=== PATIENT | male | born 1965 | race Caucasian/White ===

== ENCOUNTER → 2016-11-24 | Outpatient (CLI) | payer MEDICARE, OTHER ==
[2016-11-24 11:46] LABS: INR 1.3 (<1.1); Prothrombin Time 12.9 sec (9.0-12.0)
== END | disposition home or self-care (01) ==
LOC: LABWHC1 11:08
PROVIDERS: ATTEND Psychiatry & Neurology Neurology
DX: Z51.81 Encounter for therapeutic drug level monitoring (principal); D65 Disseminated intravascular coagulation [defibrination syndrome]; Z79.01 Long term (current) use of anticoagulants
CPT/HCPCS: 36415; 85610

== ENCOUNTER 2016-12-27 11:57 | Day surgery (SDC) | payer MEDICARE, OTHER ==
[2016-12-20 12:35] VITALS: BMI 34.8
[~2016-12-27 11:57] MED LIST: DEXAMETHASONE SOD PHOSPHATE 10 MG/ML 1 ML VIAL IV ONE; HEPARIN SODIUM,PORCINE 5,000 UNIT/ML 1 ML VIAL SQ ONE; LACTATED RINGERS 1,000 ML IV SCH; MIDAZOLAM 2 MG/2 ML VIAL IV PRN; ONDANSETRON 4 MG/2 ML VIAL IVP ONE; SCOPOLAMINE 1.5MG/72HR PATCH TRANSDERM ONE; ceFAZolin 2 GM in SODIUM CHLORIDE 0.9% 100 ML IVPB ONE
[2016-12-27] MEDS ORDERED: LIDOCAINE 1% 20 ML VIAL (10MG/ML) FOR IV START INTRADERMA ONE ×2 (12:21→12:25)
[2016-12-27] MEDS ORDERED: LACTATED RINGERS 1,000 ML IV ONE ×2 (12:24→15:15)
--- NOTE | 2016-12-27 12:41 | P.HPIHPCON ---
History of Present Illness H&P Date: 12/27/16 Chief Complaint: painful inguinal swellings Patient is a 51-year-old who presented with a left inguinal swelling which was used to lying down. The patient also has had previous history of melanoma excision with lymph node dissection on the right side. His no nausea or vomiting or fever no chills. His neurologic any more weight. Consent for Procedure: I have explained the operation/procedure to the patient, including the risks, benefits, side effects, alternative therapies (including not receiving the proposed treatment or service), the likelihood of the patient achieving his/her goals, and potential recuperation problems for the procedure/sedation/analgesia , as well as any blood products, if indicated. I also explained to the patient the risks, benefits and side effects of the alternatives, as well as the risks related to not receiving the proposed procedure, care, treatment, or services. - Constitutional Constitutional: Denies chills, Denies fever - EENT Eyes: denies blurred vision, denies pain Ears, nose, mouth and throat: Denies headache, Denies sore throat - Cardiovascular Cardiovascular: Denies chest pain, Denies shortness of breath - Respiratory Respiratory: Denies cough, Denies 7 - Gastrointestinal Gastrointestinal: Denies abdominal pain, Denies diarrhea, Denies nausea, Denies vomiting - Musculoskeletal Comment: Left groin discomfort at the site of the previous surgery Musculoskeletal: Denies myalgias - Integumentary Integumentary: Denies pruritus, Denies rash - Psychiatric Psychiatric: Denies anxiety, Denies depression - Endocrine Endocrine: Denies fatigue, Denies weight change - Hematologic/Lymphatic Hematologic/Lymphatic: Denies as per HPI, Denies easy bleeding, Denies easy bruising, Denies lymphadenopathy, Denies lymphedema, Denies thrombophilia Past Medical History Past Medical History: Cancer, Deep Vein Thrombosis (DVT), GERD/Reflux, Hyperlipidemia, Hypertension, Sleep Apnea/CPAP/BIPAP Additional Past Medical History / Comment(s): melanoma stage IV RT LEG, PAST JAMES WELDING INJ TO LT HAND , USES A CPAP MACHINE, HIATAL HERNIA ,DDD, CHRONIC BACK PAIN, MIGRAINES, DVT RUE History of Any Multi-Drug Resistant Organisms: MRSA Date of last positivie culture/infection: 2004 MDRO Source:: left index finger Additional Past Surgical History / Comment(s): left hand 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., right ziegler CA STAGE IV MELANOMA REMOVED), lymph node surgery RT LEG, PAST PAIN CLIINC PROCEDURES, RT ARM PICC LINE ,SINCE REMOVED, skin CA removed BILAT shoulders, EGD, RECENT SUN SPOTS REMOVED FROM FACE Past Anesthesia/Blood Transfusion Reactions: No Reported Reaction Smoking Status: Former smoker - Past Family History Mother Family Medical History: Hypertension Father Family Medical History: Diabetes Mellitus Medications and Allergies Home Medications Medication Instructions Recorded Confirmed Type Cyclobenzaprine [Flexeril] 10 mg PO BID 07/29/14 12/27/16 History Gabapentin [Neurontin] 300 mg PO Q6H 07/29/14 12/27/16 History Melatonin 10 mg PO HS 07/29/14 12/27/16 History Sennosides [Senokot] 8.6 mg PO BID 07/29/14 12/27/16 History Simvastatin [Zocor] 20 mg PO HS 07/29/14 12/27/16 History risperiDONE [RisperDAL] 0.5 mg PO HS 07/29/14 12/27/16 History traZODone HCL [Oleptro ER] 150 mg PO HS 07/29/14 12/27/16 History Ascorbic Acid [Vitamin C] 1,000 mg PO DAILY 11/13/15 12/27/16 History Citalopram Hydrobromide [CeleXA] 10 mg PO HS 11/13/15 12/27/16 History LORazepam [Ativan] 1 mg PO BID 11/13/15 12/27/16 History Multivit-Mins/Iron/Folic/Lycop 1 tab PO QAM 11/13/15 12/27/16 History [Centrum Men's Tablet] Vitamin B Complex 1 cap PO BID 11/13/15 12/27/16 History fentaNYL 75MCG/HR PATCH [Duragesic 1 patch TRANSDERM Q72H 11/13/15 12/27/16 History 75MCG/HR] Atenolol 100 mg PO QAM 12/07/15 12/27/16 History [place]-3 Fatty Acids/Fish Oil [Fish 1 cap PO QAM 12/07/15 12/27/16 History Oil 1,000 mg Softgel] Cholecalciferol [Vitamin D3] 5,000 unit PO DAILY 08/08/17 08/15/17 History Lisinopril [Prinivil] 10 mg PO DAILY 12/20/16 12/27/16 History Meclizine [Antivert] 25 mg PO TID 12/20/16 12/27/16 History Warfarin [Coumadin] 10 mg PO DAILY 12/20/16 12/27/16 History Allergies Allergy/AdvReac Type Severity Reaction Status Date / Time No Known Allergies Allergy Verified 12/27/16 12:14 Surgical - Exam Vital Signs Temp Pulse Resp BP Pulse Ox 98.4 F 82 18 145/86 96 12/27/16 12:19 12/27/16 12:19 12/27/16 12:19 12/27/16 12:19 12/27/16 12:19 - General well developed, well nourished, no distress - Eyes PERRL, normal ocular movement - ENT normal pinna, normal nares, normal mucosa - Neck trachea midline - Respiratory normal expansion, normal respiratory effort - Cardiovascular Warm extremities Rhythm: regular - Abdomen Abdomen: soft, non tender - Genitourinary Obvious reducible left inguinal hernia. Minimal right groin swelling at this time. Could simply be lymphadenopathy - Integumentary no rash, no abnormal pigmentation - Neurologic no disoriented, no combative - Musculoskeletal normal gait - Psychiatric oriented to time, oriented to person, oriented to place, speech is normal, memory intact Results - Imaging CT scan - abdomen: report reviewed US - pelvic: report reviewed (Patient is an large lymph nodes in both sides. He also is being followed for that for his melanoma. He is left inguinal swelling which is reducible. Clinically believe it is an inguinal hernia) Assessment and Plan (1) Melanoma Status: Acute (2) Inguinal hernia bilateral, non-recurrent Status: Acute (3) Deep venous thrombosis of upper extremity Status: Acute Plan: Patient's multiple medical problems. Flonase a previous history of DVT. NT with Coumadin toxicity. He also has a previous history of melanoma excision with the dissection on the right side. He presented with left left groin swelling. Antral in the right groin. Computed tomography scan and into that succeeded and did suggest an wall hernias bilaterally. Ultrasound repeated did not reveal anything. Clinical examination he jet dyeing machine tender with a swelling in the left side less on the right side. Due to the findings were Confirmed clinical examination I recommended arm and left inguinal hernia repair with mesh and possible bilateral opening of what I see his been consented he understands the risks and benefits I will proceed with the surgery.
[2016-12-27] MEDS ORDERED: GLYCOPYRROLATE 0.2 MG/ML 2 ML VIAL ONE (13:00)
[2016-12-27] MEDS ORDERED: fentaNYL (PF) 50 MCG/ML 2 ML AMP ONE (13:00)
[2016-12-27] MEDS ORDERED: PROPOFOL 10 MG/ML 20 ML VIAL IV ONE (13:00)
[2016-12-27] MEDS ORDERED: HYDROmorphone (PF) 1 MG/ML ONE (13:00)
[2016-12-27] MEDS ORDERED: ROCURONIUM BROMIDE 10 MG/ML 10 ML VIAL IV ONE (13:00)
[2016-12-27] MEDS ORDERED: LIDOCAINE 1% INJ 10MG/ML (20 ML MDV) ONE (13:00)
[2016-12-27] MEDS ORDERED: SUCCINYLCHOLINE CHLORIDE VIAL 200 MG/10 ML VIAL IV ONE (13:00)
[2016-12-27] MEDS ORDERED: MIDAZOLAM 2 MG/2 ML VIAL ONE (13:00)
[2016-12-27] MEDS ORDERED: NEOSTIGMINE 1 MG/ML 10 ML VIAL ONE (13:00)
[2016-12-27 13:14] LABS: Prothrombin Time 10.6 sec (9.0-12.0)
[2016-12-27] MEDS ORDERED: BUPIVACAINE-EPI 0.5%-1:200,000 10 ML VIAL SQ ONE (13:31)
[2016-12-27 15:24] VITALS: RESP 16; TEMP 97.7
--- NOTE | 2016-12-27 15:37 | P.OP ---
Date of Procedure: 12/27/16 Preoperative Diagnosis: Left inguinal hernia, possible bilateral Postoperative Diagnosis: Left indirect inguinal hernia with large cord lipoma Procedure(s) Performed: Robot assisted laparoscopic repair of left inguinal hernia with mesh Implants: Anesthesia: JESU Surgeon: Quoc Carter Estimated Blood Loss (ml): 40 Pathology: none sent Condition: stable Disposition: PACU Indications for Procedure: Operative Findings: small indirect inguinal hernia with a large cord lipoma on the left side Description of Procedure: Patient is seen in the preoperative area and informed consent was obtained patient and then The patient was brought to the operating room and placed in supine position. General anesthesia with endotracheal intubation was performed as per anesthesia team. A gallego catheter was inserted under sterile aseptic precautions. Chlorhexidine was used to prep the skin followed by application of sterile drapes . He was placed in the lithotomy position. A timeout was performed to verify correct patient, correct procedure and correct side. Patient was confirmed to receive perioperative IV antibiotics, subcutaneous heparin 5000 units and bilateral SCDs were placed. The left upper quadrant point was identified and a stab incision was made. I was unsuccessful entering the abdominal cavity appropriately with a Veress needle therefore a 5 mm port was introduced into the left upper quadrant using the Optiview technique after which a 12 mm port was placed in the supraumbilical position and a 8 mm port in the right lower quadrant and then after that the left-sided 5 mm port was replaced with a robot 8 mm port under direct vision. The robot was then docked with the central camera port and the 2 side working ports. The 30 degree of scope was introduced and the abdomen down through the 12 mm port site. Bipolar fenestrated forceps was taken in the left hand and monopolar scissors in the right hand after which the median umbilical fold was retracted laterally towards the left side a small incision was made at the junction of the umbilical fold and the peritoneum and carried all the way laterally thus creating a small plane in the preperitoneal space. The preperitoneal plane was sticky with a difficult dissection to pull the peritoneum down and once that was done a small indirect inguinal hernia was identified reduced. There was also a large cord lipoma which was dissected off the cord meticulously in taken off. Dissection down towards the Jesus's ligament was very difficult and a lot of fatty tissue there. There was some bleeding which required use of 2 sponges and then electrocautery to control. After appropriate control of bleeding and appropriate flap creation was trimmed 10 x 15 Bard Pro fondant puff maker mesh was introduced and placed. The peritoneum was closed with the help of a six- inch V lock and the holes were closed with the help of 3-0 Vicryl. All the sponges needles were removed. There was no hernia in the right side. Patient understood well the wound complications. His exudate and taken to recovery room in stable condition. Plan - Discharge Summary New Discharge Prescriptions: New Ibuprofen [Motrin] 800 mg PO Q8HR PRN #30 tab PRN Reason: Pain No Action risperiDONE [RisperDAL] 0.5 mg PO HS Simvastatin [Zocor] 20 mg PO HS Sennosides [Senokot] 8.6 mg PO BID Gabapentin [Neurontin] 300 mg PO Q6H Cyclobenzaprine [Flexeril] 10 mg PO BID traZODone HCL [Oleptro ER] 150 mg PO HS Melatonin 10 mg PO HS LORazepam [Ativan] 1 mg PO BID Citalopram Hydrobromide [CeleXA] 10 mg PO HS fentaNYL 75MCG/HR PATCH [Duragesic 75MCG/HR] 1 patch TRANSDERM Q72H Vitamin B Complex 1 cap PO BID Multivit-Mins/Iron/Folic/Lycop [Centrum Men's Tablet] 1 tab PO QAM Ascorbic Acid [Vitamin C] 1,000 mg PO DAILY Atenolol 100 mg PO QAM [place]-3 Fatty Acids/Fish Oil [Fish Oil 1,000 mg Softgel] 1 cap PO QAM Warfarin [Coumadin] 10 mg PO DAILY Meclizine [Antivert] 25 mg PO TID Lisinopril [Prinivil] 10 mg PO DAILY Cholecalciferol [Vitamin D3] 5,000 unit PO DAILY Discharge Medication List Cyclobenzaprine [Flexeril] 10 mg PO BID 07/29/14 [History] Gabapentin [Neurontin] 300 mg PO Q6H 07/29/14 [History] Melatonin 10 mg PO HS 07/29/14 [History] Sennosides [Senokot] 8.6 mg PO BID 07/29/14 [History] Simvastatin [Zocor] 20 mg PO HS 07/29/14 [History] risperiDONE [RisperDAL] 0.5 mg PO HS 07/29/14 [History] traZODone HCL [Oleptro ER] 150 mg PO HS 07/29/14 [History] Ascorbic Acid [Vitamin C] 1,000 mg PO DAILY 11/13/15 [History] Citalopram Hydrobromide [CeleXA] 10 mg PO HS 11/13/15 [History] LORazepam [Ativan] 1 mg PO BID 11/13/15 [History] Multivit-Mins/Iron/Folic/Lycop [Centrum Men's Tablet] 1 tab PO QAM 11/13/15 [ History] Vitamin B Complex 1 cap PO BID 11/13/15 [History] fentaNYL 75MCG/HR PATCH [Duragesic 75MCG/HR] 1 patch TRANSDERM Q72H 11/13/15 [ History] Atenolol 100 mg PO QAM 12/07/15 [History] [place]-3 Fatty Acids/Fish Oil [Fish Oil 1,000 mg Softgel] 1 cap PO QAM 12/07/15 [ History] Cholecalciferol [Vitamin D3] 5,000 unit PO DAILY 12/20/16 [History] Lisinopril [Prinivil] 10 mg PO DAILY 12/20/16 [History] Meclizine [Antivert] 25 mg PO TID 12/20/16 [History] Warfarin [Coumadin] 10 mg PO DAILY 12/20/16 [History] Ibuprofen [Motrin] 800 mg PO Q8HR PRN #30 tab 12/27/16 [Rx]
[2016-12-27] MEDS: HYDROmorphone 1 MG/ML 1 ML SYRINGE IVP PRN ×2 (16:10→16:20)
[2016-12-27 17:02] VITALS: BP 108/63; PULSE 105
== END 2016-12-27 17:45 | disposition home or self-care (01) ==
LOC: OR 11:57 → EDSTATUS 13:00 → OR 17:45
PROVIDERS: ATTEND Surgery
DX: K40.90 Unilateral inguinal hernia, without obstruction or gangrene, not specified as recurrent (principal); D17.6 Benign lipomatous neoplasm of spermatic cord; Z79.01 Long term (current) use of anticoagulants; Z79.899 Other long term (current) drug therapy; I10 Essential (primary) hypertension; E78.5 Hyperlipidemia, unspecified; G47.33 Obstructive sleep apnea (adult) (pediatric); K21.9 Gastro-esophageal reflux disease without esophagitis
CPT/HCPCS: 85610; 49650; C1781; J2250; J0330; J1644; J1100; J2710; J0690; J2405; J2001; J3010; J1170; J2704

== ENCOUNTER → 2017-02-03 | Outpatient (CLI) | payer MEDICARE, OTHER ==
--- NOTE | 2017-02-03 10:31 | CT ---
EXAMINATION TYPE: CT brain wo con DATE OF EXAM: 02/03/2017 COMPARISON: NONE HISTORY: Headaches CT DLP: 1029.9 mGycm. Automated Exposure Control for Dose Reduction was Utilized. TECHNIQUE: CT scan of the head is performed without contrast. FINDINGS: There is no acute intracranial hemorrhage, mass effect, or midline shift identified. The ventricles and sulci are within normal limits in size. The globes are intact and the visualized sin uses are clear. There is sclerosis of the frontal calvarium which is nonspecific. No destructive changes seen. 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 IMPRESSION: 1. No acute intracranial hemorrhage, mass effect, or midline shift is seen. If there is concern for i ntracranial metastases dedicated MRI with contrast would be recommended. 2. Nonspecific sclerosis of the frontal bone.
--- NOTE | 2017-02-03 10:51 | US ---
EXAMINATION TYPE: US venous doppler duplex LE RT DATE OF EXAM: 02/03/2017 10:44 AM COMPARISON: NONE CLINICAL HISTORY: R60.0 edema. SIDE PERFORMED: Right TECHNIQUE: The lower extremity deep venous system is examined utilizing real time linear array sonog kacey with graded compression, doppler sonography and color-flow sonography. VESSELS IMAGED: External Iliac Vein (EIV) Common Femoral Vein Deep Femoral Vein Greater Saphenous Vein * Femoral Vein Popliteal Vein Small Saphenous Vein * Proximal Calf Veins (* superficial vessels) Patient has moderate swelling. Right Leg: Negative for DVT Results phoned to Wen LAWSON) at office immediately following exam. IMPRESSION: 1. No diagnostic evidence of DVT as visualized.
== END | disposition home or self-care (01) ==
LOC: RADCTMAIN 09:58
PROVIDERS: ATTEND Physician Assistant
DX: G37.8 Other specified demyelinating diseases of central nervous system (principal); R51 Headache; R60.0 Localized edema
CPT/HCPCS: 70450

== ENCOUNTER → 2017-02-16 | Outpatient (CLI) | payer MEDICARE, OTHER ==
[2017-02-16 09:53] LABS: Appearance,Urine Clear (Clear); Bilirubin,Urine Negative (Negative); Glucose,Urine (UA) Negative (Negative); Ketones,Urine Negative (Negative); Leukocyte Esterase,Urine Negative (Negative); Nitrite,Urine Negative (Negative); Protein,Urine Negative (Negative); Specific Gravity,Urine 1.015 (1.001-1.035); UA Billing (MACRO vs. MICRO) CHEM; Urobilinogen,Urine <2.0 mg/dL (<2.0)
[2017-02-16 09:54] LABS: Basophils % (A) 0 %; CH 32.7; CHCM 34.6; Eosinophils # (A) 0.1 k/uL (0-0.7); Eosinophils % (A) 2 %; HCT 48.4 % (39.0-53.0); HDW 2.92; HGB 16.8 gm/dL (13.0-17.5); Luc # (Auto) 0.18; Luc % (Auto) 3; Lymphocytes % (A) 30 %; MCH 32.9 pg (25.0-35.0); MCHC 34.6 g/dL (31.0-37.0); MCV 94.9 fL (80.0-100.0); Mean Platelet Volume 7.2; Monocytes # (A) 0.3 k/uL (0-1.0); Monocytes % (A) 5 %; Neutrophils # (A) 3.9 k/uL (1.3-7.7); Neutrophils % (A) 60 %; RBC 5.11 m/uL (4.30-5.90); RDW 13.1 % (11.5-15.5); WBC 6.5 k/uL (3.8-10.6); WBC (Perox) 6.42
[2017-02-16 10:13] LABS: Anion Gap 11 mmol/L; Blood Urea Nitrogen 11 mg/dL (9-20); Calcium 9.2 mg/dL (8.4-10.2); Carbon Dioxide 26 mmol/L (22-30); Chloride 105 mmol/L (98-107); Glucose 110 mg/dL (74-99); Non-African American GFR(MDRD) >60 (>60 ml/min/1.73 sqM); Potassium 4.6 mmol/L (3.5-5.1); Sodium 142 mmol/L (137-145)
== END | disposition home or self-care (01) ==
LOC: LABPAT 09:14
PROVIDERS: ATTEND Urology
DX: Z01.812 Encounter for preprocedural laboratory examination (principal); N52.9 Male erectile dysfunction, unspecified; R35.0 Frequency of micturition; Z79.899 Other long term (current) drug therapy
CPT/HCPCS: 36415; 80048; 81003; 85025; 87086

== ENCOUNTER → 2017-02-21 | Outpatient (CLI) | payer MEDICARE, OTHER ==
--- NOTE | 2017-02-22 01:12 | MR ---
EXAMINATION TYPE: MR lumbar spine wo/w con DATE OF EXAM: 02/21/2017 COMPARISON: NONE HISTORY: 51-year-old male with previous low back surgery 12/27/2016, back pain. Technique: Multiplanar, multisequence images of the lumbar spine were obtained before and after admin istration of 11.5 mL intravenous Gadavist gadolinium contrast. FINDINGS: Vertebral body heights are preserved and alignment is maintained. Facet arthropathy mid to lower lumbar spine. Variable mild desiccation of intervertebral discs with bulging discs. Posterior annular fissure is se en at L1-L2, L2-L3, and L4-L5. Conus medullaris is normal. No suspicious bone marrow replacement. At T12-L1, no spinal canal or neuroforaminal stenosis. At L1-L2, mild bulging disc and mild facet degenerative change. No significant canal or foraminal juan josé nosis. At L2-L3, mild bulging disc and mild facet degenerative change. No significant canal or foraminal juan josé nosis. At L3-L4, there is facet degenerative change with minimal bilateral inferior foraminal narrowing. No spinal canal stenosis. At L4-L5, there is bulging disc with hypertrophic facet arthropathy and posterior annular fissure. Ch anges result in moderate to severe right and moderate left neuroforaminal stenosis. There appears to be prominent displacement of the exiting nerve roots traverse their neuroforamina. No spinal canal st enosis. At L5-S1, minimal bulging disc. There is also facet degenerative change. Changes result in mild right neuroforaminal stenosis. No spinal canal stenosis. No abnormal enhancement with the spinal canal. IMPRESSION: 1. Mild multilevel degenerative disc disease with variable mild disc desiccation and disc bulging. Po sterior annular fissures are present at L1-L2, L2-L3, L4-L5. 2. Additional facet arthropathy mid to lower lumbar spine. 3. Changes result in moderate to severe right and moderate left neuroforaminal stenosis at L4-L5 with prominent displacement of the exiting L4 nerve roots as they traverse the neural foramina. 4. No canal compromise identified.
== END | disposition home or self-care (01) ==
LOC: RADMRIMAIN 15:06
PROVIDERS: ATTEND Physician Assistant
DX: M51.16 Intervertebral disc disorders with radiculopathy, lumbar region (principal); M99.73 Connective tissue and disc stenosis of intervertebral foramina of lumbar region; M46.96 Unspecified inflammatory spondylopathy, lumbar region; C43.9 Malignant melanoma of skin, unspecified; M79.604 Pain in right leg
CPT/HCPCS: 72158; A9581

== ENCOUNTER 2017-02-22 06:27 | Day surgery (SDC) | payer MEDICARE, OTHER ==
[2017-02-16 14:55] VITALS: BMI 34.7
[~2017-02-22 06:27] MED LIST changes: +AMPICILLIN 1,000 MG in SODIUM CHLORIDE 0.9% 50 ML IVPB ONE; +GENTAMICIN 160 MG in SODIUM CHLORIDE 0.9% 100 ML IVPB ONE; -HEPARIN SODIUM,PORCINE 5,000 UNIT/ML 1 ML VIAL SQ ONE; +LIDOCAINE 1% 20 ML VIAL (10MG/ML) FOR IV START INTRADERMA PRN; -ceFAZolin 2 GM in SODIUM CHLORIDE 0.9% 100 ML IVPB ONE
[2017-02-22] MEDS ORDERED: LABETALOL 5 MG/ML VIAL MDV IVP STA (07:06)
[2017-02-22 07:14] LABS: INR 1.1 (<1.2); Partial Thromboplastin Time 23.8 sec (22.0-30.0)
[2017-02-22] MEDS ORDERED: GLYCOPYRROLATE 0.2 MG/ML 2 ML VIAL ONE (07:29)
[2017-02-22] MEDS ORDERED: LIDOCAINE 1% INJ 10MG/ML (20 ML MDV) ONE (07:29)
[2017-02-22] MEDS ORDERED: PROPOFOL 10 MG/ML 20 ML VIAL IV ONE (07:29)
[2017-02-22] MEDS ORDERED: HYDROmorphone (PF) 1 MG/ML ONE (07:29)
[2017-02-22] MEDS ORDERED: PHENYLEPHRINE-0.9% NACL SYG 1 MG/10 ML SYRINGE ONE (07:29)
[2017-02-22] MEDS ORDERED: SUCCINYLCHOLINE CHLORIDE VIAL 200 MG/10 ML VIAL IV ONE (07:29)
[2017-02-22] MEDS ORDERED: NEOSTIGMINE 1 MG/ML 10 ML VIAL ONE (07:29)
[2017-02-22] MEDS ORDERED: fentaNYL (PF) 50 MCG/ML 2 ML AMP ONE (07:29)
[2017-02-22] MEDS ORDERED: ROCURONIUM BROMIDE 10 MG/ML 10 ML VIAL IV ONE (07:29)
[2017-02-22] MEDS ORDERED: MIDAZOLAM 2 MG/2 ML VIAL ONE (07:29)
[2017-02-22] MEDS ORDERED: GENTAMICIN 80 MG in SODIUM CHLORIDE 0.9% 200 ML IRRIGATION ONE (08:27)
--- NOTE | 2017-02-22 09:23 | P.OP ---
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 He has had impotence ever since his surgical procedure. He has failed oral medication , testosterone replacement and declined other alternatives. Discussed at length a surgical implant. He understands risks and complications including infection bleeding pain injury to adjacent organs erosion lack of satisfaction and if fails correction whatsoever. He understands and accepts that. Description of Procedure: the patient is brought to the operating suite and given a successful general endotracheal anesthesia. He has a sterile prep and drape. A midline incision from the base of the penis just above the pubis was made. The subcutaneous tissues identified and opened. The rectus fascias identified and opened in the midline. The corpora cavernosum bilaterally are exposed. The rectus fascia is opened in the midline. The prevesical space is identified and opened. A pouch was created for the balloon reservoir. The balloon reservoir was placed with the tubing coming out through the external ring. The rectus fascias closed with 0 PDS. The balloon reservoir is filled with 65 mL of saline. Each corpora identified and cleaned from subcutaneous tissue. Stay stitches with 3-0 PDS are placed in the corpora. Corporotomies were made bilaterally. Corpora dilated proximally and distally with Metzenbaum scissors and Hegar dilators 9-14. The measurement of the corpora 10 cm proximal and 10 cm distal bilaterally. I will use an 18 cm implant with 2 cm rear tip extenders. The implants are prepared. I then used the Mandie introducer to pass the implants into the corpora distally bilaterally. I then pass the proximal ends of the implant into the corpora bilaterally. Implants are inflated and then deflated without buckling. I closed the corporotomies with running 3-0 PDS. I again inflate and deflate the implant and it is seated nicely. I then created a space for the pump in the right hemiscrotum. I then connected the reservoir to the pump with straight connectors. I then pump the implant one more time to make sure it inflates and deflates. It does nicely. I then irrigate thoroughly. I closed the subcutaneous tissue with 3-0 chromic. The skin is closed with 4-0 Vicryl. The bladder is drained. The patient's awakened and returned recovery room good condition. Blood loss was 25 mL. He'll be discharged home upon recovery and found the office in one week.
[2017-02-22 09:31] VITALS: TEMP 96.9
[2017-02-22] MEDS: HYDROmorphone 0.5 MG/0.5 ML SYRINGE IVP PRN ×2 (09:48→10:10)
[2017-02-22] MEDS ORDERED: HYDROcodone/APAP 7.5-325MG 1 EACH TAB PO ONE (11:06)
[2017-02-22] MEDS ORDERED: LACTATED RINGERS 1,000 ML IV ONE (11:18)
[2017-02-22 13:58] VITALS: BP 130/76; PULSE 60; RESP 18
== END 2017-02-22 14:03 | disposition home or self-care (01) ==
LOC: OR 06:27
PROVIDERS: ATTEND Urology
DX: N52.8 Other male erectile dysfunction (principal); E29.1 Testicular hypofunction; Z98.890 Other specified postprocedural states; M54.9 Dorsalgia, unspecified; Z85.820 Personal history of malignant melanoma of skin; Z86.718 Personal history of other venous thrombosis and embolism; Z79.01 Long term (current) use of anticoagulants; E78.5 Hyperlipidemia, unspecified; I10 Essential (primary) hypertension; F32.9 Major depressive disorder, single episode, unspecified; G47.33 Obstructive sleep apnea (adult) (pediatric); Z87.891 Personal history of nicotine dependence; K21.9 Gastro-esophageal reflux disease without esophagitis; Z86.14 Personal history of Methicillin resistant Staphylococcus aureus infection; K44.9 Diaphragmatic hernia without obstruction or gangrene; N20.0 Calculus of kidney; Z79.82 Long term (current) use of aspirin; Z79.891 Long term (current) use of opiate analgesic; Z79.52 Long term (current) use of systemic steroids; Z79.899 Other long term (current) drug therapy; Z88.5 Allergy status to narcotic agent
CPT/HCPCS: 54405; 85610; 85730; C1713; J2250; J0330; J1580 ×2; J1100; J2710; J2405; J2001; J3010; J0290; J1170 ×2; J2370; J2704

== ENCOUNTER 2017-05-29 10:54 | Emergency (ER) | payer MEDICARE, OTHER ==
[2017-05-29] MEDS ORDERED: HYDROmorphone 2 MG/ML 1 ML SYRINGE IVP STA (12:46)
[2017-05-29] MEDS ORDERED: SODIUM CHLORIDE 0.9% 1,000 ML IV STA ×2 (12:46)
[2017-05-29] MEDS ORDERED: RX INFO: IV CONTRAST WAS GIVEN 1 EACH MISC MISCELLANE PRN (12:46)
[2017-05-29] MEDS ORDERED: ONDANSETRON 4 MG/2 ML VIAL IVP STA (12:46)
[2017-05-29] MEDS ORDERED: PANTOPRAZOLE 40 MG/10 ML VIAL IVP STA (12:46)
[2017-05-29 13:13] LABS: Appearance,Urine Clear (Clear); Bilirubin,Urine Negative (Negative); Blood,Urine Negative (Negative); Color,Urine Dark Yellow; Glucose,Urine (UA) Negative (Negative); Ketones,Urine Negative (Negative); Leukocyte Esterase,Urine Negative (Negative); Nitrite,Urine Negative (Negative); PH, Urine 5.5 (5.0-8.0); Protein,Urine Negative (Negative); Specific Gravity,Urine 1.019 (1.001-1.035); Urobilinogen,Urine <2.0 mg/dL (<2.0)
[2017-05-29 13:15] LABS: Basophils # (A) 0.1 k/uL (0-0.2); Basophils % (A) 0 %; Eosinophils # (A) 0.2 k/uL (0-0.7); Eosinophils % (A) 2 %; HCT 46.4 % (39.0-53.0); HGB 15.5 gm/dL (13.0-17.5); Lymphocytes # (A) 2.1 k/uL (1.0-4.8); Lymphocytes % (A) 19 %; MCH 31.2 pg (25.0-35.0); MCHC 33.4 g/dL (31.0-37.0); MCV 93.5 fL (80.0-100.0); Monocytes # (A) 0.5 k/uL (0-1.0); Monocytes % (A) 5 %; Neutrophils # (A) 8.1 k/uL (1.3-7.7); Neutrophils % (A) 73 %; Platelet Count 190 k/uL (150-450); RBC 4.96 m/uL (4.30-5.90); RDW 14.2 % (11.5-15.5); WBC 11.1 k/uL (3.8-10.6)
[2017-05-29 13:21] LABS: INR 2.8 (<1.2); Partial Thromboplastin Time 31.1 sec (22.0-30.0); Prothrombin Time 24.9 sec (9.0-12.0)
[2017-05-29 13:22] LABS: ALT 44 U/L (21-72); AST 41 U/L (17-59); Albumin 4.4 g/dL (3.5-5.0); Alkaline Phosphatase 58 U/L (38-126); Amylase 55 U/L (30-110); Anion Gap 10 mmol/L; Blood Urea Nitrogen 14 mg/dL (9-20); Calcium 9.3 mg/dL (8.4-10.2); Carbon Dioxide 28 mmol/L (22-30); Chloride 105 mmol/L (98-107); Glucose 99 mg/dL (74-99); Lipase 115 U/L (23-300); Potassium 4.4 mmol/L (3.5-5.1); Sodium 143 mmol/L (137-145); Total Bilirubin 0.7 mg/dL (0.2-1.3); Total Protein 7.2 g/dL (6.3-8.2)
--- NOTE | 2017-05-29 14:00 | CT ---
EXAMINATION TYPE: CT abdomen pelvis w con DATE OF EXAM: 05/29/2017 COMPARISON: NONE HISTORY: RLQ pain CT DLP: 1568.9 mGycm CONTRAST: CT scan of the abdomen and pelvis is performed without Oral Contrast and with IV Contrast, patient in jected with 100 mL of Omnipaque 300. FINDINGS: LUNG BASES-: No visible nodule. No infiltrate. LIVER/GB: No calcified gallstones. No space occupying hepatic lesion. Biliary tree is of normal ca liber. PANCREAS: No inflammation. No distinct mass. SPLEEN: No splenic enlargement. No lesion seen. ADRENALS: No nodule. No thickening. KIDNEYS/BLADDER: No hydronephrosis. Nonobstructing sub-3 mm calculus lower pole right kidney.. No d isctinct renal mass. Urinary bladder grossly unremarkable. BOWEL: Normal appendix. Normal bowel caliber. No inflammation. GENITAL ORGANS: No gross abnormality. LYMPH NODES: No greater than 1cm abdominal or pelvic lymph nodes are appreciated. AORTA: No significant abnormality. OSSEOUS STRUCTURES: No significant abnormality is seen. OTHER: Penile implant intact. No significant additional abnormality is seen. IMPRESSION: 1. Nonobstructing nephrolithiasis.
--- NOTE | 2017-05-29 14:38 | ED ---
Abdominal Pain HPI - General Chief Complaint: Abdominal Pain Stated Complaint: ABDOMINAL PAIN Time Seen by Provider: 05/29/17 12:41 Source: patient Mode of arrival: ambulatory Limitations: no limitations - History of Present Illness Initial Comments: This 51-year-old white male presents with a complaint of some abdominal pain, nausea, and vomiting which is been present over the past 2 days. He denies any diarrhea. He denies any known fevers. The pain is primarily into his right lower abdomen. He denies any previously known similar incidents. He has had problems with a right inguinal hernia in the past. He apparently underwent surgery on his left inguinal hernia several months ago but they did not complete the right side as he had some swollen lymph nodes in the area. He states that the pain is fairly severe. He does have a fentanyl patch but is not helping. He does have a history of melanoma but this currently is in remission. He denies any frequency urgency or dysuria. He does complain of some fatigue over the past 2 days as well. No other complaints or modifying factors. - Related Data Home Medications Medication Instructions Recorded Confirmed Cyclobenzaprine [Flexeril] 10 mg PO BID 07/29/14 05/29/17 Gabapentin [Neurontin] 300 mg PO Q6H 07/29/14 05/29/17 Melatonin 10 mg PO HS 07/29/14 05/29/17 Sennosides [Senokot] 8.6 mg PO BID 07/29/14 05/29/17 Simvastatin [Zocor] 20 mg PO DAILY 07/29/14 05/29/17 risperiDONE [RisperDAL] 0.5 mg PO HS 07/29/14 05/29/17 Ascorbic Acid [Vitamin C] 2,000 mg PO DAILY 11/13/15 05/29/17 Citalopram Hydrobromide [CeleXA] 10 mg PO DAILY 11/13/15 05/29/17 LORazepam [Ativan] 1 mg PO BID 11/13/15 05/29/17 Multivit-Mins/Iron/Folic/Lycop 1 tab PO QAM 11/13/15 05/29/17 [Centrum Men's Tablet] Vitamin B Complex 1 cap PO BID 11/13/15 05/29/17 fentaNYL 75MCG/HR PATCH [Duragesic 1 patch TRANSDERM Q72H 11/13/15 05/29/17 75MCG/HR] Atenolol 100 mg PO QAM 12/07/15 05/29/17 [place]-3 Fatty Acids/Fish Oil [Fish 1 cap PO QAM 12/07/15 05/29/17 Oil 1,000 mg Softgel] Lisinopril [Prinivil] 10 mg PO DAILY 12/20/16 05/29/17 Meclizine [Antivert] 25 mg PO TID 12/20/16 05/29/17 Warfarin [Coumadin] 5 mg PO BID 02/16/17 05/29/17 Cholecalciferol [Vitamin D3] 500 unit PO DAILY 05/29/17 05/29/17 Simethicone [Gas-X] 125 mg PO BID 05/29/17 05/29/17 traZODone HCL 150 mg PO DAILY 05/29/17 05/29/17 Previous Rx's Medication Instructions Recorded Dicyclomine [Bentyl] 20 mg PO QID PRN #20 tablet 05/29/17 Ondansetron [Zofran ODT] 8 mg PO Q8HR PRN #12 tab 05/29/17 Allergies Allergy/AdvReac Type Severity Reaction Status Date / Time No Known Allergies Allergy Verified 05/29/17 12:40 Review of Systems ROS Statement: Those systems with pertinent positive or pertinent negative responses have been documented in the HPI. ROS Other: All systems not noted in ROS Statement are negative. 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., right ziegler CA STAGE IV MELANOMA REMOVED), lymph node surgery RT LEG, PAST PAIN CLIINC PROCEDURES, RT ARM PICC LINE ,SINCE REMOVED, skin CA removed BILAT shoulders, EGD, RECENT SUN SPOTS REMOVED FROM FACE Past Anesthesia/Blood Transfusion Reactions: No Reported Reaction Past Psychological History: Depression Smoking Status: Former smoker Past Alcohol Use History: None Reported Past Drug Use History: None Reported - Past Family History Mother Family Medical History: Hypertension Father Family Medical History: Diabetes Mellitus General Exam - General Exam Comments Initial Comments: GENERAL: The patient is well nourished and well hydrated. VITAL SIGNS: Heart rate, blood pressure, respiratory rate reviewed as recorded in nurse's notes. EYES: Pupils are round and reactive. Extraocular movements are intact. No conjunctival / lid redness or swelling. ENT: No external evidence of injury, swelling, or ecchymosis. Airway is patent. Throat is clear. NECK: Nontender. No swelling or evidence of injury. No subcutaneous emphysema. Trachea is midline. No thyroid mass. HEART: Regular rate and rhythm. Good peripheral pulses. LUNGS/CHEST: Breath sounds clear and equal bilaterally. No rales, rhonchi, or wheezes. No ecchymosis, subcutaneous emphysema, or tenderness. ABDOMEN: There is some mild tenderness present in the right lower abdomen. No palpable masses or organomegaly. No peritoneal signs. No abdominal wall swelling or ecchymosis. Genitourinary: There is a penile pump in place. There is no identifiable hernias noted. EXTREMITIES: No extremity tenderness. Normal muscle tone and function. No thoracolumbar tenderness. NEUROLOGIC: Sensation is grossly intact. Cranial nerve exam reveals face is symmetrical, tongue is midline, speech is clear. SKIN: No abrasions or ecchymosis is noted. No induration or masses noted. PSYCHIATRIC: Alert and oriented. Appropriate behavior and judgment. Limitations: no limitations Course Vital Signs 05/29/17 11:13 Temperature 97.9 F Pulse Rate 86 Respiratory 20 Rate Blood Pressure 189/92 O2 Sat by Pulse 97 Oximetry Medical Decision Making - Medical Decision Making The patient was seen and examined. All diagnostics were reviewed. The patient receives Dilaudid and Zofran intravenously. The laboratory overall is fairly unremarkable with a very minimal leukocytosis. The urinalysis is clear. Computed tomography scan of the abdomen and pelvis does show some nonobstructing nephrolithiasis. There is no evidence of appendicitis. No other acute findings are noted. He is feeling improved on recheck. Overall, it is felt as though he may have a degree of viral gastritis or gastroenteritis. He is not having any diarrhea constipation currently but he is on heavy narcotics. Nevertheless, it is felt as though he is stable for discharge. Return parameters are discussed in detail. - Lab Data Result diagrams: 05/29/17 12:53 05/29/17 12:53 Lab Results 05/29/17 05/29/17 05/29/17 Range/Units 12:53 12:53 12:53 WBC 11.1 H (3.8-10.6) k/uL RBC 4.96 (4.30-5.90) m/uL Hgb 15.5 (13.0-17.5) gm/dL Hct 46.4 (39.0-53.0) % MCV 93.5 (80.0-100.0) fL MCH 31.2 (25.0-35.0) pg MCHC 33.4 (31.0-37.0) g/dL RDW 14.2 (11.5-15.5) % Plt Count 190 (150-450) k/uL Neutrophils % 73 % Lymphocytes % 19 % Monocytes % 5 % Eosinophils % 2 % Basophils % 0 % Neutrophils # 8.1 H (1.3-7.7) k/uL Lymphocytes # 2.1 (1.0-4.8) k/uL Monocytes # 0.5 (0-1.0) k/uL Eosinophils # 0.2 (0-0.7) k/uL Basophils # 0.1 (0-0.2) k/uL PT (9.0-12.0) sec INR (<1.2) APTT (22.0-30.0) sec Sodium 143 (137-145) mmol/L Potassium 4.4 (3.5-5.1) mmol/L Chloride 105 (98-107) mmol/L Carbon Dioxide 28 (22-30) mmol/L Anion Gap 10 mmol/L BUN 14 (9-20) mg/dL Creatinine 1.16 (0.66-1.25) mg/dL Est GFR (MDRD) Af Amer >60 (>60 ml/min/1.73 sqM) Est GFR (MDRD) Non-Af >60 (>60 ml/min/1.73 sqM) Glucose 99 (74-99) mg/dL Plasma Lactic Acid Shay (0.7-2.0) mmol/L Calcium 9.3 (8.4-10.2) mg/dL Total Bilirubin 0.7 (0.2-1.3) mg/dL AST 41 (17-59) U/L ALT 44 (21-72) U/L Alkaline Phosphatase 58 (38-126) U/L Total Protein 7.2 (6.3-8.2) g/dL Albumin 4.4 (3.5-5.0) g/dL Amylase 55 (30-110) U/L Lipase 115 (23-300) U/L Urine Color Dark Yellow Urine Appearance Clear (Clear) Urine pH 5.5 (5.0-8.0) Ur Specific [place] 1.019 (1.001-1.035) Urine Protein Negative (Negative) Urine Glucose (UA) Negative (Negative) Urine Ketones Negative (Negative) Urine Blood Negative (Negative) Urine Nitrite Negative (Negative) Urine Bilirubin Negative (Negative) Urine Urobilinogen <2.0 (<2.0) mg/dL Ur Leukocyte Esterase Negative (Negative) 05/29/17 05/29/17 Range/Units 12:53 12:53 WBC (3.8-10.6) k/uL RBC (4.30-5.90) m/uL Hgb (13.0-17.5) gm/dL Hct (39.0-53.0) % MCV (80.0-100.0) fL MCH (25.0-35.0) pg MCHC (31.0-37.0) g/dL RDW (11.5-15.5) % Plt Count (150-450) k/uL Neutrophils % % Lymphocytes % % Monocytes % % Eosinophils % % Basophils % % Neutrophils # (1.3-7.7) k/uL Lymphocytes # (1.0-4.8) k/uL Monocytes # (0-1.0) k/uL Eosinophils # (0-0.7) k/uL Basophils # (0-0.2) k/uL PT 24.9 H (9.0-12.0) sec INR 2.8 H (<1.2) APTT 31.1 H (22.0-30.0) sec Sodium (137-145) mmol/L Potassium (3.5-5.1) mmol/L Chloride (98-107) mmol/L Carbon Dioxide (22-30) mmol/L Anion Gap mmol/L BUN (9-20) mg/dL Creatinine (0.66-1.25) mg/dL Est GFR (MDRD) Af Amer (>60 ml/min/1.73 sqM) Est GFR (MDRD) Non-Af (>60 ml/min/1.73 sqM) Glucose (74-99) mg/dL Plasma Lactic Acid Shay 1.0 (0.7-2.0) mmol/L Calcium (8.4-10.2) mg/dL Total Bilirubin (0.2-1.3) mg/dL AST (17-59) U/L ALT (21-72) U/L Alkaline Phosphatase (38-126) U/L Total Protein (6.3-8.2) g/dL Albumin (3.5-5.0) g/dL Amylase (30-110) U/L Lipase (23-300) U/L Urine Color Urine Appearance (Clear) Urine pH (5.0-8.0) Ur Specific [place] (1.001-1.035) Urine Protein (Negative) Urine Glucose (UA) (Negative) Urine Ketones (Negative) Urine Blood (Negative) Urine Nitrite (Negative) Urine Bilirubin (Negative) Urine Urobilinogen (<2.0) mg/dL Ur Leukocyte Esterase (Negative) Disposition Clinical Impression: Abdominal pain, Hypertension, Nausea and vomiting, History of melanoma, Nephrolithiasis Disposition: HOME SELF-CARE Condition: Good Instructions: Abdominal Pain (ED), Acute Nausea and Vomiting (ED), Hypertension (ED) Additional Instructions: Please drink extra fluids for the next 3 days. Prescriptions: Dicyclomine [Bentyl] 20 mg PO QID PRN #20 tablet PRN Reason: Pain Ondansetron [Zofran ODT] 8 mg PO Q8HR PRN #12 tab PRN Reason: Nausea Referrals: Olman Gonzales MD [Primary Care Provider] - 1-2 days Time of Disposition: 14:50
[2017-05-29 15:07] VITALS: BP 130/85; PULSE 80; RESP 16; TEMP 97.5
== END 2017-05-29 15:11 | disposition home or self-care (01) ==
LOC: EC 10:54
DX: N20.0 Calculus of kidney (principal); I10 Essential (primary) hypertension; D72.829 Elevated white blood cell count, unspecified; C43.71 Malignant melanoma of right lower limb, including hip; E78.5 Hyperlipidemia, unspecified; F32.9 Major depressive disorder, single episode, unspecified; G89.29 Other chronic pain; G47.30 Sleep apnea, unspecified; Z87.891 Personal history of nicotine dependence; Z79.01 Long term (current) use of anticoagulants; Z79.899 Other long term (current) drug therapy; Z86.14 Personal history of Methicillin resistant Staphylococcus aureus infection; Z86.718 Personal history of other venous thrombosis and embolism; Z98.890 Other specified postprocedural states; Z99.89 Dependence on other enabling machines and devices
CPT/HCPCS: 99284; 96374; 96375 ×2; 36415; 80053; 82150; 83605; 83690; 85025; 85610; 85730; 81003; 87040; 74177; J1170; J2405; Q9967; C9113

== ENCOUNTER → 2017-08-10 | Outpatient (CLI) | payer MEDICARE ==
[2017-08-10 12:54] LABS: INR 1.2 (<1.2); Prothrombin Time 11.1 sec (9.0-12.0)
== END | disposition home or self-care (01) ==
LOC: LABWHC1 12:08
PROVIDERS: ATTEND Psychiatry & Neurology Neurology
DX: Z51.81 Encounter for therapeutic drug level monitoring (principal); Z79.01 Long term (current) use of anticoagulants
CPT/HCPCS: 36415; 85610

== ENCOUNTER → 2017-09-29 | Outpatient (CLI) | payer MEDICARE ==
--- NOTE | 2017-09-29 13:01 | US ---
EXAMINATION TYPE: US venous doppler duplex LE DATE OF EXAM: 09/29/2017 12:50 PM COMPARISON: US CLINICAL HISTORY: R60.0 Localized edema. SIDE PERFORMED: Bilateral TECHNIQUE: The lower extremity deep venous system is examined utilizing real time linear array sonog kacey with graded compression, doppler sonography and color-flow sonography. VESSELS IMAGED: External Iliac Vein (EIV) Common Femoral Vein Deep Femoral Vein Greater Saphenous Vein * Femoral Vein Popliteal Vein Small Saphenous Vein * Proximal Calf Veins (* superficial vessels) Grayscale, color doppler, spectral doppler imaging performed of the deep veins of the lower extremiti es. There is normal flow, compressibility, vascular waveforms. Right Leg: Negative for DVT Left Leg: Negative for DVT IMPRESSION: No sonographic evidence of deep venous arthrosis within the bilateral lower extremities.
[2017-09-29 13:32] LABS: INR 4.1 (<1.2); Prothrombin Time 36.5 sec (9.0-12.0)
== END ==
LOC: RADUSWWP 11:59
PROVIDERS: ATTEND Family Medicine
DX: R60.0 Localized edema (principal); D68.59 Other primary thrombophilia
CPT/HCPCS: 85610; 93970

== ENCOUNTER 2018-01-18 21:01 | Emergency (ER) | payer MEDICARE ==
[2018-01-18 21:39] VITALS: RESP 18
[2018-01-18] MEDS ORDERED: KETOROLAC 30 MG/ML 1 ML VIAL IM STA (23:29)
--- NOTE | 2018-01-18 23:45 | ED ---
General Adult HPI - General Chief complaint: Extremity Injury, Lower Stated complaint: leg pain Time Seen by Provider: 01/18/18 22:40 Source: patient, RN notes reviewed Mode of arrival: ambulatory Limitations: no limitations - History of Present Illness Initial comments: 52-year-old male presents to the emergency department for a chief complaint of low back pain. Patient states he has chronic low back pain but was running 2 days ago when looking for his grandson and injured his back. Denies any other injuries or blunt trauma. Patient states he has tingling in the thigh of the left lower extremity as well as shooting pain. Patient states he has had these symptoms for 4 months but they are somewhat worsened in the past 2 days after running. Patient denies any bladder or bowel changes. Patient denies any numbness in the groin or buttock. Patient denies any fevers or chills at home. Patient denies any IV drug abuse or chronic steroid use. Patient has a history of melanoma. Patient states he is on a fentanyl patch at home for chronic back pain. He states he is on a waiting list for a lumbar spine stimulator. Patient states he contacted Dr. Hawkins today because of the pain at [address] Hawkins called him back at 8 PM and told him to come to the emergency department for evaluation. Patient has no other complaints at this time including shortness of breath, chest pain, abdominal pain, nausea or vomiting, headache, or visual changes. - Related Data Home Medications Medication Instructions Recorded Confirmed Gabapentin [Neurontin] 300 mg PO TID 07/29/14 01/18/18 Melatonin 10 mg PO HS 07/29/14 01/18/18 Simvastatin [Zocor] 20 mg PO DAILY 07/29/14 01/18/18 risperiDONE [RisperDAL] 0.5 mg PO HS 07/29/14 01/18/18 Ascorbic Acid [Vitamin C] 2,000 mg PO DAILY 11/13/15 01/18/18 Citalopram Hydrobromide [CeleXA] 10 mg PO DAILY 11/13/15 01/18/18 Vitamin B Complex 1 cap PO BID 11/13/15 01/18/18 fentaNYL 75MCG/HR PATCH [Duragesic 1 patch TRANSDERM Q72H 11/13/15 01/18/18 75MCG/HR] Atenolol 100 mg PO QAM 12/07/15 01/18/18 Lisinopril [Prinivil] 10 mg PO HS 12/20/16 01/18/18 Meclizine [Antivert] 25 mg PO TID 12/20/16 01/18/18 Warfarin [Coumadin] 2.5 mg PO MOTUWETHFR 02/16/17 01/18/18 Cholecalciferol [Vitamin D3] 1,000 unit PO DAILY 05/29/17 01/18/18 traZODone HCL 150 mg PO HS 05/29/17 01/18/18 Vitamin A 8,000 unit PO DAILY 01/18/18 01/18/18 Allergies Allergy/AdvReac Type Severity Reaction Status Date / Time No Known Allergies Allergy Verified 01/18/18 22:57 Review of Systems ROS Statement: Those systems with pertinent positive or pertinent negative responses have been documented in the HPI. ROS Other: All systems not noted in ROS Statement are negative. 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., right ziegler CA STAGE IV MELANOMA REMOVED), lymph node surgery RT LEG, PAST PAIN CLIINC PROCEDURES, RT ARM PICC LINE ,SINCE REMOVED, skin CA removed BILAT shoulders, EGD, RECENT SUN SPOTS REMOVED FROM FACE Past Anesthesia/Blood Transfusion Reactions: No Reported Reaction Past Psychological History: Depression Smoking Status: Former smoker Past Alcohol Use History: None Reported Past Drug Use History: Marijuana - Past Family History Mother Family Medical History: Hypertension Father Family Medical History: Diabetes Mellitus General Exam Limitations: no limitations General appearance: alert, in no apparent distress Head exam: Present: atraumatic, normocephalic, normal inspection Eye exam: Present: normal appearance, PERRL, EOMI. Absent: scleral icterus, conjunctival injection, periorbital swelling, periorbital tenderness ENT exam: Present: normal exam, mucous membranes moist Neck exam: Present: normal inspection, full ROM. Absent: tenderness, meningismus, lymphadenopathy Respiratory exam: Present: normal lung sounds bilaterally. Absent: respiratory distress, wheezes, rales, rhonchi, stridor Cardiovascular Exam: Present: regular rate, normal rhythm, normal heart sounds. Absent: systolic murmur, diastolic murmur, rubs, gallop, clicks GI/Abdominal exam: Present: soft, normal bowel sounds. Absent: distended, tenderness, guarding, rebound, rigid Extremities exam: Present: full ROM (Patient has full range motion of lower extremities), normal capillary refill (Capillary refill less than 2 seconds and pedal pulses 2+ and lower extremities bilaterally), other (Sensation intact in lower extremities bilaterally including left thigh) Back exam: Present: normal inspection, paraspinal tenderness (Right-sided paraspinal tenderness), vertebral tenderness (Mild lumbar spine tenderness.). Absent: full ROM (Patient has 60 flexion of the lumbar spine and 10 extension. Patient able to rotate bilaterally.), CVA tenderness (R), CVA tenderness (L) Neurological exam: Present: alert, oriented X3, CN II-XII intact Psychiatric exam: Present: normal affect, normal mood Course Vital Signs 01/18/18 01/18/18 21:36 23:52 Temperature 98.7 F 98.1 F Pulse Rate 83 86 Respiratory 18 18 Rate Blood Pressure 151/81 144/79 O2 Sat by Pulse 98 98 Oximetry Medical Decision Making - Medical Decision Making 52-year-old male presents to the emergency department for a chief complaint of chronic neck pain exacerbated in the past 2 days. Patient states he now has tingling in the left thigh as well as sharp shooting pain in the left eye. Patient denies bladder or bowel changes. Patient denies saddle anesthesia. Full range of motion in lower extremities bilaterally. No weakness and patient is able to ambulate. 60 flexion of the lumbar spine is achieved and 10 extension of the lumbar spine is achieved. Patient has mild lumbar spine tenderness and right-sided paraspinal tenderness. Positive straight leg raise on left lower extremity. Neurovascular intact in lower extremities bilaterally. No neuro deficits noted. Discussed the patient that he could order a CAT scan however this test does have high radiation. Discussed with patient that MRI is the test of choice for his symptoms which is not available through the emergency department. Patient states he has an appointment with Dr. Gonzales tomorrow and can have him prescribe an MRI. He was also given a shot of Toradol here in the emergency department which he states generally helps for at least a few hours. He will continue his pain regimen at home. He will follow up with Dr. Gonzales tomorrow as well as Dr. Hawkins. Discussed returning if he has any worsening symptoms, bladder or bowel changes, numbness of the groin or buttock. Disposition Clinical Impression: Chronic back pain Disposition: HOME SELF-CARE Condition: Good Instructions: Chronic Back Pain (ED) Additional Instructions: Please continue pain regimen at home. Please follow-up with Dr. Gonzales tomorrow for possible MRI. Please follow-up with Dr. Hawkins or Dr. Kurtz as well. If you have worsening symptoms, weakness in the lower extremities, bladder or bowel changes, or numbness of the groin or buttocks return to the emergency department immediately. Is patient prescribed a controlled substance at d/c from ED?: No Referrals: Olman Gonzales MD [Primary Care Provider] - 1-2 days Time of Disposition: 23:45
[2018-01-18 23:53] VITALS: BP 144/79; PULSE 86; TEMP 98.1
== END 2018-01-18 23:52 | disposition home or self-care (01) ==
LOC: EC 21:01
DX: G89.29 Other chronic pain (principal); M54.5 Low back pain; M54.2 Cervicalgia; H57.12 Ocular pain, left eye; R20.2 Paresthesia of skin; E78.5 Hyperlipidemia, unspecified; I10 Essential (primary) hypertension; F32.9 Major depressive disorder, single episode, unspecified; G47.30 Sleep apnea, unspecified; Z99.89 Dependence on other enabling machines and devices; Z86.718 Personal history of other venous thrombosis and embolism; Z85.820 Personal history of malignant melanoma of skin; Z86.14 Personal history of Methicillin resistant Staphylococcus aureus infection; Z87.891 Personal history of nicotine dependence; Z79.891 Long term (current) use of opiate analgesic; Z79.01 Long term (current) use of anticoagulants; Z79.899 Other long term (current) drug therapy
CPT/HCPCS: 99283; 96372; J1885

== ENCOUNTER → 2018-02-07 | Outpatient (CLI) | payer MEDICARE ==
--- NOTE | 2018-02-07 09:09 | MR ---
EXAMINATION TYPE: MR lumbar spine wo/w con DATE OF EXAM: 02/07/2018 COMPARISON: MRI lumbar spine February 21, 2017. CT abdomen and pelvis May 29, 2017 HISTORY: Lumbosacral intervertebral disc disorder per order. Bad low back pain since 2011 causing cherelle n into both lower extremities per patient. TECHNIQUE: Multiplanar, multisequence images of the lumbar spine is performed without and with IV contrast, util izing 11.5 mL intravenous Gadavist FINDINGS: Sagittal images of the lumbar spine show vertebral body heights and alignment to appear sat isfactory. There is disc desiccation L1-L2, L2-L3, and L4-L5 levels redemonstrated. Increased signal posteriorly consistent with annular tear L2-L3 and L4-L5 levels is again seen. No new large disc ronak iations are seen on sagittal images. The conus medullaris remains normal in position and signal endin g at T12-L1 disc space level. There is mild to moderate anterior spurring with heterogeneous endplate changes L1-L2 level redemonstrated. There is nonspecific enhancing lumbosacral nerve root without manzo spicious clumping. Axial images show at T12-L1 level to remain within normal limits. Axial images at L1-L2 level redemonstrate mild broad disc bulge minimally effacing anterior thecal sa c, bilateral neural foramina are patent. No significant change from prior Axial images at the L2-L3 level show broad-based left paracentral disc protrusion minimally effacing anterior thecal sac, bilateral neural foramina are patent. No significant change from prior. Axial images at L3-L4 level redemonstrate mild to moderate facet degenerative changes inferiorly but spinal canal is preserved and bilateral neural foramina are patent. Axial images at the L4-L5 level shows central disc protrusion but spinal canal is preserved. There is moderate facet degenerative changes and ligamentum flavum hypertrophy bilaterally. There is persiste nt moderate bilateral neural foraminal narrowing, right greater than left. No significant change from prior. Axial images at the L5-S1 level redemonstrate moderate facet degenerative changes bilaterally. There is asymmetric mild right-sided neural foraminal narrowing. Left-sided neural foramen is patent. No si gnificant change from prior. No suspicious new retroperitoneal findings are seen. IMPRESSION: Multilevel degenerative changes in lumbar spine as detailed above, no significant change or progression from prior MRI. Most prominent facet arthropathy noted in the lower lumbar levels.
== END | disposition home or self-care (01) ==
LOC: RADMRIMAIN 07:40
PROVIDERS: ATTEND Physician Assistant
DX: M99.73 Connective tissue and disc stenosis of intervertebral foramina of lumbar region (principal); M51.26 Other intervertebral disc displacement, lumbar region; M47.817 Spondylosis without myelopathy or radiculopathy, lumbosacral region; M46.96 Unspecified inflammatory spondylopathy, lumbar region
CPT/HCPCS: 72158; A9581

== ENCOUNTER 2018-12-31 16:31 | Emergency (ER) | payer BC, MEDICARE ==
[2018-12-31 16:52] VITALS: RESP 18
--- NOTE | 2018-12-31 17:33 | ED ---
General Adult HPI - General Chief complaint: Abdominal Pain Stated complaint: abd pain Time Seen by Provider: 12/31/18 17:20 Source: patient Mode of arrival: ambulatory Limitations: no limitations - History of Present Illness Initial comments: Patient is a 53-year-old male presenting to emergency Department with chief complaint of a hernia. Patient reports intermittent symptoms for the past few months but it has greatly increased over the past 7 days. Patient reports the pain is exacerbated when walking, coughing and standing up from a sitting pos ition. Patient reports the pain is located in the right lower quadrant region near McBurney point. Patient denies nausea vomiting diarrhea. Patient states the pain does not correlate to food intake. Patient denies any fever, chest pain, chest tightness shortness of breath. Patient denies testicular pain or swelling. Patient denies urinary or bowel symptoms. - Related Data Home Medications Medication Instructions Recorded Confirmed Gabapentin [Neurontin] 300 mg PO TID 07/29/14 01/18/18 Melatonin 10 mg PO HS 07/29/14 01/18/18 Simvastatin [Zocor] 20 mg PO DAILY 07/29/14 01/18/18 risperiDONE [RisperDAL] 0.5 mg PO HS 07/29/14 01/18/18 Ascorbic Acid [Vitamin C] 2,000 mg PO DAILY 11/13/15 01/18/18 Citalopram Hydrobromide [CeleXA] 10 mg PO DAILY 11/13/15 01/18/18 Vitamin B Complex 1 cap PO BID 11/13/15 01/18/18 fentaNYL 75MCG/HR PATCH [Duragesic 1 patch TRANSDERM Q72H 11/13/15 01/18/18 75MCG/HR] Atenolol 100 mg PO QAM 12/07/15 01/18/18 Lisinopril [Prinivil] 10 mg PO HS 12/20/16 01/18/18 Meclizine [Antivert] 25 mg PO TID 12/20/16 01/18/18 Warfarin [Coumadin] 2.5 mg PO MOTUWETHFR 02/16/17 01/18/18 Cholecalciferol [Vitamin D3] 1,000 unit PO DAILY 05/29/17 01/18/18 traZODone HCL 150 mg PO HS 05/29/17 01/18/18 Vitamin A 8,000 unit PO DAILY 01/18/18 01/18/18 Allergies Allergy/AdvReac Type Severity Reaction Status Date / Time No Known Allergies Allergy Verified 12/31/18 16:52 Review of Systems ROS Statement: Those systems with pertinent positive or pertinent negative responses have been documented in the HPI. ROS Other: All systems not noted in ROS Statement are negative. Past Medical History Past Medical History: Cancer, Deep Vein Thrombosis (DVT), GERD/Reflux, Hype rlipidemia, Hypertension, Sleep Apnea/CPAP/BIPAP Additional Past Medical History / Comment(s): melanoma stage IV RT LEG, PAST JAMES WELDING INJ TO LT HAND , USES A CPAP MACHINE, HIATAL HERNIA ,DDD, CHRONIC BACK PAIN, MIGRAINES, DVT RUE History of Any Multi-Drug Resistant Organisms: MRSA Date of last positivie culture/infection: 2004 MDRO Source:: left index finger Past Surgical History: Hernia Repair Additional Past Surgical History / Comment(s): left hand SX TO REPAIR INJURY FROM FAMILY [employer]ICE [employer]ISTANT., right ziegler CA STAGE IV MELANOMA REMOVED), lymph node surgery RT LEG, PAST PAIN CLIINC PROCEDURES, RT ARM PICC LINE ,SINCE REMOVED, skin CA removed BILAT shoulders, EGD, RECENT SUN SPOTS REMOVED FROM FACE Past Anesthesia/Blood Transfusion Reactions: No Reported Reaction Past Psychological History: No Psychological Hx Reported, Depression Smoking Status: Former smoker Past Alcohol Use History: None Reported, Rare Past Drug Use History: Marijuana - Past Family History Mother Family Medical History: Hypertension Father Family Medical History: Diabetes Mellitus General Exam Limitations: no limitations General appearance: alert, in no apparent distress Head exam: Present: atraumatic Eye exam: Present: normal appearance, PERRL, EOMI Pupils: Present: normal accommodation ENT exam: Present: normal exam, normal oropharynx, mucous membranes moist, TM's normal bilaterally, normal external ear exam Neck exam: Present: normal inspection, full ROM Respiratory exam: Present: normal lung sounds bilaterally Cardiovascular Exam: Present: regular rate, normal rhythm, normal heart sounds GI/Abdominal exam: Present: soft, tenderness (McBurney point tenderness with palpation.), normal bowel sounds, other (Positive psoas, positive obturator, positive McBurney point tenderness. Negative Duckworth sign.). Absent: guarding, rebound Extremities exam: Present: normal inspection, full ROM Back exam: Present: normal inspection, full ROM. Absent: CVA tenderness (R), CVA tenderness (L) Neurological exam: Present: alert, oriented X3 Psychiatric exam: Present: normal affect, normal mood Skin exam: Present: warm, intact, normal color Course Vital Signs 12/31/18 12/31/18 16:49 19:59 Temperature 99.2 F 99.0 F Pulse Rate 86 66 Respiratory 18 18 Rate Blood Pressure 107/75 128/76 O2 Sat by Pulse 95 94 L Oximetry Medical Decision Making - Medical Decision Making Patient is a 53-year-old male presenting to emergency Department with a chief complaint of a hernia. Based on physical examination I have low suspicion for a ventral hernia. No palpable masses on abdomen are noted. Laboratory results indicate mild leukocytosis. Ultrasound of the right lower quadrant is negative for hernia but appendix is not visualized. CT of abdomen and pelvis with contrast is negative for acute pathologies but does indicate an increased size of a renal calculi in the right renal pelvis compared to the last exam. Patient's vitals are stable. Patient given morphine. Patient goes to pain management due to back problems. At this time I can rule out a hernia and appendicitis. Vitals are stable. Patient advised to follow-up with primary care for further management. Strict return parameters were thoroughly discussed with patient was understanding and agreeable. Case discussed with physician. - Lab Data Result diagrams: 12/31/18 17:54 12/31/18 17:54 Lab Results 12/31/18 12/31/18 Range/Units 17:54 17:54 WBC 11.3 H (3.8-10.6) k/uL RBC 4.94 (4.30-5.90) m/uL Hgb 15.6 (13.0-17.5) gm/dL Hct 44.5 (39.0-53.0) % MCV 90.1 (80.0-100.0) fL MCH 31.5 (25.0-35.0) pg MCHC 34.9 (31.0-37.0) g/dL RDW 14.8 (11.5-15.5) % Plt Count 277 (150-450) k/uL Neutrophils % 65 % Lymphocytes % 25 % Monocytes % 5 % Eosinophils % 3 % Basophils % 1 % Neutrophils # 7.3 (1.3-7.7) k/uL Lymphocytes # 2.9 (1.0-4.8) k/uL Monocytes # 0.5 (0-1.0) k/uL Eosinophils # 0.3 (0-0.7) k/uL Basophils # 0.1 (0-0.2) k/uL Sodium 143 (137-145) mmol/L Potassium 4.4 (3.5-5.1) mmol/L Chloride 103 (98-107) mmol/L Carbon Dioxide 27 (22-30) mmol/L Anion Gap 13 mmol/L BUN 17 (9-20) mg/dL Creatinine 1.35 H (0.66-1.25) mg/dL Est GFR (CKD-EPI)AfAm 70 (>60 ml/min/1.73 sqM) Est GFR (CKD-EPI)NonAf 60 (>60 ml/min/1.73 sqM) Glucose 103 H (74-99) mg/dL Calcium 9.9 (8.4-10.2) mg/dL Total Bilirubin 0.9 (0.2-1.3) mg/dL AST 34 (17-59) U/L ALT 28 (21-72) U/L Alkaline Phosphatase 97 (38-126) U/L Total Protein 8.6 H (6.3-8.2) g/dL Albumin 5.0 (3.5-5.0) g/dL Disposition Clinical Impression: Abdominal pain in male Disposition: HOME SELF-CARE Condition: Stable Instructions (If sedation given, give patient instructions): Abdominal Pain (ED) Additional Instructions: Please follow up with primary care. Alternate between Tylenol and ibuprofen for pain control. Please return to emergency department if symptoms worsen. Is patient prescribed a controlled substance at d/c from ED?: No Referrals: Olman Gonzales MD [Primary Care Provider] - 1-2 days Time of Disposition: 19:49
[2018-12-31 18:01] LABS: Basophils # (A) 0.1 k/uL (0-0.2); Basophils % (A) 1 %; Eosinophils # (A) 0.3 k/uL (0-0.7); Eosinophils % (A) 3 %; HCT 44.5 % (39.0-53.0); HGB 15.6 gm/dL (13.0-17.5); Lymphocytes # (A) 2.9 k/uL (1.0-4.8); Lymphocytes % (A) 25 %; MCH 31.5 pg (25.0-35.0); MCHC 34.9 g/dL (31.0-37.0); MCV 90.1 fL (80.0-100.0); Mean Platelet Volume 7.8; Monocytes # (A) 0.5 k/uL (0-1.0); Monocytes % (A) 5 %; Neutrophils # (A) 7.3 k/uL (1.3-7.7); Neutrophils % (A) 65 %; Platelet Count 277 k/uL (150-450); RBC 4.94 m/uL (4.30-5.90); RDW 14.8 % (11.5-15.5); WBC 11.3 k/uL (3.8-10.6)
[2018-12-31 18:27] LABS: Calcium 9.9 mg/dL (8.4-10.2); Potassium 4.4 mmol/L (3.5-5.1); Total Bilirubin 0.9 mg/dL (0.2-1.3); Total Protein 8.6 g/dL (6.3-8.2)
--- NOTE | 2018-12-31 18:27 | US ---
EXAMINATION TYPE: US abdomen limited DATE OF EXAM: 12/31/2018 COMPARISON: CT 2018 CLINICAL HISTORY: Pain. RLQ pain, the ER physician wanted area of pain assessed for appy and hernia Scanned over RLQ, area of pain, with and without valsalva. There is no ultrasound evidence for hernia . Also scanned using graded compression, the appendix is not visible. While scanning with graded comp ression a cystic structure was seen. This structure measures 5.3 x 5.0 x 4.9 cm and is just to the ri ght of the bladder. This is just inferior to patient's area of pain, question etiology. No other abno rmality noted. IMPRESSION: Appendix not seen. No sign of thickened. Cystic fluid collection adjacent to the urinary bladder of uncertain significance. This could be bladder diverticulum. No free fluid.
[2018-12-31] MEDS ORDERED: MORPHINE SULFATE 4 MG/ML SYRINGE IM STA (19:03)
[2018-12-31] MEDS ORDERED: MORPHINE SULFATE 4 MG/ML SYRINGE IVP STA (19:12)
--- NOTE | 2018-12-31 19:21 | CT ---
EXAMINATION TYPE: CT abdomen pelvis w con DATE OF EXAM: 12/31/2018 COMPARISON: 05/29/2017 HISTORY: Right sided abdominal pain. CT DLP: 1335.5 mGycm Automated exposure control for dose reduction was used. TECHNIQUE: Helical acquisition of images was performed from the lung bases through the pelvis. CONTRAST: Performed without Oral Contrast and with IV Contrast, patient injected with 80 mL of Isovue M300. FINDINGS: Lung bases are clear of consolidation. There is no pleural effusion. Heart appears normal. There is n eural stimulator in the lower thoracic spine. Liver spleen stomach pancreas gallbladder appear normal. Bile ducts are not dilated. There is no adre nal mass. Kidneys show satisfactory contrast opacification. There is no hydronephrosis. There is no r etroperitoneal adenopathy. Ureters are not dilated. Bladder distends smoothly. There is 8 mm irregula r calculus lower pole right kidney slightly increased in size compared to old exam. There is penis implant surgery. There is small left inguinal hernia that contains fat. There is no fr ee fluid in the pelvis. Appendix appears normal. There is no evidence of pelvic mass. There is no mes enteric edema. There is no ascites or free air. Lumbar vertebra have normal spacing and alignment. There is no compression fracture. I see no bony de structive process. Bony pelvis is intact. IMPRESSION: NORMAL APPENDIX. RIGHT RENAL CALCULUS SLIGHTLY INCREASED IN SIZE COMPARED TO OLD EXAM. NO OBSTRUCTION .
[2018-12-31 20:00] VITALS: BP 128/76; PULSE 66; TEMP 99
== END 2018-12-31 20:00 | disposition home or self-care (01) ==
LOC: EC 16:31
DX: N20.0 Calculus of kidney (principal); D72.829 Elevated white blood cell count, unspecified; E78.5 Hyperlipidemia, unspecified; I10 Essential (primary) hypertension; F32.9 Major depressive disorder, single episode, unspecified; G47.30 Sleep apnea, unspecified; Z99.89 Dependence on other enabling machines and devices; Z87.19 Personal history of other diseases of the digestive system; Z86.14 Personal history of Methicillin resistant Staphylococcus aureus infection; Z98.890 Other specified postprocedural states; Z87.891 Personal history of nicotine dependence; Z85.820 Personal history of malignant melanoma of skin; Z86.718 Personal history of other venous thrombosis and embolism; Z79.891 Long term (current) use of opiate analgesic; Z79.01 Long term (current) use of anticoagulants; Z79.899 Other long term (current) drug therapy
CPT/HCPCS: 36415; 80053; 85025; 76705; 74177; 99284; 96374; J2270; Q9967

== ENCOUNTER → 2019-03-05 | Outpatient (CLI) | payer BC ==
--- NOTE | 2019-03-05 13:02 | PN ---
PROGRESS NOTE Hamilton is doing well. He is coming in for a followup. His last evaluation was in April 2016. He is completely out of his supplies. He was using his CPAP every night. Based on the compliance report, he has been averaging more than 6 hours of CPAP use per night at a pressure of 8. Leak is 44 L/minute as the AirFit P10 mask that he has has been extremely loose especially at the level of his head gear. His AHI is down to 1. Note that the patient has moderate severe disease with an AHI of 28, at baseline. He is coming in for routine check. He wants all of his supplies to be renewed. His weight has been stable. No significant weight gain. No major hypersomnolence or sleepiness during the day. He has no other new complaints. No new onset comorbidities. He is going to bed around 10 o'clock. Waking up at 7 a.m. in the morning. He is drinking 1 to 3 cups of caffeinated beverages. No new onset of medical problems and comorbidities for now. MEDICATION LIST: Medication list includes meclizine 25 mg 3 times a day, warfarin, risperidone 0.5 mg p.o. q. day, Flexeril 10 mg p.o. q. day, atenolol 100 mg p.o. q day, Zocor 20 mg p.o. q. day, lisinopril 10 mg p.o. q. day, 10 mg p.o. twice a day, trazodone 150 mg p.o. q. day, melatonin, vitamin A, B, C and D. REVIEW OF SYSTEMS: Fourteen-point review of system was done. Positive findings are mentioned in history of present illness. No snoring while on CPAP therapy. He would snore if he quit the treatment and he would also stop breathing. No nocturia. No grinding of the teeth. No sleepwalking. No panic attacks. No palpitation. No heartburn. He has some chronic anxiety. No angina. No palpitations. No shortness of breath. Especially overnight no significant heartburn. PHYSICAL EXAMINATION: His vitals: Blood pressure is 128/89, pulse 77, respirations 18, temperature 98.1, saturation 97% on room air, weight 251, BMI 37.0. GENERAL APPEARANCE: Calm and comfortable. HEAD: Atraumatic, normocephalic. NECK: Supple. No JVD. No goiter or neck mass. LUNGS: Diminished otherwise clear. HEART: Sounds are regular rate and rhythm. Normal S1, S2. No S3, S4. No murmurs. ABDOMEN: Soft, nontender. No organomegaly. EXTREMITIES: No edema. No cyanosis or clubbing. IMPRESSION: 1. Symptomatic obstructive sleep apnea with an AHI of 28, currently on CPAP pressure of 8. 2. Obesity with a stable weight. 3. Previous history of deep venous thrombosis on warfarin. 4. Hypothyroidism. 5. History of melanoma. 6. Hyperlipidemia. 7. Hypertension. PLAN: 1. Continue CPAP therapy at the same level of pressure. 2. Switch this patient's mask to an AirFit P30i medium-sized nose pillows. 3. Offered him the filters. 4. Offer the patient the smart start feature. 5. Encourage weight loss and needs to go back to the gym. 6. See me back in the office in a year's time and follow up earlier if needed. MMODL / IJN: [id number] / RUDY
== END | disposition home or self-care (01) ==
LOC: SLEEP 11:01
PROVIDERS: ATTEND Internal Medicine Critical Care Medicine
DX: G47.33 Obstructive sleep apnea (adult) (pediatric) (principal); E66.9 Obesity, unspecified; E03.9 Hypothyroidism, unspecified; E78.5 Hyperlipidemia, unspecified; I10 Essential (primary) hypertension; Z86.718 Personal history of other venous thrombosis and embolism; Z99.89 Dependence on other enabling machines and devices; Z68.37 Body mass index [BMI] 37.0-37.9, adult; Z79.01 Long term (current) use of anticoagulants; Z79.899 Other long term (current) drug therapy
CPT/HCPCS: 99211

== ENCOUNTER → 2019-03-28 | Outpatient (CLI) | payer BC ==
--- NOTE | 2019-03-28 11:46 | XR ---
EXAMINATION TYPE: XR KUB DATE OF EXAM: 03/28/2019 CLINICAL DATA: 53-year-old male N20.0, hematuria., [facility] COMPARISON: 05/14/2010 FINDINGS: Left-sided generator device projects at the left iliac crest. Spinal stimulator reading ext ending up to the lower thoracic spinal canal. No dilated small bowel loops. Scattered [id number] stool. Nonobstructive bowel gas pattern. Some rounded, balloon density right side of the pelvis could represent a reservoir. Some rounded densities peripherally in the left mid abdomen likely bowel content. No definite suspici ous calcification radiograph the appreciated with particular attention to the calculi seen at the rig ht lower pole on CT of 12/31/2018. IMPRESSION: 1. No definite suspicious calcifications appreciated radiographically. Note that the CT of 12/31/2018 demonstrated a 7 mm calculus at the right kidney lower pole. 2. Nonobstructive bowel gas pattern. [id number] stool. 3. Rounded densities in the left mid abdomen suspected to represent bowel content.
== END | disposition home or self-care (01) ==
LOC: RADXRMAIN 08:35
PROVIDERS: ATTEND Urology
DX: N20.0 Calculus of kidney (principal); R14.3 Flatulence
CPT/HCPCS: 74018

== ENCOUNTER → 2019-04-19 | Outpatient (CLI) | payer BC ==
--- NOTE | 2019-04-19 09:13 | XR ---
EXAMINATION TYPE: XR KUB DATE OF EXAM: 04/19/2019 8:47 AM CLINICAL HISTORY: Right-sided kidney stones with lithotripsy 4 days ago. TECHNIQUE: Two Upright KUB images of the abdomen are obtained. COMPARISON: CT December 31, 2018. Abdominal x-ray March 28, 2019.. FINDINGS: Punctate densities overlie right kidney are favored more likely bowel over tiny renal calcu li correlating with prior studies. Largest calculus lower pole right kidney coronal image 64 measurin g 7 mm is not clearly seen on current study or prior x-ray. Overall nonobstructive bowel gas pattern. Spinal stimulator is present. Penile prosthesis is noted. IMPRESSION: As above.
== END | disposition home or self-care (01) ==
LOC: RADXRMAIN 08:28
PROVIDERS: ATTEND Urology
DX: N20.0 Calculus of kidney (principal); Z96.0 Presence of urogenital implants
CPT/HCPCS: 74018

== ENCOUNTER → 2019-09-25 | Outpatient (CLI) | payer BC ==
--- NOTE | 2019-09-25 12:00 | ECHOF ---
Referral Reason:I10 essential hypertension MEASUREMENTS -------- HEIGHT: 175.3 cm WEIGHT: 113.4 kg BP: RVIDd: 3.4 cm (< 3.3) IVSd: 1.3 cm (0.6 - 1.1) LVIDd: 2.8 cm (3.9 - 5.3) LVPWd: 1.3 cm (0.6 - 1.1) IVSs: 2.0 cm LVIDs: 1.8 cm LVPWs: 1.8 cm Ao Diam: 3.1 cm (2.0 - 3.7) AV Cusp: 2.2 cm (1.5 - 2.6) LA Diam: 3.4 cm (2.7 - 3.8) MV EXCURSION: 14.577 mm (> 18.000) MV EF SLOPE: 79 mm/s (70 - 150) EPSS: 0.6 cm MV E Julio: 0.47 m/s MV DecT: 142 ms MV A Julio: 0.63 m/s MV E/A Ratio: 0.75 RAP: 5.00 mmHg RVSP: 18.36 mmHg FINDINGS -------- Sinus rhythm. This was a technically difficult study with suboptimal views. The left ventricular size is normal. There is mild concentric left ventricular hypertrophy. Overa ll left ventricular systolic function is normal with, an EF between 55 - 60 %. The right ventricle is mildly enlarged. The left atrial size is normal. The right atrial size is normal. Unable to visualize septum. The aortic valve is trileaflet and appears structurally normal. The mitral valve is normal. There is trace mitral regurgitation. The tricuspid valve appears structurally normal. Trace tricuspid regurgitation present. Right irene tricular systolic pressure is normal at < 35 mmHg. The pulmonic valve was not well visualized. The aortic root size is normal. IVC Not well visulized. There is no pericardial effusion. CONCLUSIONS -------- 1. Sinus rhythm. 2. This was a technically difficult study with suboptimal views. 3. The left ventricular size is normal. 4. There is mild concentric left ventricular hypertrophy. 5. The right ventricle is mildly enlarged. 6. The left atrial size is normal. 7. The right atrial size is normal. 8. Unable to visualize septum. 9. The aortic valve is trileaflet and appears structurally normal. 10. The mitral valve is normal. 11. There is trace mitral regurgitation. 12. The tricuspid valve appears structurally normal. 13. Trace tricuspid regurgitation present. 14. Right ventricular systolic pressure is normal at < 35 mmHg. 15. The pulmonic valve was not well visualized. 16. The aortic root size is normal. 17. IVC Not well visulized. 18. There is no pericardial effusion. SOLAR PROJECT ENGINEER: Kaylynn Louie RDCS
--- NOTE | 2019-09-25 13:52 | ECHOS ---
STRESS ECHOCARDIOGRAM LUMASON: Vial INDICATIONS: Essential Hypertension. MEDICATIONS: BASELINE HEART RATE: 101 BASELINE BLOOD PRESSURE: 121/85 MAXIMUM HEART RATE: 164 MAXIMUM BLOOD PRESSURE: 198/79 85% MPHR: 144 100% MPHR: 169 METS: 8.5 MAXIMUM STAGE REACHED: 3 TOTAL EXERCISE TIME: 7:00 CLINICAL INFORMATION: Baseline EKG revealed normal sinus rhythm without significant ST-T changes. Patient walked on a standard Hernán protocol for 7 minutes and achieved a maximal heart rate of 164 beats per minute which is more than 85% of predicted maximal. He developed fatigue and shortness of breath but did not have any angina. There was no arrhythmia. EKG did not reveal any ST-segment changes to indicate ischemia. By EKG criteria, this is a negative stress test with fair exercise capacity. Baseline echo images revealed normal wall motion and wall thickening of all segments. At peak exercise, there was good augmentation of wall motion and wall thickening of all segments suggesting that there is no evidence of stress-induced ischemia on this study. To enhance the quality of images, patient was administered echo contrast. FINAL IMPRESSION: 1. Fair exercise capacity with a negative stress test by EKG criteria. 2. Normal stress echocardiogram. MMODL / IJN: [id number] /
== END | disposition home or self-care (01) ==
LOC: RADNMMAIN 08:59
PROVIDERS: ATTEND Family Medicine
DX: I51.7 Cardiomegaly (principal); R07.9 Chest pain, unspecified
CPT/HCPCS: 93306; 93351; Q9950

== ENCOUNTER 2020-03-02 07:30 | Inpatient (IN) | payer BC ==
[2020-03-02] MEDS ORDERED: SODIUM CHLORIDE 0.9% 1,000 ML IV ONE (07:51)
[2020-03-02] MEDS ORDERED: KETOROLAC 15 MG/ML 1 ML VIAL IVP STA (07:52)
--- NOTE | 2020-03-02 08:07 | ED ---
General Adult HPI - General Chief complaint: Extremity Problem,Nontraumatic Stated complaint: foot pain Time Seen by Provider: 03/02/20 07:33 Source: patient, RN notes reviewed, old records reviewed Mode of arrival: wheelchair Limitations: no limitations - History of Present Illness Initial comments: 54-year-old male presenting with right foot pain and right calf pain. He is noted to pain in the first toe on his right foot over the past several days. This pain does travel into his calf. He's noted some swelling throughout the foot and up to the knee. He denies fever. He denies injury. He has remote history of cancer in this extremity. He is concerned about a blood clot. - Related Data Home Medications Medication Instructions Recorded Confirmed Gabapentin [Neurontin] 300 mg PO TID 07/29/14 03/02/20 Melatonin 10 mg PO HS 07/29/14 03/02/20 Simvastatin [Zocor] 20 mg PO HS 07/29/14 03/02/20 risperiDONE [RisperDAL] 0.5 mg PO HS 07/29/14 03/02/20 Ascorbic Acid [Vitamin C] 1,000 mg PO DAILY 11/13/15 03/02/20 Citalopram Hydrobromide [CeleXA] 10 mg PO HS 11/13/15 03/02/20 Vitamin B Complex 1 cap PO DAILY 11/13/15 03/02/20 Atenolol 100 mg PO DAILY 12/07/15 03/02/20 Lisinopril [Prinivil] 10 mg PO HS 12/20/16 03/02/20 Meclizine [Antivert] 25 mg PO TID 12/20/16 03/02/20 Warfarin [Coumadin] 5 mg PO DAILY 02/16/17 03/02/20 traZODone HCL 150 mg PO HS 05/29/17 03/02/20 Cyclobenzaprine [Flexeril] 10 mg PO BID 03/02/20 03/02/20 Multivit-Min/Folic/Vit K/Lycop 1 tab PO DAILY 03/02/20 03/02/20 [Men's Multivitamin Tablet] Pantoprazole Sodium [Protonix] 40 mg PO HS 03/02/20 03/02/20 Allergies Allergy/AdvReac Type Severity Reaction Status Date / Time No Known Allergies Allergy Verified 03/02/20 07:37 Review of Systems ROS Statement: Those systems with pertinent positive or pertinent negative responses have been documented in the HPI. ROS Other: All systems not noted in ROS Statement are negative. Past Medical History Past Medical History: Cancer, Deep Vein Thrombosis (DVT), GERD/Reflux, Hyperlipidemia, Hypertension, Sleep Apnea/CPAP/BIPAP Additional Past Medical History / Comment(s): melanoma stage IV RT LEG, PAST JAMES WELDING INJ TO LT HAND , USES A CPAP MACHINE, HIATAL HERNIA ,DDD, CHRONIC BACK PAIN, MIGRAINES, DVT RUE History of Any Multi-Drug Resistant Organisms: MRSA Date of last positivie culture/infection: 2004 MDRO Source:: left index finger Past Surgical History: Hernia Repair Additional Past Surgical History / Comment(s): left hand SX TO REPAIR INJURY FROM [employer]., right ziegler CA STAGE IV MELANOMA REMOVED), lymph node surgery RT LEG, PAST PAIN CLIINC PROCEDURES, RT ARM PICC LINE ,SINCE REMOVED, skin CA removed BILAT shoulders, EGD, RECENT SUN SPOTS REMOVED FROM FACE Past Anesthesia/Blood Transfusion Reactions: No Reported Reaction Past Psychological History: No Psychological Hx Reported, Depression Smoking Status: Never smoker Past Alcohol Use History: None Reported, Rare Past Drug Use History: Marijuana - Past Family History Mother Family Medical History: Hypertension Father Family Medical History: Diabetes Mellitus General Exam Limitations: no limitations General appearance: alert, in no apparent distress Head exam: Present: atraumatic, normocephalic Eye exam: Present: normal appearance, PERRL ENT exam: Present: normal exam Neck exam: Present: normal inspection. Absent: tenderness, meningismus Respiratory exam: Present: normal lung sounds bilaterally. Absent: respiratory distress, wheezes Cardiovascular Exam: Present: normal rhythm, tachycardia GI/Abdominal exam: Present: soft. Absent: distended, tenderness Extremities exam: Present: joint swelling (First metacarpophalangeal joint right foot, some associated erythema and soft tissue swelling. Tender to palpation.), calf tenderness Neurological exam: Present: alert, oriented X3, CN II-XII intact. Absent: motor sensory deficit Psychiatric exam: Present: normal affect, normal mood Skin exam: Present: warm, dry, intact. Absent: cyanosis, diaphoretic Course Vital Signs 03/02/20 03/02/20 07:34 09:34 Temperature 99.8 F H Pulse Rate 125 H 117 H Respiratory 16 18 Rate Blood Pressure 155/92 126/94 O2 Sat by Pulse 97 97 Oximetry Medical Decision Making - Medical Decision Making 54-year-old with right first toe and leg pain. DVT ruled out with ultrasound. X-ray negative for acute bony abdomen belly. Patient has a low-grade temp and white blood cell count of 15. Presentation may be gout versus infectious pathology. Patient's pain is quite severe. He is admitted for pain control and antibiotics. - Lab Data Result diagrams: 03/02/20 08:26 03/02/20 08:26 Lab Results 03/02/20 03/02/20 03/02/20 Range/Units 08:26 08:26 08:26 WBC 14.9 H (3.8-10.6) k/uL RBC 4.88 (4.30-5.90) m/uL Hgb 15.5 (13.0-17.5) gm/dL Hct 44.8 (39.0-53.0) % MCV 91.9 (80.0-100.0) fL MCH 31.7 (25.0-35.0) pg MCHC 34.6 (31.0-37.0) g/dL RDW 12.2 (11.5-15.5) % Plt Count 243 (150-450) k/uL Neutrophils % 81 % Lymphocytes % 12 % Monocytes % 4 % Eosinophils % 2 % Basophils % 1 % Neutrophils # 12.1 H (1.3-7.7) k/uL Lymphocytes # 1.8 (1.0-4.8) k/uL Monocytes # 0.5 (0-1.0) k/uL Eosinophils # 0.3 (0-0.7) k/uL Basophils # 0.1 (0-0.2) k/uL Sodium 137 (137-145) mmol/L Potassium 5.1 (3.5-5.1) mmol/L Chloride 104 (98-107) mmol/L Carbon Dioxide 24 (22-30) mmol/L Anion Gap 9 mmol/L BUN 16 (9-20) mg/dL Creatinine 1.06 (0.66-1.25) mg/dL Est GFR (CKD-EPI)AfAm >90 (>60 ml/min/1.73 sqM) Est GFR (CKD-EPI)NonAf 81 (>60 ml/min/1.73 sqM) Glucose 163 H (74-99) mg/dL Plasma Lactic Acid Shay 2.3 H* (0.7-2.0) mmol/L Calcium 9.3 (8.4-10.2) mg/dL Magnesium 1.8 (1.6-2.3) mg/dL Total Bilirubin 0.8 (0.2-1.3) mg/dL AST 37 (17-59) U/L ALT 25 (4-49) U/L Alkaline Phosphatase 89 (38-126) U/L C-Reactive Protein 9.7 (<10.0) mg/L Total Protein 7.9 (6.3-8.2) g/dL Albumin 4.7 (3.5-5.0) g/dL Disposition Clinical Impression: Cellulitis, Monoarticular arthritis Disposition: ADMITTED IP TO THIS [facility] Condition: Stable Is patient prescribed a controlled substance at d/c from ED?: No Referrals: Olman Gonzales MD [Primary Care Provider] - 1-2 days Decision to Admit Reason: Admit from EC Decision Date: 03/02/20 Decision Time: 09:39
[2020-03-02 08:40] LABS: Basophils # (A) 0.1 k/uL (0-0.2); Basophils % (A) 1 %; Eosinophils # (A) 0.3 k/uL (0-0.7); Eosinophils % (A) 2 %; HCT 44.8 % (39.0-53.0); HGB 15.5 gm/dL (13.0-17.5); Lymphocytes # (A) 1.8 k/uL (1.0-4.8); Lymphocytes % (A) 12 %; MCH 31.7 pg (25.0-35.0); MCHC 34.6 g/dL (31.0-37.0); MCV 91.9 fL (80.0-100.0); Mean Platelet Volume 7.8; Monocytes # (A) 0.5 k/uL (0-1.0); Monocytes % (A) 4 %; Neutrophils # (A) 12.1 k/uL (1.3-7.7); Neutrophils % (A) 81 %; Platelet Count 243 k/uL (150-450); RBC 4.88 m/uL (4.30-5.90); RDW 12.2 % (11.5-15.5); WBC 14.9 k/uL (3.8-10.6)
[2020-03-02 08:51] LABS: ALT 25 U/L (4-49); AST 37 U/L (17-59); African American GFR (CKD) >90 (>60 ml/min/1.73 sqM); Albumin 4.7 g/dL (3.5-5.0); Alkaline Phosphatase 89 U/L (38-126); Anion Gap 9 mmol/L; Blood Urea Nitrogen 16 mg/dL (9-20); Calcium 9.3 mg/dL (8.4-10.2); Carbon Dioxide 24 mmol/L (22-30); Chloride 104 mmol/L (98-107); Glucose 163 mg/dL (74-99); Magnesium 1.8 mg/dL (1.6-2.3); Non-African American GFR(CKD) 81 (>60 ml/min/1.73 sqM); Potassium 5.1 mmol/L (3.5-5.1); Sodium 137 mmol/L (137-145); Total Bilirubin 0.8 mg/dL (0.2-1.3); Total Protein 7.9 g/dL (6.3-8.2)
--- NOTE | 2020-03-02 08:52 | XR ---
EXAMINATION TYPE: XR foot complete RT DATE OF EXAM: 03/02/2020 CLINICAL HISTORY: DVT TECHNIQUE: Frontal, lateral, and oblique images of the right foot are obtained. COMPARISON: None FINDINGS: There is no acute fracture/dislocation evident in the right foot. Minimal spurring at the first digit MTP joint. Otherwise joint spaces in the right foot appear within normal limits. Normal osseous mineralization. The overlying soft tissue appears unremarkable. IMPRESSION: No acute osseous abnormality in the right foot.
[2020-03-02 09:02] LABS: C Reactive Protein 9.7 mg/L (<10.0)
--- NOTE | 2020-03-02 09:06 | US ---
EXAMINATION TYPE: US venous doppler duplex LE RT DATE OF EXAM: 03/02/2020 7:53 AM COMPARISON: 09/29/2017 CLINICAL HISTORY: 54-year-old male 1st toe pain and swelling. On blood thinners. Patient states prio r history of a right leg DVT. Right big toe pain. Hx Melanoma. SIDE PERFORMED: Right TECHNIQUE: The lower extremity deep venous system is examined utilizing real time linear array sonog kacey with graded compression, doppler sonography and color-flow sonography. FINDINGS: VESSELS IMAGED: External Iliac Vein (EIV) Common Femoral Vein Deep Femoral Vein Greater Saphenous Vein * Femoral Vein Popliteal Vein Small Saphenous Vein * Proximal Calf Veins (* superficial vessels) Right Leg: Negative for DVT IMPRESSION: No evidence for DVT within the right lower extremity imaged from the groin to the upper calf.
[2020-03-02] MEDS ORDERED: cefTRIAXone IN SWFI 1,000 MG/10 ML SYRINGE IVP STA (09:19)
[2020-03-02] MEDS ORDERED: MORPHINE SULFATE 4 MG/ML SYRINGE IVP STA (09:19)
[2020-03-02] MEDS ORDERED: VANCOMYCIN IV PER PHARMACY 1 EACH MISC MISCELLANE PRN (09:19)
[2020-03-02] MEDS ORDERED: NALOXONE 0.4 MG/ML 1 ML VIAL IV PRN (09:33)
[2020-03-02] MEDS ORDERED: ACETAMINOPHEN TAB 325 MG TAB PO PRN (09:33)
[2020-03-02] MEDS ORDERED: VANCOMYCIN 2,250 MG in SODIUM CHLORIDE 0.9% 500 ML 500 ML IVPB ONE (10:00)
[2020-03-02] MEDS: SODIUM CHLORIDE 0.9% 1,000 ML IV SCH (11:53)
[2020-03-02] MEDS: MORPHINE SULFATE 4 MG/ML SYRINGE IV PRN ×3 (13:12→23:10)
--- NOTE | 2020-03-02 14:26 | P.HPIM ---
History of Present Illness This is a pleasant 54 years old male with past medical history of right upper extremity venous thrombosis not on anticoagulation,melanoma, GERD, hyperlipidemia, hypertension, sleep apnea on CPAP/BiPAP, osteoarthritis and chronic low back pain, migraine. Presents because of the right lower extremity pain and swelling and redness for 3 days of duration is started from the great toe with no trauma or wounds On the presentation patient has fever of 99.8, slightly tachycardic at 117, her lactic acid is elevated Doppler of the right lower extremity is negative for DVT. Foot x-ray is showing no acute process. His elevated lactic acid of 2.3 came back to normal at 1.7. WBCs elevated at 14.9 K. Rest of labs are reviewed and are unremarkable Review of Systems CONSTITUTIONAL: No fever, no malaise, no fatigue. HEENT: No recent visual problems or hearing problems. Denied any sore throat. CARDIOVASCULAR: No orthopnea, PND, no palpitations, no syncope. PULMONARY: No shortness of breath, no cough, no hemoptysis. GASTROINTESTINAL: No diarrhea, no nausea, no vomiting, no abdominal pain. Nor moactive bowel sounds. NEUROLOGICAL: No headaches, no weakness, no numbness. HEMATOLOGICAL: Denies any bleeding or petechiae. GENITOURINARY: Denies any burning micturition, frequency, or urgency. MUSCULOSKELETAL/RHEUMATOLOGICAL: Denies any joint pain, swelling, or any muscle pain. ENDOCRINE: Denies any polyuria or polydipsia. Past Medical History Past Medical History: Cancer, Deep Vein Thrombosis (DVT), GERD/Reflux, Hyperlipidemia, Hypertension, Sleep Apnea/CPAP/BIPAP Additional Past Medical History / Comment(s): melanoma stage IV RT LEG, PAST JAMES WELDING INJ TO LT HAND , USES A CPAP MACHINE, HIATAL HERNIA ,DDD, CHRONIC BACK PAIN, MIGRAINES, DVT RUE History of Any Multi-Drug Resistant Organisms: MRSA Date of last positivie culture/infection: 2004 MDRO Source:: left index finger Past Surgical History: Hernia Repair Additional Past Surgical History / Comment(s): left hand SX TO REPAIR INJURY FROM HEAD OF DESIGN., right ziegler CA STAGE IV MELANOMA REMOVED), lymph node surgery RT LEG, PAST PAIN CLIINC PROCEDURES, RT ARM PICC LINE ,SINCE REMOVED, skin CA removed BILAT shoulders, EGD, RECENT SUN SPOTS REMOVED FROM FACE Past Anesthesia/Blood Transfusion Reactions: No Reported Reaction Past Psychological History: No Psychological Hx Reported, Depression Additional Psychological History / Comment(s): UNDER CONTROL WITH RX Smoking Status: Never smoker Past Alcohol Use History: None Reported, Rare Additional Past Alcohol Use History / Comment(s): QUIT SMOKING CIG IN 1986, Past Drug Use History: Marijuana - Past Family History Mother Family Medical History: Hypertension Father Family Medical History: Diabetes Mellitus Medications and Allergies Home Medications Medication Instructions Recorded Confirmed Type Gabapentin [Neurontin] 300 mg PO TID 07/29/14 03/02/20 History Melatonin 10 mg PO HS 07/29/14 03/02/20 History Simvastatin [Zocor] 20 mg PO HS 07/29/14 03/02/20 History risperiDONE [RisperDAL] 0.5 mg PO HS 07/29/14 03/02/20 History Ascorbic Acid [Vitamin C] 1,000 mg PO DAILY 11/13/15 03/02/20 History Citalopram Hydrobromide [CeleXA] 10 mg PO HS 11/13/15 03/02/20 History Vitamin B Complex 1 cap PO DAILY 11/13/15 03/02/20 History Atenolol 100 mg PO DAILY 12/07/15 03/02/20 History Lisinopril [Prinivil] 10 mg PO HS 12/20/16 03/02/20 History Meclizine [Antivert] 25 mg PO TID 12/20/16 03/02/20 History Warfarin [Coumadin] 5 mg PO DAILY 02/16/17 03/02/20 History traZODone HCL 150 mg PO HS 05/29/17 03/02/20 History Cyclobenzaprine [Flexeril] 10 mg PO BID 03/02/20 03/02/20 History Multivit-Min/Folic/Vit K/Lycop 1 tab PO DAILY 03/02/20 03/02/20 History [Men's Multivitamin Tablet] Pantoprazole Sodium [Protonix] 40 mg PO HS 03/02/20 03/02/20 History Allergies Allergy/AdvReac Type Severity Reaction Status Date / Time No Known Allergies Allergy Verified 03/02/20 07:37 Physical Exam Vitals: Vital Signs Temp Pulse Pulse Resp BP BP Pulse Ox 03/02/20 10:32 98.1 F 114 H 18 126/75 97 03/02/20 09:34 117 H 18 126/94 97 03/02/20 07:34 99.8 F H 125 H 16 155/92 97 Intake and Output 03/01/20 03/02/20 03/02/20 22:59 06:59 14:59 Other: Weight 113.398 kg GENERAL: The patient is alert and oriented x3, not in any acute distress. Well developed, well nourished. HEENT: Pupils are round and equally reacting to light. EOMI. No scleral icterus. No conjunctival pallor. Normocephalic, atraumatic. No pharyngeal erythema. No thyromegaly. CARDIOVASCULAR: S1 and S2 present. No murmurs, rubs, or gallops. PULMONARY: Chest is clear to auscultation, no wheezing or crackles. ABDOMEN: Soft, nontender, nondistended, normoactive bowel sounds. No palpable organomegaly. MUSCULOSKELETAL: No joint swelling or deformity. -EXTREMITIES: No cyanosis, clubbing, or pedal edema. Right leg is swollen, warm and tender to touch with pink discoloration. No open wound NEUROLOGICAL: Gross neurological examination did not reveal any focal deficits. SKIN: No rashes. No petechiae Results CBC & Chem 7: 03/02/20 08:26 03/02/20 08:26 Labs: Abnormal Lab Results - Last 24 Hours (Table) 03/02/20 03/02/20 03/02/20 Range/Units 08:26 08:26 08:26 WBC 14.9 H (3.8-10.6) k/uL Neutrophils # 12.1 H (1.3-7.7) k/uL Glucose 163 H (74-99) mg/dL Plasma Lactic Acid Shay 2.3 H* (0.7-2.0) mmol/L Thrombosis Risk Factor Assmnt - Choose All That Apply Each Factor Represents 1 point: Age 41-60 years, Swollen legs (current) Each Risk Factor Represents 3 Points: Family history of DVT/PE Thrombosis Risk Factor Assessment Total Risk Factor Score: 5 Thrombosis Risk Factor Assessment Level: High Risk Assessment and Plan Assessment: Acute Right lower extremity cellulitis Sepsis secondary to above with no gross ecchymosis, fever and tachycardia Elevated lactic acid, came back to normal Hypertension Hyperlipidemia Sleep apnea on CPAP/BiPAP, degenerative disc disease with chronic low back pain Migraine Obesity with BMI of 36.9 History of right upper extremity venous thrombosis not an antegrade cannulation History of melanoma Plan: This is a pleasant 54 years old male who presents with acute right lower extremity cellulitis. Continue with antibiotics per infectious disease team. Consult with ID team. Follow-up on monitor vitals and labs Labs and medication were reviewed.. Continue same treatment. Continue with symptomatic treatment. Resume home medication. Monitor lytes and vitals. DVT and GI prophylaxis. Further recommendations depends on the clinical course of the patient DVT prophylaxis: Subcutaneous heparin GI Prophylaxis: Pepcid PT/OT: Pending Prognosis is guarded
[2020-03-02] MEDS: VANCOMYCIN 2,000 MG in SODIUM CHLORIDE 0.9% 500 ML 500 ML IVPB SCH (21:17)
[2020-03-03] MEDS: MORPHINE SULFATE 4 MG/ML SYRINGE IV PRN ×4 (05:40→22:13)
[2020-03-03] MEDS ORDERED: HEPARIN SODIUM,PORCINE 5,000 UNIT/ML 1 ML VIAL SQ SCH (08:00)
[2020-03-03] MEDS ORDERED: FAMOTIDINE 20 MG/2 ML VIAL IV SCH (09:00)
[2020-03-03] MEDS ORDERED: MECLIZINE 25 MG TAB PO PRN (09:38)
[2020-03-03] MEDS: NON FORMULARY DRUG (Vitamin B Complex [Vitamin B Complex] 1 EACH Capsule) PO SCH (09:53)
[2020-03-03] MEDS: GABAPENTIN 300 MG CAP PO SCH ×3 (10:00→22:14)
[2020-03-03] MEDS: ASCORBIC ACID 500 MG TAB PO SCH (10:00)
[2020-03-03] MEDS: SODIUM CHLORIDE 0.9% 1,000 ML IV SCH (10:30)
[2020-03-03] MEDS: VANCOMYCIN 2,000 MG in SODIUM CHLORIDE 0.9% 500 ML 500 ML IVPB SCH (10:30)
--- NOTE | 2020-03-03 11:32 | CDI ---
Documentation Clarification Form Date: 03/03/2020 11:18:20 AM From: Nupur Gerber RN CCDS Admit Date: 03/02/2020 09:33:00 AM Patient Name: Hamilton Orta Visit Number: [id number] Discharge Date: ATTENTION: The Clinical Documentation Specialists (CDI) and [facility] Coding Staff appreciate your assistance in clarifying documentation. Please respond to the clarification below the line at the bottom and electronically sign. The CDI & [facility] Coding staff will review the response and follow-up if needed. Please note: Queries are made part of the Legal Health Record. If you have any questions, please contact the author of this message via ITS. Dr. Farah E Sheet The documentation in the medical record included Elevated lactic acid came back normal documented in the H&P 03/02 Past medical history/Risk Factors: 54-year-old male presents to the ED for right lower leg pain swelling and redness. Medical History: right upper extremity DVT not on anticoagulation, melanoma, HTN, sleep apnea and chronic back pain. Admitted with sepsis and cellulitis of the right lower extremity. Clinical Indicators: 03/02 Lactic acid 2.3; 1.7 03/02 Vital signs: B/P: 155/92; HR: 125; Temp: 99.8 F Oral; RR: 16; SpO2 97% room air Treatment: 03/02 0.9 ns 1L bolus In your professional opinion, can you please clarify if the above clinical indicators and treatment signify any of the following? Lactic Acidosis Unable to determine Other, please specify (Last Revision: February 2017) lactic acidemia MTDD
[2020-03-03 11:56] LABS: Basophils # (A) 0.1 k/uL (0-0.2); Basophils % (A) 1 %; Eosinophils # (A) 0.3 k/uL (0-0.7); Eosinophils % (A) 4 %; HCT 42.5 % (39.0-53.0); HGB 14.5 gm/dL (13.0-17.5); Lymphocytes # (A) 2.7 k/uL (1.0-4.8); Lymphocytes % (A) 34 %; MCH 31.9 pg (25.0-35.0); MCV 93.8 fL (80.0-100.0); Mean Platelet Volume 7.8; Monocytes # (A) 0.4 k/uL (0-1.0); Monocytes % (A) 6 %; Neutrophils # (A) 4.3 k/uL (1.3-7.7); Neutrophils % (A) 54 %; Platelet Count 195 k/uL (150-450); RBC 4.53 m/uL (4.30-5.90); RDW 12.4 % (11.5-15.5); WBC 8.1 k/uL (3.8-10.6)
[2020-03-03 12:05] LABS: INR 1.9 (<1.2); Prothrombin Time 18.7 sec (9.0-12.0)
[2020-03-03 12:22] LABS: African American GFR (CKD) 84 (>60 ml/min/1.73 sqM); Anion Gap 8 mmol/L; Blood Urea Nitrogen 18 mg/dL (9-20); Calcium 8.6 mg/dL (8.4-10.2); Carbon Dioxide 26 mmol/L (22-30); Chloride 106 mmol/L (98-107); Glucose 98 mg/dL (74-99); Non-African American GFR(CKD) 73 (>60 ml/min/1.73 sqM); Potassium 4.4 mmol/L (3.5-5.1); Sodium 140 mmol/L (137-145)
--- NOTE | 2020-03-03 13:29 | P.PN ---
Subjective This is Patient a pleasant 54 years old male with past medical history of right upper extremity venous thrombosis not on anticoagulation,melanoma, GERD, hyperlipidemia, hypertension, sleep apnea on CPAP/BiPAP, osteoarthritis and chronic low back pain, migraine. Presents because of the right lower extremity pain and swelling and redness for 3 days of duration is started from the great toe with no trauma or wounds On the presentation patient has fever of 99.8, slightly tachycardic at 117, her lactic acid is elevated Doppler of the right lower extremity is negative for DVT. Foot x-ray is showing no acute process. His elevated lactic acid of 2.3 came back to normal at 1.7. WBCs elevated at 14.9 K. Rest of labs are reviewed and are unremarkable 03/03/2020 right lower extremity swelling, tenderness and warmth are significantly improved today. Leukocytosis is back to normal and patient is afebrile INR today is 1.9 Patient remains on IV vancomycin with ID team been consulted Possible discharge in 24-48 hours Objective - Vital Signs Vital signs: Vital Signs Temp 98.2 F 03/03/20 09:49 Pulse 96 03/03/20 09:49 Resp 18 03/03/20 09:49 BP 140/98 03/03/20 09:49 Pulse Ox 98 03/03/20 09:49 Intake & Output 03/02/20 03/03/20 03/03/20 18:59 06:59 18:59 Intake Total 540 Balance 540 Weight 113.398 kg Intake: Intake, IV Titration 240 Amount Sodium Chloride 0.9% 1, 240 000 ml @ 20 mls/hr IV . Q24H [facility] Rx#:[id number] Oral 300 Other: # Voids 2 - Exam GENERAL: The patient is alert and oriented x3, not in any acute distress. Well developed, well nourished. HEENT: Pupils are round and equally reacting to light. EOMI. No scleral icterus. No conjunctival pallor. Normocephalic, atraumatic. No pharyngeal erythema. No thyromegaly. CARDIOVASCULAR: S1 and S2 present. No murmurs, rubs, or gallops. PULMONARY: Chest is clear to auscultation, no wheezing or crackles. ABDOMEN: Soft, nontender, nondistended, normoactive bowel sounds. No palpable organomegaly. MUSCULOSKELETAL: No joint swelling or deformity. -EXTREMITIES: No cyanosis, clubbing, or pedal edema. Right leg is swollen, warm and tender to touch with pink discoloration. No open wound NEUROLOGICAL: Gross neurological examination did not reveal any focal deficits. SKIN: No rashes. No petechiae - Labs CBC & Chem 7: 03/03/20 11:24 03/03/20 11:24 Labs: Abnormal Lab Results - Last 24 Hours (Table) 03/03/20 Range/Units 11:24 PT 18.7 H (9.0-12.0) sec INR 1.9 H (<1.2) Microbiology - Last 24 Hours (Table) 03/02/20 08:26 Blood Culture - Preliminary Blood No Growth after 24 hours Assessment and Plan Assessment: Acute Right lower extremity cellulitis Sepsis secondary to above with no gross ecchymosis, fever and tachycardia Elevated lactic acid, came back to normal Hypertension Hyperlipidemia Sleep apnea on CPAP/BiPAP, degenerative disc disease with chronic low back pain Migraine Obesity with BMI of 36.9 History of right upper extremity venous thrombosis not an antegrade cannulation History of melanoma Plan: This is a pleasant 54 years old male who presents with acute right lower extremity cellulitis. Continue with antibiotics per infectious disease team. Consult with ID team. Follow-up on monitor vitals and labs Labs and medication were reviewed.. Continue same treatment. Continue with symptomatic treatment. Resume home medication. Monitor lytes and vitals. DVT and GI prophylaxis. Further recommendations depends on the clinical course of the patient DVT prophylaxis: Subcutaneous heparin GI Prophylaxis: Pepcid PT/OT: Pending Prognosis is guarded
[2020-03-03] MEDS: KETOROLAC 15 MG/ML 1 ML VIAL IVP PRN ×2 (15:48→22:15)
[2020-03-03] MEDS: MULTIVITAMINS, THERA 1 EACH TAB PO SCH (15:49)
[2020-03-03] MEDS: MELATONIN 5 MG TABLET PO SCH (22:14)
[2020-03-03] MEDS: risperiDONE 0.5 MG TAB PO SCH (22:14)
[2020-03-03] MEDS: traZODone HCL 50 MG TAB PO SCH (22:14)
[2020-03-03] MEDS: PANTOPRAZOLE 40 MG TABLET PO SCH (22:14)
[2020-03-03] MEDS: CITALOPRAM HYDROBROMIDE 10 MG TAB PO SCH (22:14)
[2020-03-03] MEDS: lisinopriL 10 MG TAB PO SCH (22:14)
[2020-03-03] MEDS: CYCLOBENZAPRINE 10 MG TAB PO SCH (22:14)
[2020-03-03] MEDS: COLCHICINE 0.6 MG EACH PO SCH (22:14)
[2020-03-03] MEDS: ATORVASTATIN 10 MG TAB PO SCH (22:14)
--- NOTE | 2020-03-03 22:18 | P.CONS ---
History of Present Illness - Reason for Consult Consult date: 03/03/20 Right foot cellulitis Requesting physician: Gagan E Chidi - Chief Complaint Right foot pain and swelling x few days - History of Present Illness Patient is a 54-year-old male presenting to the ER at [facility] yesterday morning for evaluation of the right foot pain and swelling patient noticed to having symptoms started predominantly in the right big toe for the last few days patient described the pain to be throbbing as long as 6-7 out of 10 and no radiation subsequently the patient noticed some swelling redness spreading to the dorsum of his right foot that concern the patient did have symptoms but denies high-grade fever with the symptoms the patient presented to the hospital on arrival to the ER patient did have low-grade fever of 99.8. Elevated creatinine of 14,000 patient did have x-rays of the right foot which was negative for any bony changes patient was diagnosed with a cellulitis he was started on vancomycin has been admitted to the hospital infectious disease was consulted today for further management of antibiotic therapy Review of Systems Positive point has been mentioned in the HPI rest of the systems are negative Past Medical History Past Medical History: Cancer, Deep Vein Thrombosis (DVT), GERD/Reflux, Hyperlipidemia, Hypertension, Sleep Apnea/CPAP/BIPAP Additional Past Medical History / Comment(s): melanoma stage IV RT LEG, PAST JAMES WELDING INJ TO LT HAND , USES A CPAP MACHINE, HIATAL HERNIA ,DDD, CHRONIC BACK PAIN, MIGRAINES, DVT RUE History of Any Multi-Drug Resistant Organisms: MRSA Year Discovered:: 2004 MDRO Source:: left index finger Past Surgical History: Hernia Repair Additional Past Surgical History / Comment(s): left hand SX TO REPAIR INJURY FROM [employer] EX[employer]OR., right ziegler CA STAGE IV MELANOMA REMOVED), lymph node surgery RT LEG, PAST PAIN CLIINC PROCEDURES, RT ARM PICC LINE ,SINCE REMOVED, skin CA removed BILAT shoulders, EGD, RECENT SUN SPOTS REMOVED FROM FACE Past Anesthesia/Blood Transfusion Reactions: No Reported Reaction Past Psychological History: No Psychological Hx Reported, Depression Additional Psychological History / Comment(s): UNDER CONTROL WITH RX Smoking Status: Never smoker Past Alcohol Use History: None Reported, Rare Additional Past Alcohol Use History / Comment(s): QUIT SMOKING CIG IN 1986, Past Drug Use History: Marijuana - Past Family History Mother Family Medical History: Hypertension Father Family Medical History: Diabetes Mellitus Medications and Allergies Home Medications Medication Instructions Recorded Confirmed Type Gabapentin [Neurontin] 300 mg PO TID 07/29/14 03/02/20 History Melatonin 10 mg PO HS 07/29/14 03/02/20 History Simvastatin [Zocor] 20 mg PO HS 07/29/14 03/02/20 History risperiDONE [RisperDAL] 0.5 mg PO HS 07/29/14 03/02/20 History Ascorbic Acid [Vitamin C] 1,000 mg PO DAILY 11/13/15 03/02/20 History Citalopram Hydrobromide [CeleXA] 10 mg PO HS 11/13/15 03/02/20 History Vitamin B Complex 1 cap PO DAILY 11/13/15 03/02/20 History Atenolol 100 mg PO DAILY 12/07/15 03/02/20 History Lisinopril [Prinivil] 10 mg PO HS 12/20/16 03/02/20 History Meclizine [Antivert] 25 mg PO TID 12/20/16 03/02/20 History Warfarin [Coumadin] 5 mg PO DAILY 02/16/17 03/02/20 History traZODone HCL 150 mg PO HS 05/29/17 03/02/20 History Cyclobenzaprine [Flexeril] 10 mg PO BID 03/02/20 03/02/20 History Multivit-Min/Folic/Vit K/Lycop 1 tab PO DAILY 03/02/20 03/02/20 History [Men's Multivitamin Tablet] Pantoprazole Sodium [Protonix] 40 mg PO HS 03/02/20 03/02/20 History Allergies Allergy/AdvReac Type Severity Reaction Status Date / Time No Known Allergies Allergy Verified 03/02/20 07:37 Physical Exam Vitals: Vital Signs Temp Pulse Resp BP Pulse Ox 03/03/20 20:42 98.2 F 89 18 127/81 95 03/03/20 20:00 89 18 03/03/20 17:18 98.2 F 94 18 178/78 94 L 03/03/20 16:00 18 03/03/20 09:49 98.2 F 96 18 140/98 98 03/03/20 03:03 98.8 F 101 H 19 122/81 96 03/03/20 00:00 20 Intake and Output 03/03/20 03/03/20 03/03/20 06:59 14:59 22:59 Intake Total 540 700 Balance 540 700 Intake: Intake, IV Titration 240 700 Amount Sodium Chloride 0.9% 1, 240 100 000 ml @ 20 mls/hr IV . Q24H [facility] Rx#:[id number] Vancomycin 2,000 mg In 500 Sodium Chloride 0.9% 500 ml 500 ml @ 167 mls/hr IVPB Q12H [facility] Rx#: [id number] ceFAZolin 2 gm In Sodium 100 Chloride 0.9% 50 ml @ 100 mls/hr IVPB Q8HR [facility] Rx# :[id number] Oral 300 Other: # Voids 2 2 1 GENERAL DESCRIPTION: Middle-aged male lying in bed, no distress. No tachypnea or accessory muscle of respiration use. HEENT: Shows Pallor , no scleral icterus. Oral mucous membrane is dry. No pharyngeal erythema or thrush NECK: Trachea central, no thyromegaly. LUNGS: Unlabored breathing. Clear to auscultation anteriorly. No wheeze or crackle. HEART: S1, S2, regular rate and rhythm. No loud murmur ABDOMEN: Soft, no tenderness , guarding or rigidity, no organomegaly EXTREMITIES: Right foot first metatarsophalangeal joint area is swollen with minimal redness on the dorsum aspect of the right foot right toe is tender to touch no bone wound or any drainage SKIN: No rash, no masses palpable. NEUROLOGICAL: The patient is awake, alert, oriented x3, mood and affect normal. Results CBC & Chem 7: 03/03/20 11:24 03/03/20 11:24 Labs: Abnormal Lab Results - Last 24 Hours (Table) 03/03/20 Range/Units 11:24 PT 18.7 H (9.0-12.0) sec INR 1.9 H (<1.2) Microbiology - Last 24 Hours (Table) 03/02/20 08:26 Blood Culture - Preliminary Blood No Growth after 24 hours Assessment and Plan Assessment: 1- patient presented to hospital with right foot pain in this patient symptom predominantly at the first metatarsophalangeal joint with minimal erythema on the dorsal aspect of the right foot high clinical suspicious for acute gouty arthritis versus cellulitis possibly from gram-positive skin nathalia (1) Cellulitis of right foot Current Visit: Yes Status: Acute Code(s): L03.115 - CELLULITIS OF RIGHT LOWER LIMB SNOMED Code(s): 291183111 (2) Gouty arthritis of great toe Current Visit: Yes Status: Acute Code(s): M10.9 - GOUT, UNSPECIFIED SNOMED Code(s): 204356766 Plan: 1- we will check a uric acid level 2-discontinue vancomycin 3- start the patient cefazolin 2 g every 8 hours 4- colchicine 0.6 mg twice a day We will follow on clinical condition and cultures to further adjust medication if needed Thank you for this consultation will follow this patient with you Time with Patient: Greater than 30
[2020-03-04] MEDS: MORPHINE SULFATE 4 MG/ML SYRINGE IV PRN (06:18)
[2020-03-04] MEDS: KETOROLAC 15 MG/ML 1 ML VIAL IVP PRN (06:19)
[2020-03-04 06:31] LABS: Basophils # (A) 0.1 k/uL (0-0.2); Basophils % (A) 1 %; Eosinophils # (A) 0.3 k/uL (0-0.7); Eosinophils % (A) 5 %; HCT 41.1 % (39.0-53.0); Lymphocytes # (A) 1.9 k/uL (1.0-4.8); Lymphocytes % (A) 33 %; MCH 31.9 pg (25.0-35.0); MCHC 33.9 g/dL (31.0-37.0); MCV 94.1 fL (80.0-100.0); Mean Platelet Volume 7.4; Monocytes # (A) 0.3 k/uL (0-1.0); Monocytes % (A) 5 %; Neutrophils # (A) 3.2 k/uL (1.3-7.7); Neutrophils % (A) 54 %; Platelet Count 183 k/uL (150-450); RBC 4.37 m/uL (4.30-5.90); RDW 12.1 % (11.5-15.5); WBC 5.8 k/uL (3.8-10.6)
[2020-03-04] MEDS: ASCORBIC ACID 500 MG TAB PO SCH (07:45)
[2020-03-04] MEDS: GABAPENTIN 300 MG CAP PO SCH ×3 (07:45→21:18)
[2020-03-04] MEDS: CYCLOBENZAPRINE 10 MG TAB PO SCH ×2 (07:45→21:18)
[2020-03-04] MEDS: COLCHICINE 0.6 MG EACH PO SCH ×2 (07:45→21:19)
[2020-03-04] MEDS: MULTIVITAMINS, THERA 1 EACH TAB PO SCH (07:46)
[2020-03-04] MEDS: atenoloL 50 MG TAB PO SCH (07:46)
[2020-03-04] MEDS: NON FORMULARY DRUG (Vitamin B Complex [Vitamin B Complex] 1 EACH Capsule) PO SCH (07:47)
[2020-03-04 09:01] LABS: INR 1.45 (0.90-1.11); Prothrombin Time 15.3 sec (9.9-11.9)
[2020-03-04] MEDS ORDERED: COLCHICINE 0.6 MG EACH PO ONE (11:33)
--- NOTE | 2020-03-04 11:34 | P.PN ---
Subjective This is Patient a pleasant 54 years old male with past medical history of right upper extremity venous thrombosis not on anticoagulation,melanoma, GERD, hyperlipidemia, hypertension, sleep apnea on CPAP/BiPAP, osteoarthritis and chronic low back pain, migraine. Presents because of the right lower extremity pain and swelling and redness for 3 days of duration is started from the great toe with no trauma or wounds On the presentation patient has fever of 99.8, slightly tachycardic at 117, her lactic acid is elevated Doppler of the right lower extremity is negative for DVT. Foot x-ray is showing no acute process. His elevated lactic acid of 2.3 came back to normal at 1.7. WBCs elevated at 14.9 K. Rest of labs are reviewed and are unremarkable 03/03/2020 right lower extremity swelling, tenderness and warmth are significantly improved today. Leukocytosis is back to normal and patient is afebrile INR today is 1.9 Patient remains on IV vancomycin with ID team been consulted Possible discharge in 24-48 hours 03/04/20 Patient's right leg cellulitis is improving however he has got the attack of the right great toe. His creatinine normal and we can give him colchicine. His INR today is trending down to 1.45. He takes 5 mg daily for the last 5 years for clot in his right leg 2 about 5 years ago and his been told he should be on blood thinner for rest of his life. We are going to visit dose of Coumadin tonight and covered with a bridging with Lovenox. As patient is high- risk for another clot in the leg I think he should be Monitored in the hospital for now , discussed with patient and he agrees to stay Objective - Vital Signs Vital signs: Vital Signs Temp 98.3 F 03/04/20 07:00 Pulse 95 03/04/20 07:00 Resp 16 03/04/20 00:20 BP 145/83 03/04/20 07:00 Pulse Ox 95 03/04/20 07:00 Intake & Output 03/03/20 03/04/20 03/04/20 18:59 06:59 18:59 Intake Total 700 1650 Balance 700 1650 Intake: Intake, IV Titration 700 450 Amount Sodium Chloride 0.9% 1, 100 300 000 ml @ 20 mls/hr IV . Q24H [facility] Rx#:[id number] Vancomycin 2,000 mg In 500 Sodium Chloride 0.9% 500 ml 500 ml @ 167 mls/hr IVPB Q12H [facility] Rx#: [id number] ceFAZolin 2 gm In Sodium 100 150 Chloride 0.9% 50 ml @ 100 mls/hr IVPB Q8HR [facility] Rx# :[id number] Oral 1200 Other: # Voids 2 2 - Exam GENERAL: The patient is alert and oriented x3, not in any acute distress. Well developed, well nourished. HEENT: Pupils are round and equally reacting to light. EOMI. No scleral icterus. No conjunctival pallor. Normocephalic, atraumatic. No pharyngeal erythema. No thyromegaly. CARDIOVASCULAR: S1 and S2 present. No murmurs, rubs, or gallops. PULMONARY: Chest is clear to auscultation, no wheezing or crackles. ABDOMEN: Soft, nontender, nondistended, normoactive bowel sounds. No palpable organomegaly. MUSCULOSKELETAL: No joint swelling or deformity. -EXTREMITIES: No cyanosis, clubbing, or pedal edema. Right leg is swollen, warm and tender to touch with pink discoloration. No open wound. Clear efflux of lytes is significantly improved however he has redness and tenderness of the right tarsometatarsal joint NEUROLOGICAL: Gross neurological examination did not reveal any focal deficits. SKIN: No rashes. No petechiae - Labs CBC & Chem 7: 03/04/20 06:09 03/03/20 11:24 Labs: Abnormal Lab Results - Last 24 Hours (Table) 03/03/20 03/04/20 Range/Units 11:24 06:09 PT 18.7 H 15.3 H (9.0-12.0) sec INR 1.9 H 1.45 H (<1.2) Microbiology - Last 24 Hours (Table) 03/02/20 08:26 Blood Culture - Preliminary Blood No Growth after 48 hours Assessment and Plan Assessment: Acute Right lower extremity cellulitis Sepsis secondary to above with no gross ecchymosis, fever and tachycardia Elevated lactic acid, came back to normal Hypertension Hyperlipidemia Sleep apnea on CPAP/BiPAP, degenerative disc disease with chronic low back pain Migraine Obesity with BMI of 36.9 History of right upper extremity venous thrombosis not an antegrade cannulation History of melanoma Plan: This is a pleasant 54 years old male who presents with acute right lower extremity cellulitis. Continue with antibiotics per infectious disease team. Consult with ID team. Follow-up on monitor vitals and labs Labs and medication were reviewed.. Continue same treatment. Continue with symptomatic treatment. Resume home medication. Monitor lytes and vitals. DVT and GI prophylaxis. Further recommendations depends on the clinical course of the patient DVT prophylaxis: Subcutaneous heparin GI Prophylaxis: Pepcid PT/OT: Pending Prognosis is guarded
[2020-03-04] MEDS: SODIUM CHLORIDE 0.9% 1,000 ML IV SCH (12:31)
[2020-03-04] MEDS: ENOXAPARIN 120 MG/0.8 ML SYRINGE SQ SCH ×2 (14:43→21:19)
[2020-03-04] MEDS ORDERED: WARFARIN 2 MG TAB PO ONE (18:00)
[2020-03-04] MEDS ORDERED: WARFARIN 3 MG TAB PO ONE (18:00)
[2020-03-04] MEDS ORDERED: WARFARIN 3 MG TAB PO SCH (18:00)
[2020-03-04] MEDS: ATORVASTATIN 10 MG TAB PO SCH (21:19)
[2020-03-04] MEDS: CITALOPRAM HYDROBROMIDE 10 MG TAB PO SCH (21:19)
[2020-03-04] MEDS: risperiDONE 0.5 MG TAB PO SCH (21:19)
[2020-03-04] MEDS: traZODone HCL 50 MG TAB PO SCH (21:19)
[2020-03-04] MEDS: lisinopriL 10 MG TAB PO SCH (21:19)
[2020-03-04] MEDS: MELATONIN 5 MG TABLET PO SCH (21:19)
[2020-03-04] MEDS: PANTOPRAZOLE 40 MG TABLET PO SCH (21:19)
[2020-03-05 07:36] VITALS: RESP 18; TEMP 98.2
[2020-03-05 07:53] LABS: Basophils # (A) 0.1 k/uL (0-0.2); Basophils % (A) 1 %; Eosinophils # (A) 0.3 k/uL (0-0.7); Eosinophils % (A) 5 %; HGB 14.4 gm/dL (13.0-17.5); Lymphocytes # (A) 2.4 k/uL (1.0-4.8); Lymphocytes % (A) 35 %; MCH 31.7 pg (25.0-35.0); MCHC 34.4 g/dL (31.0-37.0); MCV 92.3 fL (80.0-100.0); Mean Platelet Volume 7.7; Monocytes # (A) 0.4 k/uL (0-1.0); Monocytes % (A) 5 %; Neutrophils # (A) 3.4 k/uL (1.3-7.7); Neutrophils % (A) 51 %; Platelet Count 218 k/uL (150-450); RBC 4.54 m/uL (4.30-5.90); WBC 6.7 k/uL (3.8-10.6)
[2020-03-05] MEDS: ASCORBIC ACID 500 MG TAB PO SCH (08:03)
[2020-03-05] MEDS: MULTIVITAMINS, THERA 1 EACH TAB PO SCH (08:05)
[2020-03-05] MEDS: CYCLOBENZAPRINE 10 MG TAB PO SCH (08:05)
[2020-03-05] MEDS: atenoloL 50 MG TAB PO SCH (08:05)
[2020-03-05] MEDS: ENOXAPARIN 120 MG/0.8 ML SYRINGE SQ SCH (08:05)
[2020-03-05] MEDS: GABAPENTIN 300 MG CAP PO SCH (08:05)
[2020-03-05] MEDS: COLCHICINE 0.6 MG EACH PO SCH (08:06)
[2020-03-05] MEDS: NON FORMULARY DRUG (Vitamin B Complex [Vitamin B Complex] 1 EACH Capsule) PO SCH (08:07)
--- NOTE | 2020-03-05 09:27 | P.PN ---
Subjective Progress Note Date: 03/05/20 Principal diagnosis: 54-year-old male resting comfortably. Patient's right leg cellulitis improved, however had an attack of gouty arthritis of right great toe. Patient started on colchicine for discomfort. Patient has significant history of right lower leg DVT, INR subtherapeutic, continue Coumadin therapy, with bridging of Lovenox for coverage of DVTs. Continue continue antibiotic therapy per infectious disease, awaiting recommendation for by mouth antibiotics for possible discharge. Objective - Vital Signs Vital signs: Vital Signs Temp 98.2 F 03/05/20 07:00 Pulse 87 03/05/20 07:00 Resp 18 03/05/20 07:00 BP 129/88 03/05/20 07:00 Pulse Ox 94 L 03/05/20 07:00 Intake & Output 03/04/20 03/05/20 03/05/20 18:59 06:59 18:59 Intake Total 50 Balance 50 Intake: Intake, IV Titration 50 Amount ceFAZolin 2 gm In Sodium 50 Chloride 0.9% 50 ml @ 100 mls/hr IVPB Q8HR [facility] Rx# :[id number] Other: Voiding Method Toilet # Voids 2 1 - Constitutional General appearance: Present: cooperative, no acute distress, obese - EENT Eyes: Present: EOMI, PERRLA, normal appearance ENT: Present: normal oropharynx Ears: bilateral: normal - Neck Neck: Present: normal ROM Carotids: bilateral: upstroke normal - Respiratory Respiratory: bilateral: CTA - Cardiovascular Rhythm: regular Heart sounds: normal: S1, S2 - Gastrointestinal General gastrointestinal: Present: normal bowel sounds - Integumentary Integumentary Comment(s): Right lower extremity mild erythema and swelling Integumentary: Present: cellulitis - Neurologic Neurologic: Present: CNII-XII intact - Musculoskeletal Musculoskeletal: Present: gait normal, strength equal bilaterally - Psychiatric Psychiatric: Present: A&O x's 3, appropriate affect, intact judgment & insight - Labs CBC & Chem 7: 03/05/20 07:27 03/03/20 11:24 Labs: Abnormal Lab Results - Last 24 Hours (Table) 03/04/20 Range/Units 06:09 PT 15.3 H (9.9-11.9) sec INR 1.45 H (0.90-1.11) Microbiology - Last 24 Hours (Table) 03/02/20 08:26 Blood Culture - Preliminary Blood No Growth after 48 hours - Imaging and Cardiology Venous US: report reviewed Assessment and Plan Assessment: Acute right lower extremity cellulitis Gouty arthritis of the great right toe Sepsis resolvednormalize white count, resolved lactic acid, no evidence of fever or tachycardia, Refill less than 3 seconds. Hypertension Sleep apnea on CPAP/BiPAP Degenerative disc disease with chronic low back pain Migraines Obesity with a BMI of 36.9 History of right lower extremity venous thrombosis History of melanoma (1) Cellulitis of right foot Current Visit: Yes Status: Acute Code(s): L03.115 - CELLULITIS OF RIGHT LOWER LIMB SNOMED Code(s): 592191459 (2) Gouty arthritis of great toe Current Visit: Yes Status: Acute Code(s): M10.9 - GOUT, UNSPECIFIED SNOMED Code(s): 663424038 Plan: Continue IV antibiotics per infectious disease, awaiting recommendation for IV antibiotics to oral antibiotics for possible discharge Continue colchicine for gouty arthritis Hopeful discharge Time with Patient: Greater than 30
[2020-03-05 11:58] LABS: INR 1.28 (0.90-1.11); Prothrombin Time 13.6 sec (9.9-11.9)
[2020-03-05 14:56] VITALS: BP 113/79; PULSE 76
--- NOTE | 2020-03-05 17:48 | P.DS ---
Providers Date of admission: 03/02/20 09:33 54-year-old male presented to the emergency center with the complaint of right foot pain and right calf pain. Patient noted that right great toe pain intensity over the last several days before increasing to right lower extremity and foot. Patient was admitted through the emergency room to the hospitalist service for right foot cellulitis, and monoarticular arthritis. Expected date of discharge: 03/05/20 Attending physician: Olman Gonzales Hospitalists services covered patient in hospital, until 03/05/2020, when attending physician Olman Gonzales resume service of hospital care. Consults: 03/03/20 13:38 Consult Physician Urgent Consulting Provider: Arturo Walters Consult Reason/Comments: cellulitis Do you want consulting provider notified?: Yes Consult for infectious disease for recommendations of IV antibiotics. Recommendation for discharge antibiotics from infectious disease. Primary care physician: Olman Gonzales - Discharge Diagnosis(es) (1) Cellulitis of right foot Status: Acute (2) Gouty arthritis of great toe Status: Acute Hospital Course: 54-year-old male was admitted with right foot cellulitis, requiring IV antibiotics. During hospital admission patient developed right great toe pain and discomfort, resulting in gouty arthritis. Patient given colchicine for pain and discomfort, improved. During admission patient's INR was subtherapeutic, required Lovenox for coverage of significant history of DVTs. Assessment: Acute right lower extremity cellulitis Acute gouty arthritis Sepsisdue to tachycardia, fever, and elevated lactic acid; resolved through the course of the stay Hypertension Hyperlipidemia Sleep apnearequiring CPAP/BiPAP Degenerative disc disease Migraines Obesity with a BMI of 36.9 History of right upper extremity venous thrombosis History of a [employer] Concerns: Concerns for discharge follow-up with office for PT/INR on Monday Patient counseled on Lovenox therapy with Coumadin, awaiting for therapeutic INR for history of DVTs Pertinent Studies: Ultrasound venous Doppler duplex lower extremity rightno evidence for DVT within the right lower extremity X-ray but completeno acute fracture dislocation. Mild spurring noted and digital MTP joint. No acute processes noted of right foot x-ray. Procedures: No procedures during hospital stay Patient Condition at Discharge: Stable Plan - Discharge Summary New Discharge Prescriptions: New Meclizine [Antivert] 25 mg PO TID PRN tab PRN Reason: Vertigo Citalopram Hydrobromide [CeleXA] 10 mg PO HS tab Warfarin [Coumadin] 6 mg PO ONCE tab traZODone HCL [Desyrel] 150 mg PO HS tab Cyclobenzaprine [Flexeril] 10 mg PO BID tab Cephalexin [Keflex] 500 mg PO Q8HR 10 Days #30 cap Atorvastatin [Lipitor] 10 mg PO HS tab Enoxaparin [Lovenox] 120 mg SQ Q12HR 7 Days #14 syringe Melatonin 10 mg PO HS #0 tablet Multivitamins, Thera [Multivitamin (formulary)] 1 each PO DAILY tab Gabapentin [Neurontin] 300 mg PO TID cap Pantoprazole [Protonix] 40 mg PO HS tablet.dr risperiDONE [RisperDAL] 0.5 mg PO HS tab atenoloL [Tenormin] 100 mg PO DAILY tab Vitamin B Complex [Vitamin B Complex] 1 cap PO DAILY lisinopriL [Zestril] 10 mg PO HS tab Continue Ascorbic Acid [Vitamin C] 1,000 mg PO DAILY Discontinued risperiDONE [RisperDAL] 0.5 mg PO HS Simvastatin [Zocor] 20 mg PO HS Gabapentin [Neurontin] 300 mg PO TID Melatonin 10 mg PO HS Citalopram Hydrobromide [CeleXA] 10 mg PO HS Vitamin B Complex 1 cap PO DAILY Atenolol 100 mg PO DAILY Meclizine [Antivert] 25 mg PO TID Lisinopril [Prinivil] 10 mg PO HS Warfarin [Coumadin] 5 mg PO DAILY traZODone HCL 150 mg PO HS Pantoprazole Sodium [Protonix] 40 mg PO HS Cyclobenzaprine [Flexeril] 10 mg PO BID Multivit-Min/Folic/Vit K/Lycop [Men's Multivitamin Tablet] 1 tab PO DAILY Discharge Medication List Ascorbic Acid [Vitamin C] 1,000 mg PO DAILY 11/13/15 [History] Atorvastatin [Lipitor] 10 mg PO HS tab 03/05/20 [Rx] Cephalexin [Keflex] 500 mg PO Q8HR 10 Days #30 cap 03/05/20 [Rx] Citalopram Hydrobromide [CeleXA] 10 mg PO HS tab 03/05/20 [Rx] Cyclobenzaprine [Flexeril] 10 mg PO BID tab 03/05/20 [Rx] Enoxaparin [Lovenox] 120 mg SQ Q12HR 7 Days #14 syringe 03/05/20 [Rx] Gabapentin [Neurontin] 300 mg PO TID cap 03/05/20 [Rx] Meclizine [Antivert] 25 mg PO TID PRN tab 03/05/20 [Rx] Melatonin 10 mg PO HS #0 tablet 03/05/20 [Rx] Multivitamins, Thera [Multivitamin (formulary)] 1 each PO DAILY tab 03/05/20 [Rx] Pantoprazole [Protonix] 40 mg PO HS tablet. 03/05/20 [Rx] Vitamin B Complex [Vitamin B Complex] 1 cap PO DAILY 03/05/20 [Rx] Warfarin [Coumadin] 6 mg PO ONCE tab 03/05/20 [Rx] atenoloL [Tenormin] 100 mg PO DAILY tab 03/05/20 [Rx] lisinopriL [Zestril] 10 mg PO HS tab 03/05/20 [Rx] risperiDONE [RisperDAL] 0.5 mg PO HS tab 03/05/20 [Rx] traZODone HCL [Desyrel] 150 mg PO HS tab 03/05/20 [Rx] Follow up Appointment(s)/Referral(s): Olman Gonzales MD [Primary Care Provider] - 03/12/20 8:30 am Arturo Walters MD [STAFF PHYSICIAN] - 1 Week (F/U with primary care. Call office if appointment needed.) Patient Instructions/Handouts: Cellulitis (DC) Discharge Disposition: HOME SELF-CARE
[2020-03-05] MEDS ORDERED: WARFARIN 3 MG TAB PO ONE (18:00)
== END 2020-03-05 16:25 | disposition home or self-care (01) | DRG 872 ==
LOC: EC 07:30 → 4SSUR 09:33
PROVIDERS: ADMIT Family Medicine; ATTEND Family Medicine
DX: A41.9 Sepsis, unspecified organism (principal); L03.115 Cellulitis of right lower limb; E87.2 Acidosis; E66.9 Obesity, unspecified; I10 Essential (primary) hypertension; E78.5 Hyperlipidemia, unspecified; G43.909 Migraine, unspecified, not intractable, without status migrainosus; K21.9 Gastro-esophageal reflux disease without esophagitis; M13.10 Monoarthritis, not elsewhere classified, unspecified site; G89.29 Other chronic pain; G47.30 Sleep apnea, unspecified; M10.9 Gout, unspecified; Z68.36 Body mass index [BMI] 36.0-36.9, adult; Z79.899 Other long term (current) drug therapy; Z79.01 Long term (current) use of anticoagulants; Z83.3 Family history of diabetes mellitus; Z82.49 Family history of ischemic heart disease and other diseases of the circulatory system; Z86.718 Personal history of other venous thrombosis and embolism; Z85.820 Personal history of malignant melanoma of skin; Z86.14 Personal history of Methicillin resistant Staphylococcus aureus infection; Z98.890 Other specified postprocedural states
CPT/HCPCS: 36415; 80048; 80053; 83605; 83735; 85025; 85610; 86140; 87040; 96361; 96374; 96375; 99285

== ENCOUNTER → 2021-06-24 | Outpatient (CLI) | payer BC ==
--- NOTE | 2021-06-24 09:26 | CT ---
EXAMINATION TYPE: CT brain wo con DATE OF EXAM: 06/24/2021 HISTORY: Headache CT DLP: 1121 mGycm. Automated Exposure Control for Dose Reduction was Utilized. TECHNIQUE: CT scan of the head is performed without contrast. COMPARISON: CT brain February 03, 2017. FINDINGS: There is no acute intracranial hemorrhage or midline shift identified. Ventricles and sul ci within normal limits in size for patient's age. Mild low attenuation in the periventricular white matter. Nasal septum redemonstrated deviated to right of midline. The globes are intact and the visu alized sinuses are clear. Prominent CSF posterior aspect posterior fossa particularly on the left c ould reflect small arachnoid cyst or jac cisterna magna. Sclerotic lesion left frontal cortex shows slight deep cortical extension without destruction current study axial images 33 and 34. No additiona l new sclerotic lesions clearly seen. IMPRESSION: 1. No acute intracranial hemorrhage or midline shift. There is mild diffuse age-related cerebral atr ophy and chronic small vessel ischemic change redemonstrated. No significant change from prior. 2. Slow findings nonspecific sclerotic focus left frontal bone just above the frontal sinus, slightly concerning as there is new posterior cortical extension without obstruction into the anterior CSF. I would advise whole-body bone scan with additional targeted views of the skull to further assess.
== END | disposition home or self-care (01) ==
LOC: RADCTMAIN 08:33
PROVIDERS: ATTEND Family Medicine
DX: I67.82 Cerebral ischemia (principal); G31.89 Other specified degenerative diseases of nervous system
CPT/HCPCS: 70450

== ENCOUNTER → 2021-07-14 | Outpatient (CLI) | payer BC ==
--- NOTE | 2021-07-14 15:05 | NM ---
EXAMINATION TYPE: NM bone scan whole body DATE OF EXAM: 07/14/2021 COMPARISON: CT brain 06/24/2021, MR brain 03/08/2017, CT brain 02/03/2017 HISTORY: C 79.9 Delayed whole-body scanning was performed following the injection of 23.6 mCi Tc 99m MDP. Images acq uired 3 hours post injection. FINDINGS: Soft tissue uptake is normal. No abnormal uptake within the skeleton to suggest metastatic disease. U ptake within the feet, shoulders, sternoclavicular joints is likely degenerative. The area of sclerosis noted in the frontal bone cephalad to the level of the sinus shows only mild up take, some increased signal on inversion recovery T2-weighted sequences on prior brain MRI suggest po ssibly hemangioma formation, there is not appreciable significant change in prior CT 02/03/2017. IMPRESSION: Findings in the calvarium, previously described CT abnormality likely benign.
== END | disposition home or self-care (01) ==
LOC: RADNMMAIN 09:42
PROVIDERS: ATTEND Family Medicine
DX: R93.0 Abnormal findings on diagnostic imaging of skull and head, not elsewhere classified (principal)
CPT/HCPCS: 78306; A9503

== ENCOUNTER → 2021-10-22 | Outpatient (CLI) | payer BC ==
--- NOTE | 2021-10-24 21:00 | CT ---
EXAMINATION TYPE: CT abdomen pelvis w con CT DLP: 1894.2 mGycm, Automated exposure control for dose reduction was used. DATE OF EXAM: 10/22/2021 4:06 PM COMPARISON: CT abdomen pelvis most recent from 12/31/2018. CLINICAL INDICATION:Male, 55 years old with history of K43.0,R10.32; LLQ pain, hernia, history of bryan anoma TECHNIQUE: Standard CT of the abdomen and pelvis following the administration of 100 cc of Isovue 3 00 IV contrast material and oral contrast. Coronal and sagittal reformats were performed. FINDINGS: LOWER CHEST: Gynecomastia changes bilaterally. ABDOMEN LIVER: Diffusely hypoattenuating parenchyma. GALLBLADDER AND BILE DUCTS: Unremarkable. PANCREAS: Unremarkable. SPLEEN: Unremarkable. ADRENAL GLANDS: Unremarkable. KIDNEYS AND URETERS: No evidence of hydronephrosis or renal calculus. The ureters are unremarkable. PELVIS BLADDER: Unremarkable REPRODUCTIVE: Penile prosthesis with tubing appears intact. Start in the right lower quadrant jaylene ears intact. ABDOMEN & PELVIS STOMACH AND BOWEL: No evidence of bowel obstruction. There is redundant sigmoid colon. The appendix i s normal. PERITONEUM: No evidence of pneumoperitoneum or free fluid. VASCULATURE: No evidence of aortic aneurysm. MUSCULOSKELETAL: Moderate disc degeneration changes are present throughout the thoracolumbar spine.. LYMPH NODES: No gross evidence for lymphadenopathy. SOFT TISSUE/ABDOMINAL WALL: Left fat filled inguinal hernia. Stimulator device with leads terminating within the thecal sac out of the [id number] superiorly. IMPRESSION: 1. No evidence of acute intra-abdominal process or finding for patient's pain. 2. Fat filled left inguinal canal. 3. Penile prosthesis and reservoir which appears intact.
== END | disposition home or self-care (01) ==
LOC: RADCTMAIN 13:58
PROVIDERS: ATTEND Surgery
DX: K43.0 Incisional hernia with obstruction, without gangrene (principal); Z85.820 Personal history of malignant melanoma of skin
CPT/HCPCS: 74177; Q9967

== ENCOUNTER → 2023-01-26 | Outpatient (CLI) | payer BC ==
--- NOTE | 2023-01-26 08:07 | XR ---
EXAMINATION TYPE: XR chest 2V DATE OF EXAM: 01/26/2023 COMPARISON: 09/09/2014 HISTORY: Shortness of breath TECHNIQUE: Frontal and lateral views of the chest are obtained. FINDINGS: Scattered senescent parenchymal changes noted. No evidence for infiltrate. No evidence for atelectasis. Heart size is stable. Mediastinal structures are stable and grossly unremarkable. No evidence for hilar prominence. Degenerative changes dorsal spine. IMPRESSION: 1. No evidence for acute pulmonary disease.
--- NOTE | 2023-01-26 10:14 | CT ---
EXAMINATION TYPE: CT abdomen pelvis w con DATE OF EXAM: 01/26/2023 COMPARISON: 10/22/2021 HISTORY: Prostate CA, history of melanoma on leg CT DLP: 1605.7 mGycm CONTRAST: CT scan of the abdomen and pelvis is performed with Oral Contrast and with IV Contrast, patient injec zoya with 100 mL of Isovue 300. FINDINGS: LUNG BASES-: No visible nodule. No infiltrate. LIVER/GB: No calcified gallstones. No space occupying hepatic lesion. Biliary tree is of normal ca liber. PANCREAS: No inflammation. No distinct mass. SPLEEN: No splenic enlargement. No lesion seen. ADRENALS: No nodule. No thickening. KIDNEYS/BLADDER: No hydronephrosis. No nephrolithiasis. No distinct renal mass. Urinary bladder g rossly unremarkable. BOWEL: Normal appendix. Normal bowel caliber. No inflammation. GENITAL ORGANS: No gross abnormality. LYMPH NODES: No greater than 1cm abdominal or pelvic lymph nodes are appreciated. AORTA: No significant abnormality. OSSEOUS STRUCTURES: No significant abnormality is seen. OTHER: Incidental note is made of penile prosthesis. Gluteal muscle calcifications are seen bilateral ly. Small fat-containing left inguinal hernia with the right inguinal hernia being patulous. IMPRESSION: 1. No CT evidence to suggest metastatic disease to the abdomen or pelvis.
--- NOTE | 2023-01-26 14:33 | NM ---
EXAMINATION TYPE: NM bone scan whole body DATE OF EXAM: 01/26/2023 COMPARISON: NONE CLINICAL INDICATION: Male, 57 years old with history of C61 PROSTATE CA; Delayed whole-body scanning was performed following the injection of 25.3 mCi Tc 99m MDP. Images acq uired 4.5 hours post injection. FINDINGS: There appears to be contamination overlying the left facial region, mid chest as well as the periscro kane region. There is degenerative uptake about the shoulders right greater than left, sternoclavicula r joints, left ankle and mid foot and bilateral great toes. Degenerative uptake is seen of the lower lumbar spine. No intense uptake is seen to suggest bony metastatic disease. IMPRESSION: No scintigraphic evidence to suggest metastatic disease to the bone.
== END | disposition home or self-care (01) ==
LOC: RADCTMAIN 07:41
PROVIDERS: ATTEND Urology
DX: C61 Malignant neoplasm of prostate (principal); R06.02 Shortness of breath; Z85.820 Personal history of malignant melanoma of skin
CPT/HCPCS: 71046; 74177; 78306; A9503; Q9967

== ENCOUNTER → 2023-02-10 | Outpatient (CLI) | payer BC ==
[2023-02-13 10:45] LABS: BUN/Creat Ratio 7.93 Ratio (12.00-20.00); Basophils # (A) 0.07 X 10*3/uL (0.00-0.10); Blood Urea Nitrogen 11.9 mg/dL (9.0-27.0); Calcium 9.7 mg/dL (8.7-10.3); Chloride 101 mmol/L (96-109); Eosinophils # (A) 0.27 X 10*3/uL (0.04-0.35); Eosinophils % (A) 3.8 %; Glucose 89 mg/dL (70-110); HCT 53.8 % (39.6-50.0); HGB 17.7 d/dL (13.0-17.0); Lymphocytes # (A) 1.82 X 10*3/uL (0.90-5.00); Lymphocytes % (A) 25.3 %; MCH 29.7 pg (27.0-32.0); MCHC 32.9 d/dL (32.0-37.0); MCV 90.3 FL (80.0-97.0); Mean Platelet Volume 11.4 FL (9.5-12.2); Monocytes # (A) 0.61 X 10*3/uL (0.20-1.00); Monocytes % (A) 8.5 %; NRBC Per 100 WBC 0 X 10*3/uL (0.00-0.01); Neutrophils # (A) 4.39 X 10*3/uL (1.80-7.70); Neutrophils % (A) 61.1 %; Platelet Count 239 X 10*3/uL (140-440); Potassium 4.8 mmol/L (3.5-5.5); RBC 5.96 X 10*6/uL (4.40-5.60); RDW 13.5 % (11.5-14.5); Sodium 142 mmol/L (135-145); WBC 7.18 X 10*3/uL (4.50-10.00)
[2023-02-13 10:46] LABS: Appearance,Urine Clear (Clear); Bacteria,Urine None Seen (None Seen); Bilirubin,Urine Negative (Negative); Blood,Urine Negative (Negative); Color,Urine Yellow (Yellow); Ketones,Urine Negative (Negative); Nitrite,Urine Negative (Negative); PH, Urine 8.5; Specific Gravity,Urine 1.019 (1.001-1.030)
== END | disposition home or self-care (01) ==
LOC: LABPAT 09:17
PROVIDERS: ATTEND Urology
DX: Z01.818 Encounter for other preprocedural examination (principal); I10 Essential (primary) hypertension; I25.2 Old myocardial infarction; C61 Malignant neoplasm of prostate; R35.0 Frequency of micturition; R94.31 Abnormal electrocardiogram [ECG] [EKG]
CPT/HCPCS: 80048; 81001; 85025; 86850; 86900; 86901; 87086; 93005

== ENCOUNTER 2023-02-16 05:33 | Day surgery (SDC) | payer BC ==
--- NOTE | 2023-02-15 12:46 | P.HPIHPCON ---
History of Present Illness H&P Date: 02/15/23 Chief Complaint: Prostate cancer This is a 57-year-old male with history of [place] 7 prostate cancer. Option of a robotic radical prostatectomy versus radiation therapy was discussed with him in detail. He agreed to proceed with a robotic radical prostatectomy. Aware th e risk which includes but not limited to bleeding, infection, injury to nearby organs. Risk of erectile dysfunction and urinary incontinence as discussed with him. Of note he does have the implantable penile prostheses, discussed there is low likelihood of injuring the device but there is potential of injuring the device. Discussed also potential of needing additional treatment for the prostate cancer. Risk of anesthesia was also discussed with him. He understood all the risk and agreed to proceed Consent for Procedure: I have explained the operation/procedure to the patient, including the risks, benefits, side effects, alternative therapies (including not receiving the proposed treatment or service), the likelihood of the patient achieving his/her goals, and potential recuperation problems for the procedure/sedation/analgesia, as well as any blood products, if indicated. I also explained to the patient the risks, benefits and side effects of the alternatives, as well as the risks related to not receiving the proposed procedure, care, treatment, or services. Past Medical History Past Medical History: Cancer, Deep Vein Thrombosis (DVT), GERD/Reflux, Hyperlipidemia, Hypertension, Prostate Disorder, Sleep Apnea/CPAP/BIPAP Additional Past Medical History / Comment(s): melanoma stage IV RT LEG, PAST JAMES WELDING INJ TO LT HAND 2004 , does not use CPAP MACHINE states he doesnt have sleep apnea anymore,DDD, CHRONIC BACK PAIN, MIGRAINES, DVT RUE and legs, spinal cord stimulator. edema to rt leg after lymph node removal. History of Any Multi-Drug Resistant Organisms: MRSA Date of last positivie culture/infection: 2004 MDRO Source:: left index finger Past Surgical History: Hernia Repair Additional Past Surgical History / Comment(s): left hand SX TO REPAIR INJURY FROM CORE MACHINE TENDER., right ziegler CA STAGE IV MELANOMA REMOVED), lymph node surgery RT LEG, PAST PAIN CLIINC PROCEDURES, RT ARM PICC LINE ,SINCE REMOVED, skin CA removed BILAT shoulders, EGD, RECENT SUN SPOTS REMOVED FROM FACE. colonoscopy Past Anesthesia/Blood Transfusion Reactions: No Reported Reaction Smoking Status: Former smoker - Past Family History Mother Family Medical History: Hypertension Father Family Medical History: Diabetes Mellitus Medications and Allergies Home Medications Medication Instructions Recorded Confirmed Type RX: Ascorbic Acid [Vitamin C] 1,000 mg PO DAILY 11/13/15 02/14/23 History RX: Atorvastatin [Lipitor] 10 mg PO HS tab 03/05/20 02/14/23 Rx RX: Citalopram Hydrobromide 10 mg PO HS tab 03/05/20 02/14/23 Rx [CeleXA] RX: Cyclobenzaprine [Flexeril] 10 mg PO BID tab 03/05/20 02/14/23 Rx RX: Gabapentin [Neurontin] 300 mg PO TID cap 03/05/20 02/14/23 Rx RX: Meclizine [Antivert] 25 mg PO TID PRN tab 03/05/20 02/14/23 Rx RX: Multivitamins, Thera 1 each PO DAILY tab 03/05/20 02/14/23 Rx [Multivitamin (formulary)] RX: Pantoprazole [Protonix] 40 mg PO HS tablet. 03/05/20 02/14/23 Rx RX: atenoloL [Tenormin] 100 mg PO DAILY tab 03/05/20 02/14/23 Rx RX: lisinopriL [Zestril] 10 mg PO HS tab 03/05/20 02/14/23 Rx RX: risperiDONE [RisperDAL] 0.5 mg PO HS tab 03/05/20 02/14/23 Rx RX: traZODone HCL [Desyrel] 150 mg PO HS tab 03/05/20 02/14/23 Rx Vitamin B Complex [Vitamin B 1 cap PO DAILY 03/05/20 02/14/23 Rx Complex] Allergies Allergy/AdvReac Type Severity Reaction Status Date / Time No Known Allergies Allergy Verified 02/14/23 08:50 Surgical - Exam - General no distress, no pain - Eyes normal ocular movement, no pale - ENT normal nares, normal mucosa - Respiratory normal expansion, normal respiratory effort - Abdomen Abdomen: soft, non tender - Psychiatric oriented to time, oriented to person, oriented to place Assessment and Plan Assessment: OR for robotic radical prostatectomy with pelvic lymph node dissection
[~2023-02-16 05:33] MED LIST changes: -AMPICILLIN 1,000 MG in SODIUM CHLORIDE 0.9% 50 ML IVPB ONE; -DEXAMETHASONE SOD PHOSPHATE 10 MG/ML 1 ML VIAL IV ONE; -GENTAMICIN 160 MG in SODIUM CHLORIDE 0.9% 100 ML IVPB ONE; +HEPARIN SODIUM,PORCINE/PF 5,000 UNIT/0.5 ML SYRINGE SQ PRN; -LACTATED RINGERS 1,000 ML IV SCH; -LIDOCAINE 1% 20 ML VIAL (10MG/ML) FOR IV START INTRADERMA PRN; -MIDAZOLAM 2 MG/2 ML VIAL IV PRN; -ONDANSETRON 4 MG/2 ML VIAL IVP ONE; -SCOPOLAMINE 1.5MG/72HR PATCH TRANSDERM ONE
[2023-02-16] MEDS ORDERED: ONDANSETRON 4 MG/2 ML VIAL IVP ONE (05:43)
[2023-02-16] MEDS ORDERED: DEXAMETHASONE SOD PHOSPHATE 4 MG/ML 1 ML VIAL IV ONE (05:43)
[2023-02-16] MEDS ORDERED: LIDOCAINE 1% (10MG/ML) FOR IV START INTRADERMA PRN (05:43)
[2023-02-16] MEDS: LACTATED RINGERS 1,000 ML IV SCH (05:47)
[2023-02-16] MEDS ORDERED: HEPARIN SODIUM,PORCINE 5,000 UNIT/ML 1 ML VIAL SQ ONE (06:46)
[2023-02-16] MEDS ORDERED: MIDAZOLAM 2 MG/2 ML VIAL IV PRN (07:00)
[2023-02-16] MEDS ORDERED: HYDROmorphone 0.5 MG/0.5 ML SYRINGE IVP PRN (07:00)
[2023-02-16] MEDS ORDERED: fentaNYL (PF) 50 MCG/ML 2 ML AMP IVP PRN (07:00)
[2023-02-16] MEDS ORDERED: HYDROmorphone (PF) 1 MG/ML ONE (07:05)
[2023-02-16] MEDS ORDERED: fentaNYL (PF) 50 MCG/ML 2 ML AMP ONE (07:05)
[2023-02-16] MEDS ORDERED: PROPOFOL 10 MG/ML 20 ML VIAL IV ONE (07:05)
[2023-02-16] MEDS ORDERED: ROCURONIUM 10 MG/ML (5 ML VIAL) IV ONE (07:05)
[2023-02-16] MEDS ORDERED: SUCCINYLCHOLINE CHLORIDE 200 MG/10 ML VIAL IV ONE (07:05)
[2023-02-16] MEDS ORDERED: KETAMINE HCL IN 0.9 % NACL 50 MG/5 ML SYRINGE ONE (07:05)
[2023-02-16] MEDS ORDERED: NEOSTIGMINE 1 MG/ML 10 ML VIAL ONE (07:05)
[2023-02-16] MEDS ORDERED: MIDAZOLAM 2 MG/2 ML VIAL ONE (07:05)
[2023-02-16] MEDS ORDERED: LIDOCAINE 1% INJ 10MG/ML (20 ML MDV) ONE (07:05)
[2023-02-16] MEDS ORDERED: ALBUTEROL HFA INHALER INHALATION ONE (07:05)
[2023-02-16] MEDS ORDERED: GLYCOPYRROLATE 0.2 MG/ML 2 ML VIAL ONE (07:05)
[2023-02-16] MEDS ORDERED: KETOROLAC 15 MG/ML 1 ML VIAL ONE (07:05)
[2023-02-16] MEDS ORDERED: BUPIVACAINE (PF) 0.25% 30 ML VIAL SQ ONE (07:10)
[2023-02-16] MEDS ORDERED: MECLIZINE 25 MG TAB PO PRN (07:14)
[2023-02-16] MEDS ORDERED: HYDROcodone/APAP 5-325MG 1 EACH TAB PO PRN (07:16)
[2023-02-16] MEDS ORDERED: LACTATED RINGERS 1,000 ML IV ONE ×2 (08:46)
--- NOTE | 2023-02-16 11:45 | P.OP ---
Date of Procedure: 02/16/23 Preoperative Diagnosis: Prostate cancer Postoperative Diagnosis: Same Procedure(s) Performed: Robotic radical prostatectomy with pelvic lymph node dissection Implants: none Anesthesia: JESU Surgeon: Wagner Birch Talent Associate #1: Allison Benjamin Estimated Blood Loss (ml): 150 Pathology: other (Prostate, bilateral seminal vesicle, bilateral pelvic lymph nodes) Condition: stable Disposition: PACU Indications for Procedure: This is a 57-year-old male with history of Dexter 7 prostate cancer. Option of a robotic radical prostatectomy versus radiation therapy was discussed with him in detail. He agreed to proceed with a robotic radical prostatectomy. Aware the risk which includes but not limited to bleeding, infection, injury to nearby organs. Risk of erectile dysfunction and urinary incontinence as discussed with him. Of note he does have the implantable penile prostheses, discussed there is low likelihood of injuring the device but there is potential of injuring the device. Discussed also potential of needing additional treatment for the prostate cancer. Risk of anesthesia was also discussed with him. He understood all the risk and agreed to proceed Operative Findings: Uncomplicated robotic radical prostatectomy with pelvic lymph node dissection Description of Procedure: After preoperative antibiotics were started, the patient was taken to the operating room. Anesthesia was induced and the patient was placed in supine position, with adequate padding of the pressure points, shoulders, back, legs and arms. He was then prepped and draped in the standard fashion. A critical pause was performed using two patient identifiers. A 16F gallego catheter was placed to gravity drainage. A pneumo-peritoneum was created with placement of a Veress needle to 20 mm Hg without complication, and a 8 Fr trocar was placed above the umbillicus. Under direct vision a 8mm robotic ports was placed lateral to each rectus slightly below the camera port. The left iliac fossa 8mm port was placed. The right ophthalmic assistant right iliac fossa 12mm port and right paramedian 5mm portwere placed. After the patient was placed in the trendelenberg position, the robot was then docked to the 8mm robotic ports and then each robotic arm and tower was checked in relation to the patient's legs and hands to avoid inadvertent compression. The peritoneal cavity was inspected. Adhesions were taken down sharply along the left lower quadrant At this time penile prostheses was inflated in order to decompress the reservoir. An inverted U-shaped incision began laterally to the left medial umbilical ligament and extended high across the midline to the right umbilical ligament. The limbs of the "U" extended to the level of the vasa on both sides. We next developed the preperitoneal space and the space of Retzius. Of note the reservoir was pushed medially along the right side, it was covered by the peritoneum Cautery was used to dissected the bladder away from the prostate. After the anterior bladder neck was incised and the bladder entered the the posterior bladder neck was exposed and the ureteral orifces identified. The posterior bladder neck was then incised and dissected away from the prostate. The vas and the seminal vesicles were now exposed and dissected to their insertions into the prostate and were not spared. The posterior layer of the Denonvillier's fascia was incised to enter jeff the plane between prostate and perirectal fat. Each lateral pedicle was controlled with a vessel sealer. No nerve preservation was performed. The puboprostatic ligament was incised where it inserted into the apex of the prostate and a plane between urethra and dorsal venous complex developed to expose the anterior urethral surface. The anterior wall of the urethra was transected with the cut setting a few millimeters distal to the apex of the prostate. The dorsal vein was ligated using 3-0 V lock bilateral obturator and external iliac lymph node packets were carefully dissected after careful visualization of the hypogastric artery and obturator nerve. There was careful attention paid to hemostasis with judicious use of cautery. The urethrovesical anastomosis was performed . the posterior denovillers was reapproximated using 3-0 V lock. A 9 and 6 inch 3-0 V-Lock suture was used to anastomose the urethra and bladder, starting at the 6:00 posterior position. Mucosa was secured in every stitch, to ensure a mucosa to mucosa anastomosis. The stitch was regularly cinched and the anastomosis tightened. Care was taken to not violate the ureteral orifices. The Gallego catheter was advanced, the bladder filled, and the anastomosis was tested, as described above. Anastomsis was watertight at 200 mL The periumbilical fascia was closed with 1-0-PDS suture in running fashion. All ports were closed with a subcuticular 4-0 monocryl and Dermabond. Sponge, instrument, and needle counts were correct at the end of the case x2. All speci mens including prostate and lymph nodes were sent to pathology for diagnosis and will be available in a week.
[2023-02-16] MEDS: D5-0.45% NACL WITH KCL 20MEQ/L 1,000 ML IV SCH ×2 (14:29→19:58)
[2023-02-16] MEDS: atenoloL 50 MG TAB PO SCH (16:55)
[2023-02-16] MEDS: CYCLOBENZAPRINE 10 MG TAB PO SCH ×2 (16:55→19:52)
[2023-02-16] MEDS: KETOROLAC 15 MG/ML 1 ML VIAL IVP SCH (17:06)
[2023-02-16] MEDS: HEPARIN SODIUM,PORCINE 5,000 UNIT/ML 1 ML VIAL SQ SCH (17:06)
[2023-02-16] MEDS: OXYBUTYNIN XL 5 MG TAB.ER.24 PO SCH (17:06)
[2023-02-16] MEDS: GABAPENTIN 300 MG CAP PO SCH ×2 (17:06→19:53)
[2023-02-16] MEDS ORDERED: CITALOPRAM HYDROBROMIDE 10 MG TAB PO SCH (21:00)
[2023-02-16] MEDS ORDERED: PANTOPRAZOLE 40 MG TABLET PO SCH (21:00)
[2023-02-16] MEDS ORDERED: traZODone HCL 50 MG TAB PO SCH (21:00)
[2023-02-16] MEDS ORDERED: risperiDONE 0.5 MG TAB PO SCH (21:00)
[2023-02-16] MEDS ORDERED: lisinopriL 10 MG TAB PO SCH (21:00)
[2023-02-16] MEDS ORDERED: ATORVASTATIN 10 MG TAB PO SCH (21:00)
[2023-02-17] MEDS: HEPARIN SODIUM,PORCINE 5,000 UNIT/ML 1 ML VIAL SQ SCH ×2 (01:04→09:02)
[2023-02-17] MEDS: KETOROLAC 15 MG/ML 1 ML VIAL IVP SCH ×2 (01:04→05:59)
[2023-02-17] MEDS: D5-0.45% NACL WITH KCL 20MEQ/L 1,000 ML IV SCH (05:49)
[2023-02-17] MEDS: LACTATED RINGERS 1,000 ML IV SCH (05:49)
--- NOTE | 2023-02-17 07:46 | P.DS ---
Providers Attending physician: Wagner Birch MD Primary care physician: Olman [facility] Course: The patient was admitted the hospital 02/16/2023. He underwent a robotic- assisted prostatectomy. He had no problems postoperatively. He has eaten. He is ambulated. His abdomen is soft. His pain is under control. He is ready for discharge home. Postoperative instructions been given. Go home with the Dias. He'll follow in the office in one week. Pathology report is pending. Condition is good. A prescription of Toradol has been given. Patient Condition at Discharge: Good Plan - Discharge Summary Discharge Rx Participant: No New Discharge Prescriptions: New Ketorolac [Toradol] 10 mg PO Q6HR PRN #20 tab PRN Reason: Pain Control No Action Ascorbic Acid [Vitamin C] 1,000 mg PO DAILY Meclizine [Antivert] 25 mg PO TID PRN tab PRN Reason: Vertigo Citalopram Hydrobromide [CeleXA] 10 mg PO HS tab traZODone HCL [Desyrel] 150 mg PO HS tab Cyclobenzaprine [Flexeril] 10 mg PO BID tab Atorvastatin [Lipitor] 10 mg PO HS tab Multivitamins, Thera [Multivitamin (formulary)] 1 each PO DAILY tab Gabapentin [Neurontin] 300 mg PO TID cap Pantoprazole [Protonix] 40 mg PO HS tablet. risperiDONE [RisperDAL] 0.5 mg PO HS tab atenoloL [Tenormin] 100 mg PO DAILY tab Vitamin B Complex [Vitamin B Complex] 1 cap PO DAILY lisinopriL [Zestril] 10 mg PO HS tab Discharge Medication List Ascorbic Acid [Vitamin C] 1,000 mg PO DAILY 11/13/15 [History] Atorvastatin [Lipitor] 10 mg PO HS tab 03/05/20 [Rx] Citalopram Hydrobromide [CeleXA] 10 mg PO HS tab 03/05/20 [Rx] Cyclobenzaprine [Flexeril] 10 mg PO BID tab 03/05/20 [Rx] Gabapentin [Neurontin] 300 mg PO TID cap 03/05/20 [Rx] Meclizine [Antivert] 25 mg PO TID PRN tab 03/05/20 [Rx] Multivitamins, Thera [Multivitamin (formulary)] 1 each PO DAILY tab 03/05/20 [Rx] Pantoprazole [Protonix] 40 mg PO HS tablet. 03/05/20 [Rx] Vitamin B Complex [Vitamin B Complex] 1 cap PO DAILY 03/05/20 [Rx] atenoloL [Tenormin] 100 mg PO DAILY tab 03/05/20 [Rx] lisinopriL [Zestril] 10 mg PO HS tab 03/05/20 [Rx] risperiDONE [RisperDAL] 0.5 mg PO HS tab 03/05/20 [Rx] traZODone HCL [Desyrel] 150 mg PO HS tab 03/05/20 [Rx] Ketorolac [Toradol] 10 mg PO Q6HR PRN #20 tab 02/17/23 [Rx] Follow up Appointment(s)/Referral(s): Wagner Birch MD [STAFF PHYSICIAN] - 1 Week Discharge Disposition: HOME SELF-CARE
[2023-02-17 08:15] VITALS: BP 115/72; PULSE 82; RESP 17; TEMP 97.7
[2023-02-17] MEDS: atenoloL 50 MG TAB PO SCH (09:02)
[2023-02-17] MEDS: OXYBUTYNIN XL 5 MG TAB.ER.24 PO SCH (09:03)
[2023-02-17] MEDS: GABAPENTIN 300 MG CAP PO SCH (09:03)
[2023-02-17] MEDS: CYCLOBENZAPRINE 10 MG TAB PO SCH (09:04)
== END 2023-02-17 09:37 | disposition home or self-care (01) ==
LOC: OR 05:33 → 4SSUR 11:39 → OR 02-17 09:37
PROVIDERS: ATTEND Urology
DX: C61 Malignant neoplasm of prostate (principal); I10 Essential (primary) hypertension; E78.5 Hyperlipidemia, unspecified; G47.33 Obstructive sleep apnea (adult) (pediatric); G89.29 Other chronic pain; Z86.73 Personal history of transient ischemic attack (TIA), and cerebral infarction without residual deficits; Z98.890 Other specified postprocedural states; Z87.891 Personal history of nicotine dependence; Z82.49 Family history of ischemic heart disease and other diseases of the circulatory system; Z83.3 Family history of diabetes mellitus; Z79.899 Other long term (current) drug therapy
CPT/HCPCS: 88307; 88309; 55866; 38570; J2250; J0330; J1644 ×2; J1100; J2710; J2405; J2001; J3010; J1170 ×2; J1885 ×2; J2704; J0665

== ENCOUNTER → 2024-01-02 | Outpatient (CLI) | payer BC ==
--- NOTE | 2024-01-31 10:45 | US ---
EXAMINATION TYPE: US abdomen complete DATE OF EXAM: 01/02/2024 COMPARISON: NONE CLINICAL INDICATION: Unknown, old with history of ; TECHNIQUE: Multiple sonographic images of the abdomen are obtained. FINDINGS: [employer] NOTES: Pancreas: wnl Liver: wnl Gallbladder: wnl Evidence for sonographic Duckworth's sign: no CBD: wnl Spleen: wnl Right Kidney: wnl Left Kidney: wnl Upper IVC: wnl Abd Aorta: wnl The liver is homogenous. The intrahepatic portion of the IVC and proximal abdominal aorta are within normal limits. There is no evidence of cholelithiasis. Common bile duct is unremarkable. The visu alized portions of the pancreas are homogenous. The spleen is unremarkable. Kidneys are symmetric a nd free of hydronephrosis. No renal lesions are seen. IMPRESSION: No discrete abnormality
--- NOTE | 2024-01-31 10:47 | US ---
Patient: Hamilton Orta Ordering Physician: Unknown, Unknown ID: [id number] Phone, Pager: Phone: N/ A Pager: N/A : [phone] Age/Gender: 58Y, M Primary Location: N/A Procedure: US abdomen APPY Study Date: 01/02/2024 9:59:00 AM Order #: N/[id number] Report Status: Unknown EXAMINATION TYPE: US abdomen APPY DATE OF EXAM: 01/02/2024 COMPARISON: NONE CLINICAL INDICATION: Unknown, old with history of ; TECHNIQUE: Multiple sonographic images of the right lower quadrant were obtained with graded compress ion. FINDINGS: APPENDIX AP Diameter (normal < 6mm): 3 mm Measured outer wall to outer wall. Is the appendix seen in its entirety from the proximal cecum to distal end: no Is the appendix compressible: Does the appendix wall appear hypervascular: no Is an appendicolith present: no Is there inflammatory changes or free fluid present: no SCALE MANAGER NOTES: IMPRESSION: Incomplete visualization of the visualized portions of caliber without inflammatory thickening.
== END | disposition home or self-care (01) ==
LOC: RADUSWWP 16:42
PROVIDERS: ATTEND Family Medicine
DX: R10.9 Unspecified abdominal pain (principal)
CPT/HCPCS: 76700; 76705

== ENCOUNTER 2024-02-23 16:24 | Observation (INO) | payer BC ==
--- NOTE | 2024-02-23 16:50 | ED ---
General Adult HPI - General Chief complaint: Fall Stated complaint: Tremors Time Seen by Provider: 02/23/24 16:36 Source: patient, EMS, RN notes reviewed Mode of arrival: EMS Limitations: no limitations - History of Present Illness Initial comments: Patient is a 58-year-old male present to the emergency department with shaking episode. Patient was outside mowing the lawn. Patient suddenly became very shaky. Patient did have a fall without injury. Patient states he became very shaky again after that. Patient never lost consciousness. Shaking was somewhat generalized. Patient had difficulty walking. Patient does complain of a moderate headache, 5 or 6/10. Patient states headache is not out of the ordinary for him as he does have a history of chronic headaches. Chronic headaches are similar to this. Patient has been tolerating oral intake. Patient has started exercising again over the past week, up to 1 hour/day. Patient has also started a testosterone supplement. Otherwise no new medications. No weakness. Shaking has essentially resolved. - Related Data Home Medications Medication Instructions Recorded Confirmed Ascorbic Acid [Vitamin C] 1,000 mg PO DAILY 11/13/15 02/16/23 Previous Rx's Medication Instructions Recorded Atorvastatin [Lipitor] 10 mg PO HS tab 03/05/20 Citalopram Hydrobromide [CeleXA] 10 mg PO HS tab 03/05/20 Cyclobenzaprine [Flexeril] 10 mg PO BID tab 03/05/20 Gabapentin [Neurontin] 300 mg PO TID cap 03/05/20 Meclizine [Antivert] 25 mg PO TID PRN tab 03/05/20 Multivitamins, Thera [Multivitamin 1 each PO DAILY tab 03/05/20 (formulary)] Pantoprazole [Protonix] 40 mg PO HS tablet. 03/05/20 Vitamin B Complex [Vitamin B 1 cap PO DAILY 03/05/20 Complex] atenoloL [Tenormin] 100 mg PO DAILY tab 03/05/20 lisinopriL [Zestril] 10 mg PO HS tab 03/05/20 risperiDONE [RisperDAL] 0.5 mg PO HS tab 03/05/20 traZODone HCL [Desyrel] 150 mg PO HS tab 03/05/20 Ketorolac [Toradol] 10 mg PO Q6HR PRN #20 tab 02/17/23 Allergies Allergy/AdvReac Type Severity Reaction Status Date / Time No Known Allergies Allergy Verified 02/16/23 06:45 Review of Systems ROS Statement: Those systems with pertinent positive or pertinent negative responses have been documented in the HPI. ROS Other: All systems not noted in ROS Statement are negative. Constitutional: Denies: fever Eyes: Denies: eye pain ENT: Denies: ear pain Respiratory: Denies: cough, dyspnea Cardiovascular: Denies: chest pain Endocrine: Denies: fatigue Gastrointestinal: Denies: abdominal pain, vomiting Genitourinary: Denies: dysuria Musculoskeletal: Denies: back pain Skin: Denies: rash Neurological: Reports: as per HPI. Denies: weakness, confusion Past Medical History Past Medical History: Cancer, Deep Vein Thrombosis (DVT), GERD/Reflux, Hyperlipidemia, Hypertension, Sleep Apnea/CPAP/BIPAP Additional Past Medical History / Comment(s): melanoma stage IV RT LEG, PAST JAMES WELDING INJ TO LT HAND , USES A CPAP MACHINE, HIATAL HERNIA ,DDD, CHRONIC BACK PAIN, MIGRAINES, DVT RUE History of Any Multi-Drug Resistant Organisms: MRSA Date of last positivie culture/infection: 2004 MDRO Source:: left index finger Past Surgical History: Hernia Repair Additional Past Surgical History / Comment(s): left hand SX TO REPAIR INJURY FROM MANAGER FINE., right ziegler CA STAGE IV MELANOMA REMOVED), lymph node surgery RT LEG, PAST PAIN CLIINC PROCEDURES, RT ARM PICC LINE ,SINCE REMOVED, skin CA removed BILAT shoulders, EGD, RECENT SUN SPOTS REMOVED FROM FACE Past Anesthesia/Blood Transfusion Reactions: No Reported Reaction Smoking Status: Never smoker Past Alcohol Use History: None Reported, Rare - Past Family History Mother Family Medical History: Hypertension Father Family Medical History: Diabetes Mellitus General Exam Limitations: no limitations General appearance: alert, in no apparent distress Head exam: Present: atraumatic, normocephalic Eye exam: Present: normal appearance, PERRL, EOMI ENT exam: Present: normal oropharynx Neck exam: Present: normal inspection. Absent: tenderness Respiratory exam: Present: normal lung sounds bilaterally Cardiovascular Exam: Present: regular rate, normal rhythm GI/Abdominal exam: Present: soft. Absent: tenderness Extremities exam: Present: normal inspection Neurological exam: Present: alert, oriented X3, CN II-XII intact. Absent: motor sensory deficit Expanded Neurological exam: Present: protecting the airway Speech: Present: fluid speech Cranial nerves: EOM's Intact: Normal, Facial Sensation: Normal Sensory exam: Upper Extremity Light Touch: Normal, Lower Extremity Light Touch: Normal Motor strength exam: RUE: 5, LUE: 5, RLE: 5, LLE: 5 Eye Response: (4) open spontaneously Motor Response: (6) obeys commands Verbal Response: (5) oriented Psychiatric exam: Present: normal affect, normal mood Skin exam: Present: normal color Course Vital Signs 02/23/24 02/23/24 02/23/24 16:27 17:33 17:56 Temperature 98.4 F Pulse Rate 83 96 96 Respiratory 18 16 16 Rate Blood Pressure 200/115 185/117 176/116 O2 Sat by Pulse 96 Oximetry 02/23/24 02/23/24 19:30 20:32 Temperature Pulse Rate 91 90 Respiratory 18 16 Rate Blood Pressure 189/126 174/119 O2 Sat by Pulse 98 98 Oximetry EKG Findings - EKG Results: EKG: interpreted by ERMD (Left axis. Q wave in [address]-T.), sinus rhythm Medical Decision Making - Medical Decision Making Was pt. sent in by a medical professional or institution (ROLANDO Lugo, FOLDING MACHINE TENDER, urgent care, hospital, or fdc...) When possible be specific @ -No Did you speak to anyone other than the patient for history (EMS, parent, family, police, friend...)? What history was obtained from this source @ - is present and provides additional history regarding patient's previous hypertension as well as episodes of Did you review nursing and triage notes (agree or disagree)? Why? @ -I reviewed and agree with nursing and triage notes Were old charts reviewed (outside hosp., previous admission, EMS record, old EKG, old radiological studies, urgent care reports/EKG's, fdc records)? Report findings @ -No old charts were reviewed Differential Diagnosis (chest pain, altered mental status, abdominal pain women, abdominal pain men, vaginal bleeding, weakness, fever, dyspnea, syncope, headache, dizziness, GI bleed, back pain, seizure, CVA, palpatations, mental health, musculoskeletal)? @ -Differential Weakness: Hypoglycemia, shock, sepsis, hyponatremia, anemia, infection, PR, ETOH, adverse medicine reaction, overdose, stroke, this is not meant to be an all-inclusive list. EKG interpreted by me (3pts min.). @ -As above X-rays interpreted by me (1pt min.). @ -None done CT interpreted by me (1pt min.). @ -CT scan of the brain does not reveal acute abnormality U/S interpreted by me (1pt. min.). @ -None done What testing was considered but not performed or refused? (CT, X-rays, U/S, labs)? Why? @ -None What meds were considered but not given or refused? Why? @ -None Did you discuss the management of the patient with other professionals (professionals i.e. DrRené, PA, FOLDING MACHINE TENDER, lab, RT, psych nurse, social services manager, patient resource coordinator, teacher, bank officer, protective services case worker)? Give summary @ -Case discussed with practitioner Laquita Butt who will admit covering for Dr. Gonzales Was smoking cessation discussed for >3mins.? @ -No Was critical care preformed (if so, how long)? @ -No Were there social determinants of health that impacted care today? How? (Homelessness, low income, unemployed, alcoholism, drug addiction, transportation, low edu. Level, literacy, decrease access to med. care, retirement, rehab)? @ -No Was there de-escalation of care discussed even if they declined (Discuss DNR or withdrawal of care, Hospice)? DNR status @ -No What co-morbidities impacted this encounter? (DM, HTN, Smoking, COPD, CAD, Cancer, CVA, ARF, Chemo, Hep., AIDS, mental health diagnosis, sleep apnea, morbid obesity)? @ -Does have history of hypertension Was patient admitted / discharged? Hospital course, mention meds given and route, prescriptions, significant lab abnormalities, going to OR and other pertinent info. @ -Patient presents with unclear shaking, possible dystonic reaction. Symptoms have essentially resolved. Patient remains hypertensive despite several medications. Patient will be admitted. Admission orders written. Undiagnosed new problem with uncertain prognosis? @ -Unclear etiology of uncertain diagnosed with uncertain prognosis Drug Therapy requiring intensive monitoring for toxicity (Heparin, Nitro, Insulin, Cardizem)? @ -No Were any procedures done? @ -No Diagnosis/symptom? @ -Dystonic reaction, hypertensive urgency Acute, or Chronic, or Acute on Chronic? @ -Acute, acute Uncomplicated (without systemic symptoms) or Complicated (systemic symptoms)? @ -Default Side effects of treatment? @ -No Exacerbation, Progression, or Severe Exacerbation? @ -No Poses a threat to life or bodily function? How? (Chest pain, USA, PR, pneumonia, PE, COPD, DKA, ARF, appy, cholecystitis, CVA, Diverticulitis, Homicidal, Suicid al, threat to staff... and all critical care pts) @ -Neurological and other function - Lab Data Result diagrams: 02/23/24 16:52 02/23/24 16:52 Lab Results 02/23/24 02/23/24 02/23/24 Range/Units 16:52 16:52 16:52 WBC 8.5 (3.8-10.6) k/uL RBC 5.80 (4.30-5.90) m/uL Hgb 18.1 H (13.0-17.5) gm/dL Hct 53.6 H (39.0-53.0) % MCV 92.5 (80.0-100.0) fL MCH 31.3 (25.0-35.0) pg MCHC 33.8 (31.0-37.0) g/dL RDW 13.6 (11.5-15.5) % Plt Count 187 (150-450) k/uL MPV 10.0 Neutrophils % 55 % Lymphocytes % 29 % Monocytes % 8 % Eosinophils % 4 % Basophils % 1 % Neutrophils # 4.7 (1.3-7.7) k/uL Lymphocytes # 2.5 (1.0-4.8) k/uL Monocytes # 0.7 (0-1.0) k/uL Eosinophils # 0.3 (0-0.7) k/uL Basophils # 0.1 (0-0.2) k/uL Sodium 140 (137-145) mmol/L Potassium 4.4 (3.5-5.1) mmol/L Chloride 107 (98-107) mmol/L Carbon Dioxide 24 (22-30) mmol/L Anion Gap 9 mmol/L BUN 20 (9-20) mg/dL Creatinine 1.77 H (0.66-1.25) mg/dL Est GFR (CKD-EPI)AfAm 49 (>60 ml/min/1.73 sqM) Est GFR (CKD-EPI)NonAf 42 (>60 ml/min/1.73 sqM) Glucose 95 (74-99) mg/dL POC Glucose (mg/dL) (70-110) mg/dL POC Glu Code Inspector ID Calcium 9.0 (8.4-10.2) mg/dL Magnesium 1.5 L (1.6-2.3) mg/dL Total Bilirubin 1.0 (0.2-1.3) mg/dL AST 32 (17-59) U/L ALT 24 (4-49) U/L Alkaline Phosphatase 81 (38-126) U/L Creatine Kinase 153 (55-170) U/L Total Protein 6.5 (6.3-8.2) g/dL Albumin 3.9 (3.5-5.0) g/dL Urine Color Yellow Urine Appearance Clear (Clear) Urine pH 6.0 (5.0-8.0) Ur Specific [place] 1.026 (1.001-1.035) Urine Protein 1+ H (Negative) Urine Glucose (UA) Negative (Negative) Urine Ketones Trace H (Negative) Urine Blood Negative (Negative) Urine Nitrite Negative (Negative) Urine Bilirubin Negative (Negative) Urine Urobilinogen 6.0 (<2.0) mg/dL Ur Leukocyte Esterase Negative (Negative) Urine RBC 2 (0-5) /hpf Urine WBC 4 (0-5) /hpf Urine Mucus Rare H (None) /hpf Urine Opiates Screen Not Detected (NotDetected) Ur Oxycodone Screen Not Detected (NotDetected) Urine Methadone Screen Not Detected (NotDetected) Ur Barbiturates Screen Not Detected (NotDetected) U Tricyclic Antidepress Detected H (NotDetected) Ur Phencyclidine Scrn Not Detected (NotDetected) Ur Amphetamines Screen Not Detected (NotDetected) U Methamphetamines Scrn Not Detected (NotDetected) U Benzodiazepines Scrn Not Detected (NotDetected) Urine Cocaine Screen Not Detected (NotDetected) U Marijuana (THC) Screen Detected H (NotDetected) Serum Alcohol <10 mg/dL 02/23/24 Range/Units 17:20 WBC (3.8-10.6) k/uL RBC (4.30-5.90) m/uL Hgb (13.0-17.5) gm/dL Hct (39.0-53.0) % MCV (80.0-100.0) fL MCH (25.0-35.0) pg MCHC (31.0-37.0) g/dL RDW (11.5-15.5) % Plt Count (150-450) k/uL MPV Neutrophils % % Lymphocytes % % Monocytes % % Eosinophils % % Basophils % % Neutrophils # (1.3-7.7) k/uL Lymphocytes # (1.0-4.8) k/uL Monocytes # (0-1.0) k/uL Eosinophils # (0-0.7) k/uL Basophils # (0-0.2) k/uL Sodium (137-145) mmol/L Potassium (3.5-5.1) mmol/L Chloride (98-107) mmol/L Carbon Dioxide (22-30) mmol/L Anion Gap mmol/L BUN (9-20) mg/dL Creatinine (0.66-1.25) mg/dL Est GFR (CKD-EPI)AfAm (>60 ml/min/1.73 sqM) Est GFR (CKD-EPI)NonAf (>60 ml/min/1.73 sqM) Glucose (74-99) mg/dL POC Glucose (mg/dL) 172 H (70-110) mg/dL POC Glu Code Inspector ID Lee Jacob Calcium (8.4-10.2) mg/dL Magnesium (1.6-2.3) mg/dL Total Bilirubin (0.2-1.3) mg/dL AST (17-59) U/L ALT (4-49) U/L Alkaline Phosphatase (38-126) U/L Creatine Kinase (55-170) U/L Total Protein (6.3-8.2) g/dL Albumin (3.5-5.0) g/dL Urine Color Urine Appearance (Clear) Urine pH (5.0-8.0) Ur Specific [place] (1.001-1.035) Urine Protein (Negative) Urine Glucose (UA) (Negative) Urine Ketones (Negative) Urine Blood (Negative) Urine Nitrite (Negative) Urine Bilirubin (Negative) Urine Urobilinogen (<2.0) mg/dL Ur Leukocyte Esterase (Negative) Urine RBC (0-5) /hpf Urine WBC (0-5) /hpf Urine Mucus (None) /hpf Urine Opiates Screen (NotDetected) Ur Oxycodone Screen (NotDetected) Urine Methadone Screen (NotDetected) Ur Barbiturates Screen (NotDetected) U Tricyclic Antidepress (NotDetected) Ur Phencyclidine Scrn (NotDetected) Ur Amphetamines Screen (NotDetected) U Methamphetamines Scrn (NotDetected) U Benzodiazepines Scrn (NotDetected) Urine Cocaine Screen (NotDetected) U Marijuana (THC) Screen (NotDetected) Serum Alcohol mg/dL Disposition Clinical Impression: Hypertensive urgency, Dystonic drug reaction Disposition: ADMITTED IP TO THIS HOSP Is patient prescribed a controlled substance at d/c from ED?: No Referrals: Olman Gonzales MD [Primary Care Provider] - 1-2 days Time of Disposition: 20:59
[2024-02-23] MEDS: SODIUM CHLORIDE 0.9% 1,000 ML IV STA (16:59)
[2024-02-23 17:11] LABS: Appearance,Urine Clear (Clear); Bilirubin,Urine Negative (Negative); Blood,Urine Negative (Negative); Color,Urine Yellow; Glucose,Urine (UA) Negative (Negative); Ketones,Urine Trace (Negative); Leukocyte Esterase,Urine Negative (Negative); Mucus,Urine Rare /hpf; Nitrite,Urine Negative (Negative); Protein,Urine 1+ (Negative); RBC,Urine 2 /hpf (0-5); Specific Gravity,Urine 1.026 (1.001-1.035); WBC,Urine 4 /hpf (0-5)
[2024-02-23 17:20] LABS: Amphetamine Screen,Urine Not Detected (NotDetected); Barbiturate Screen,Urine Not Detected (NotDetected); Benzodiazepines Screen,Urine Not Detected (NotDetected); Cocaine Screen,Urine Not Detected (NotDetected); Methadone Screen, Urine Not Detected (NotDetected); Opiate Screen,Urine Not Detected (NotDetected); Oxycodone Screen, Urine Not Detected (NotDetected); Phencyclidine Screen,Urine Not Detected (NotDetected); Tricyclic Antidepressant,Urine Detected (NotDetected); Urn Cannabinoid Scrn Detected (NotDetected)
[2024-02-23 17:21] LABS: ALT 24 U/L (4-49); AST 32 U/L (17-59); African American GFR (CKD) 49 (>60 ml/min/1.73 sqM); Albumin 3.9 g/dL (3.5-5.0); Alcohol <10 mg/dL; Alkaline Phosphatase 81 U/L (38-126); Anion Gap 9 mmol/L; Blood Urea Nitrogen 20 mg/dL (9-20); Carbon Dioxide 24 mmol/L (22-30); Chloride 107 mmol/L (98-107); Creatine Kinase 153 U/L (55-170); Glucose 95 mg/dL (74-99); Magnesium 1.5 mg/dL (1.6-2.3); Non-African American GFR(CKD) 42 (>60 ml/min/1.73 sqM); Potassium 4.4 mmol/L (3.5-5.1); Sodium 140 mmol/L (137-145); Total Protein 6.5 g/dL (6.3-8.2)
[2024-02-23 17:28] LABS: Glucose,Whole Blood 172 mg/dL (70-110)
--- NOTE | 2024-02-23 17:28 | CT ---
EXAMINATION TYPE: CT brain wo con DATE OF EXAM: 02/23/2024 COMPARISON: 06/24/2021 HISTORY: seizure CT DLP: 1182.[address] of the brain was performed. The ventricles, basal cisterns and sulci overlying the cerebral convexities demonstrate mild enlargem ent. There is no evidence for intracranial hemorrhage or sulcal effacement. There is decreased attenuation about the periventricular white matter and deep white matter of both c erebral hemispheres, compatible with chronic small vessel ischemia. Differential diagnosis does inclu de demyelination. No mass effects are seen.No midline shift. Osseous calvarium is intact. If symptoms persist consider MRI. IMPRESSION: 1. Age related atrophic and chronic small vessel ischemic change without acute intracranial process s een at this time. [facility], , 02/23/2024 5:25 PM
[2024-02-23 17:34] LABS: Basophils # (A) 0.1 k/uL (0-0.2); Basophils % (A) 1 %; Eosinophils # (A) 0.3 k/uL (0-0.7); Eosinophils % (A) 4 %; HCT 53.6 % (39.0-53.0); HGB 18.1 gm/dL (13.0-17.5); Lymphocytes # (A) 2.5 k/uL (1.0-4.8); Lymphocytes % (A) 29 %; MCH 31.3 pg (25.0-35.0); MCHC 33.8 g/dL (31.0-37.0); MCV 92.5 fL (80.0-100.0); Monocytes # (A) 0.7 k/uL (0-1.0); Monocytes % (A) 8 %; Neutrophils # (A) 4.7 k/uL (1.3-7.7); Neutrophils % (A) 55 %; Platelet Count 187 k/uL (150-450); RDW 13.6 % (11.5-15.5); WBC 8.5 k/uL (3.8-10.6)
[2024-02-23] MEDS: ENALAPRILAT 1.25 MG/ML 1 ML VIAL IVP STA ×2 (17:35→19:53)
[2024-02-23] MEDS: MAGNESIUM OXIDE 400 MG TAB PO STA (17:35)
[2024-02-23] MEDS: FUROSEMIDE 10 MG/ML 4 ML VIAL IV STA (18:32)
[2024-02-23] MEDS ORDERED: NALOXONE 0.4 MG/ML 1 ML VIAL IV PRN (21:00)
[2024-02-23] MEDS ORDERED: traMADol 50 MG TAB PO PRN (21:06)
[2024-02-23] MEDS: atenoloL 50 MG TAB PO SCH (21:34)
[2024-02-23] MEDS: SODIUM CHLORIDE 0.9% 1,000 ML IV SCH (21:39)
[2024-02-23] MEDS: lisinopriL 20 MG TAB PO SCH (21:46)
[2024-02-23] MEDS: traZODone HCL 50 MG TAB PO SCH (23:15)
[2024-02-23] MEDS: hydrALAZINE HCL 20 MG/ML 1 ML VIAL IVP PRN (23:16)
[2024-02-24] MEDS: amLODIPine 5 MG TAB PO SCH (06:47)
[2024-02-24] MEDS: HYDROcodone/APAP 5-325MG 1 EACH TAB PO PRN (06:47)
[2024-02-24] MEDS: PROCHLORPERAZINE INJ 10 MG/2 ML VIAL IVP STA (06:48)
[2024-02-24 07:01] LABS: Basophils # (A) 0.1 k/uL (0-0.2); Basophils % (A) 0 %; Eosinophils # (A) 0.2 k/uL (0-0.7); Eosinophils % (A) 2 %; HCT 56.7 % (39.0-53.0); HGB 18.7 gm/dL (13.0-17.5); Lymphocytes # (A) 1.6 k/uL (1.0-4.8); Lymphocytes % (A) 13 %; MCH 30.6 pg (25.0-35.0); MCV 92.9 fL (80.0-100.0); Mean Platelet Volume 9.6; Monocytes # (A) 0.8 k/uL (0-1.0); Monocytes % (A) 6 %; Neutrophils # (A) 9.9 k/uL (1.3-7.7); Neutrophils % (A) 77 %; Platelet Count 217 k/uL (150-450); RBC 6.11 m/uL (4.30-5.90); RDW 13.8 % (11.5-15.5); WBC 12.8 k/uL (3.8-10.6)
[2024-02-24 07:47] LABS: ALT 32 U/L (4-49); AST 36 U/L (17-59); African American GFR (CKD) 67 (>60 ml/min/1.73 sqM); Albumin 3.8 g/dL (3.5-5.0); Alkaline Phosphatase 68 U/L (38-126); Anion Gap 10 mmol/L; Blood Urea Nitrogen 18 mg/dL (9-20); Calcium 8.8 mg/dL (8.4-10.2); Carbon Dioxide 24 mmol/L (22-30); Chloride 103 mmol/L (98-107); Glucose 89 mg/dL (74-99); Magnesium 1.3 mg/dL (1.6-2.3); Non-African American GFR(CKD) 58 (>60 ml/min/1.73 sqM); Potassium 4.3 mmol/L (3.5-5.1); Sodium 137 mmol/L (137-145); Total Bilirubin 1.5 mg/dL (0.2-1.3); Total Protein 6.7 g/dL (6.3-8.2)
[2024-02-24] MEDS: PANTOPRAZOLE 40 MG TABLET PO SCH (09:51)
[2024-02-24] MEDS: CYCLOBENZAPRINE 10 MG TAB PO SCH (09:51)
[2024-02-24] MEDS: MULTIVITAMINS, THERA 1 EACH TAB PO SCH (09:51)
[2024-02-24] MEDS: ATORVASTATIN 20 MG TAB PO SCH (09:51)
[2024-02-24] MEDS: ASCORBIC ACID 500 MG TAB PO SCH (09:52)
[2024-02-24] MEDS: MECLIZINE 25 MG TAB PO SCH (09:52)
[2024-02-24] MEDS: MAGNESIUM OXIDE 400 MG TAB PO SCH (09:53)
[2024-02-24] MEDS: CITALOPRAM HYDROBROMIDE 10 MG TAB PO SCH (09:54)
[2024-02-24] MEDS: allopurinoL 100 MG TAB PO SCH (09:54)
[2024-02-24] MEDS: ENOXAPARIN 40 MG/0.4 ML SYRINGE SQ SCH (09:54)
[2024-02-24 11:31] VITALS: BMI 35.5
[2024-02-24] MEDS ORDERED: Magnesium Replacement Protocol 1 EACH MISC MISCELLANE PRN (12:50)
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
[2024-02-24] MEDS: levETIRAcetam 500 MG TAB PO SCH (13:18)
[2024-02-24] MEDS: FOLIC ACID-VIT B COMPLEX-VIT C 1 CAP PO SCH (13:19)
[2024-02-24] MEDS: MAGNESIUM SULFATE-D5W PMX 1 GM in DEXTROSE/WATER 1 100ML.BAG IVPB SCH (13:19)
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
[2024-02-24 14:45] LABS: NT-Pro-B-Type Natriuretic Pept 1930 pg/mL
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
[2024-02-24] MEDS: ASPIRIN 81 MG PO SCH (16:21)
[2024-02-24] MEDS: hydroCHLOROthiazide 25 MG TAB PO SCH (16:22)
[2024-02-24] MEDS: carvediloL 6.25 MG TAB PO SCH (17:32)
[2024-02-24] MEDS ORDERED: traZODone HCL 50 MG TAB PO SCH (21:00)
[2024-02-24 23:32] LABS: Chol/HDL Ratio 3.38 Ratio; LDL Cholesterol,Calculated 29.3 mg/dL (0.0-131.0)
[2024-02-25 06:40] LABS: ALT 37 U/L (4-49); AST 36 U/L (17-59); African American GFR (CKD) 56 (>60 ml/min/1.73 sqM); Albumin 3.9 g/dL (3.5-5.0); Alkaline Phosphatase 71 U/L (38-126); Anion Gap 6 mmol/L; Blood Urea Nitrogen 18 mg/dL (9-20); Calcium 8.8 mg/dL (8.4-10.2); Carbon Dioxide 25 mmol/L (22-30); Chloride 103 mmol/L (98-107); Glucose 99 mg/dL (74-99); Non-African American GFR(CKD) 48 (>60 ml/min/1.73 sqM); Potassium 4.5 mmol/L (3.5-5.1); Sodium 134 mmol/L (137-145); Total Bilirubin 1.2 mg/dL (0.2-1.3); Total Protein 6.6 g/dL (6.3-8.2)
[2024-02-25 06:42] LABS: Basophils # (A) 0.1 k/uL (0-0.2); Basophils % (A) 1 %; Eosinophils # (A) 0.3 k/uL (0-0.7); Eosinophils % (A) 3 %; Lymphocytes # (A) 2.1 k/uL (1.0-4.8); Lymphocytes % (A) 22 %; MCH 30.9 pg (25.0-35.0); MCHC 33.2 g/dL (31.0-37.0); MCV 93.2 fL (80.0-100.0); Mean Platelet Volume 9.6; Monocytes # (A) 0.6 k/uL (0-1.0); Monocytes % (A) 6 %; Neutrophils % (A) 65 %; Platelet Count 220 k/uL (150-450); RDW 13.9 % (11.5-15.5); WBC 9.3 k/uL (3.8-10.6)
[2024-02-25 07:04] LABS: HCT 57.8 % (39.0-53.0); HGB 19.2 gm/dL (13.0-17.5)
[2024-02-25] MEDS ORDERED: amLODIPine 10 MG TAB PO SCH (09:00)
[2024-02-25] MEDS: lisinopriL 20 MG TAB PO SCH (09:44)
--- NOTE | 2024-02-25 09:44 | CA ---
Transthoracic Echo Report Name: Hamilton Orta Age: 58 Gender: M : 1965 Exam Date: 02/24/2024 14:19 Exam Location: [facility] Ht (in): 69 Wt (lb): 240 Ordering Physician: Mathew Thomas MD ([id number]) Attending/Referring Phys: Ot[facility] Consultant Jojo Ferro RDCS Procedure CPT: Indications: stroke, hypertension Cardiac Hx: Technical Quality: Technically difficult study Contrast 1: Definity Total Dose (mL): 2 Contrast 2: Total Dose (mL): MEASUREMENTS (Male / Female) Normal Values 2D ECHO LV Diastolic Diameter PLAX 5.2 cm 4.2 - 5.9 / 3.9 - 5.3 cm LV Systolic Diameter PLAX 4.4 cm IVS Diastolic Thickness 1.3 cm 0.6 - 1.0 / 0.6 - 0.9 cm LVPW Diastolic Thickness 1.4 cm 0.6 - 1.0 / 0.6 - 0.9 cm LV Relative Wall Thickness 0.5 LVOT Diameter 2.4 cm LV Diastolic Volume MOD BP 150.3 cm??? 67 - 155 / 56 - 104 cm??? LV Systolic Volume MOD BP 95.1 cm??? 22 - 58 / 19 - 49 cm??? LV Ejection Fraction MOD BP 36.7 % >= 55 % LV Cardiac Index MOD BP 2167.0 cm???/min???m??? LV Diastolic Volume MOD 4C 145.8 cm??? LV Systolic Volume MOD 4C 94.4 cm??? LV Ejection Fraction MOD 4C 35.2 % LV Cardiac Index MOD 4C 2017.7 cm???/min???m??? LV Diastolic Length 4C 10.3 cm LV Systolic Length 4C 9.3 cm LV Diastolic Volume MOD 2C 152.8 cm??? LV Systolic Volume MOD 2C 92.3 cm??? LV Ejection Fraction MOD 2C 39.6 % LV Cardiac Index MOD 2C 2373.3 cm???/min???m??? LV Diastolic Length 2C 10.2 cm LV Systolic Length 2C 9.7 cm LA Volume 39.0 cm??? 18 - 58 / 22 - 52 cm??? LA Volume Index 16.6 cm???/m??? 16 - 28 cm???/m??? Ascending Aorta Diameter 3.6 cm DOPPLER AV Peak Velocity 107.2 cm/s AV Peak Gradient 4.6 mmHg AV Mean Velocity 76.8 cm/s AV Mean Gradient 2.6 mmHg AV Velocity Time Integral 15.9 cm LVOT Peak Velocity 101.8 cm/s LVOT Peak Gradient 4.1 mmHg LVOT Velocity Time Integral 16.9 cm LVOT Stroke Volume 76.6 cm??? LVOT Stroke Volume Index 34.3 ml/m??? LVOT Cardiac Index 3006.0 cm???/min???m??? AV Area Cont Eq vti 4.8 cm??? AV Area Cont Eq pk 4.3 cm??? MV Area PHT 4.9 cm??? Mitral E Point Velocity 37.0 cm/s Mitral A Point Velocity 64.6 cm/s Mitral E to A Ratio 0.6 MV Deceleration Time 154.5 ms PV Peak Velocity 84.7 cm/s PV Peak Gradient 2.9 mmHg FINDINGS Left Ventricle Left ventricular ejection fraction is estimated at 35-40 %. Mildly increased septal wall thickness. Severely increased left ventricular systolic volume. Moderately decreased left ventricular ejection fraction with global hypokinesis. Right Ventricle Normal right ventricular size . Unable to estimate the right ventricular systolic pressure. Unable to estimate the right ventricular systolic pressure. Right Atrium Normal right atrial size. Left Atrium Normal left atrial size. Mitral Valve Mitral valve thickened. No evidence for mitral valve prolapse. No mitral stenosis. No mitral regurgitation. Aortic Valve Trileaflet aortic valve. Aortic valve sclerosis. No aortic stenosis. No aortic regurgitation. Tricuspid Valve Structurally normal tricuspid valve. No tricuspid stenosis. No tricuspid regurgitation. Pulmonic Valve Structurally normal pulmonic valve. No pulmonic stenosis. No pulmonic regurgitation. Pericardium No pericardial effusion. Aorta Normal size aortic root and proximal ascending aorta. CONCLUSIONS Left ventricular ejection fraction is estimated at 35-40 %. Moderately decreased left ventricular ejection fraction with global hypokinesis. No significant valvular dysfunction Normal RV size and systolic function Previewed by: Dr Mathew Thomas (Electronically Signed) Final Date: 25 February 2024 09:43
[2024-02-25 09:56] VITALS: RESP 17
--- NOTE | 2024-02-25 11:05 | P.PN ---
Subjective Progress Note Date: 02/25/24 HISTORY OF PRESENTING ILLNESS 58-year-old male with PMH of prostate cancer s/p resection, melanoma in renata ssi, hypertension presented to the ER because of concerns of shakiness and concerns of seizures. Patient was working in his lawn around 3 PM when his left leg started shaking uncontrollably which extended to his left upper extremity and then bent over to his right upper extremity. This lasted for less than a minute. Due to this his got concerned who witnessed the event and called the EMS. Patient never lost consciousness or had a fall. After the event patient does report feeling weak. He never had bowel bladder loss of control. He denies having any active chest pain chest pressure shortness of breath. He denies any palpitations lightheadedness or dizziness prior to the event or during the event or after the event. CT head showed chronic small vessel ischemic changes. Admission ECG shows sinus rhythm, borderline left axis deviation, His labs showed hemoglobin 18.1, BUN 20, creatinine 1.7, repeat 1.3 Social history: Patient denies any smoking, recreational drug use marijuana or alcohol use. Patient does report using anabolic steroids in the past. He is currently using testosterone Family history: Patient denies any family Struve premature coronary artery disease sudden cardiac Progress Note Feb 25, 2024 Patient is seen and examined at bedside this a.m. His blood pressure is better controlled on the current regimen. His heart rate is controlled. Telemetry does not show any arrhythmias. PHYSICAL EXAMINATION Vital signs reviewed. Head: Normocephalic. Eyes: Sclerae nonicteric. Neck: Brisk carotid upstroke, no jugular venous distention. Lungs: Clear to auscultation. Heart: Regular rate and rhythm, S1-S2, no S3, no murmur or rub. Abdomen: Soft nontender, positive bowel sounds. Extremities: No edema, intact distal pulses. Neuro: Alert, oritented, no focal deficits. Detailed neuro exam was not performed. 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 Would recommend tight blood pressure control to prevent progression of cardiovascular disease Start aspirin 81 mg. Continue Lipitor 20 mg daily Discontinue atenolol. Start Coreg 6.25 mg twice daily. Increase lisinopril to 40 mg daily, reduce amlodipine to 5 mg daily, add HCTZ 25 mg daily. Start Farxiga 10 mg daily Patient is using testosterone which is the reason for his secondary polycythemia . I have recommended not to use it. Recommend outpatient sleep study. Recommend outpatient follow-up with Dr. Thomas. Recommend outpatient cardiac stress test and repeat echocardiogram in 3 months Objective - Vital Signs Vital signs: Vital Signs Temp 97.8 F 02/25/24 08:00 Pulse 76 02/25/24 08:10 Resp 17 02/25/24 08:10 BP 133/78 02/25/24 08:00 Pulse Ox 96 02/25/24 08:00 FiO2 Intake & Output 02/24/24 02/25/24 02/25/24 18:59 06:59 18:59 Intake Total 438 700 Balance 438 700 Weight 109.1 kg 109.5 kg Intake: Intake, IV Titration 80 160 Amount Sodium Chloride 0.9% 1, 80 160 000 ml @ 20 mls/hr IV . Q24H [facility] Rx#:[id number] Oral 358 540 Other: Voiding Method Urinal Urinal Urinal # Voids 2 2 - Labs CBC & Chem 7: 02/25/24 05:57 02/25/24 05:57 Labs: Abnormal Lab Results - Last 24 Hours (Table) 02/24/24 02/24/24 02/24/24 Range/Units 14:08 14:08 19:14 RBC (4.30-5.90) m/uL Hgb (13.0-17.5) gm/dL Hct (39.0-53.0) % Sodium (137-145) mmol/L Creatinine (0.66-1.25) mg/dL Troponin I 0.041 H* 0.038 H* (0.000-0.034) ng/mL Triglycerides 167.00 H (0.00-149.00) mg/dL HDL Cholesterol 26.30 L (40.00-60.00) mg/dL 02/25/24 02/25/24 Range/Units 05:57 05:57 RBC 6.20 H (4.30-5.90) m/uL Hgb 19.2 H* (13.0-17.5) gm/dL Hct 57.8 H* (39.0-53.0) % Sodium 134 L (137-145) mmol/L Creatinine 1.58 H (0.66-1.25) mg/dL Troponin I (0.000-0.034) ng/mL Triglycerides (0.00-149.00) mg/dL HDL Cholesterol (40.00-60.00) mg/dL
[2024-02-25] MEDS ORDERED: DAPAGLIFLOZIN PROPANEDIOL 10 MG TABLET PO SCH (11:15)
--- NOTE | 2024-02-25 12:17 | P.PN ---
Subjective Progress Note Date: 02/25/24 I am following-up with patient and no further episode of jerking/shaking of extremities. Is tolerating Keppra well so far. Objective - Vital Signs Vital signs: Vital Signs Temp 97.8 F 02/25/24 08:00 Pulse 76 02/25/24 08:10 Resp 17 02/25/24 08:10 BP 133/78 02/25/24 08:00 Pulse Ox 96 02/25/24 08:00 FiO2 Intake & Output 02/24/24 02/25/24 02/25/24 18:59 06:59 18:59 Intake Total 438 700 Balance 438 700 Weight 109.1 kg 109.5 kg Intake: Intake, IV Titration 80 160 Amount Sodium Chloride 0.9% 1, 80 160 000 ml @ 20 mls/hr IV . Q24H [facility] Rx#:[id number] Oral 358 540 Other: Voiding Method Urinal Urinal Urinal # Voids 2 2 1 # Bowel Movements 0 - Exam GENERAL: The patient is sitting up in bed and is not in acute distress. Integumenary: Has old purplish/darkly pigment discoloroation in right lower e xtremity (from old melanoma). NEUROLOGICAL: Higher mental function: The patient is awake, alert, oriented to self, place and time. Patient is following commands. No aphasia and no neglect. Cranial nerves: The pupils are round, equal and reactive to light and accommodation. Visual chávez are full to confrontation throughout. Extraocular movement is intact no nystagmus is noted. Facial sensation is normal to touch throughout. The facial strength is normal throughout. Hearing is normal bila terally to hand rub. Tongue is midline and moved [id number] without any difficulty. No dysarthria is noted. Shoulder shrug is normal bilaterally. Motor: The strength is 5 over 5 throughout. Normal tone and bulk. Cerebellum: Normal finger to nose heel to ziegler bilaterally. Sensation: Sensation is normal to touch throughout. Reflexes (right/left): 2+ throughout. Plantars are downgoing bilaterally. Some of the workup during this hospital visit consisted of: Initial creatinine is 1.77. Magnesium is 1.5. The rest of the chemistry panel is unremarkable. Urine drug screen is positive for tricyclic antidepressant as well as marijuana. Serum alcohol is less than 10. CT of the head is reported as age-related atrophy and chronic small vessel ischemic change without acute intracranial process at this time. I reviewed the CT and agree with the report. 2D echo: Is reported as left ventricular ejection fraction of 35 to 40%. Moderately decreased left ventricular ejection fraction with global hypokinesis. - Labs CBC & Chem 7: 02/25/24 05:57 02/25/24 05:57 Labs: Abnormal Lab Results - Last 24 Hours (Table) 02/24/24 02/24/24 02/24/24 Range/Units 14:08 14:08 19:14 RBC (4.30-5.90) m/uL Hgb (13.0-17.5) gm/dL Hct (39.0-53.0) % Sodium (137-145) mmol/L Creatinine (0.66-1.25) mg/dL Troponin I 0.041 H* 0.038 H* (0.000-0.034) ng/mL Triglycerides 167.00 H (0.00-149.00) mg/dL HDL Cholesterol 26.30 L (40.00-60.00) mg/dL 02/25/24 02/25/24 Range/Units 05:57 05:57 RBC 6.20 H (4.30-5.90) m/uL Hgb 19.2 H* (13.0-17.5) gm/dL Hct 57.8 H* (39.0-53.0) % Sodium 134 L (137-145) mmol/L Creatinine 1.58 H (0.66-1.25) mg/dL Troponin I (0.000-0.034) ng/mL Triglycerides (0.00-149.00) mg/dL HDL Cholesterol (40.00-60.00) mg/dL Assessment and Plan Assessment: This is a 58-year-old gentleman with history of melanoma at different parts of the body who follows up at [facility] and has surveillance checkup and he was told he is in remission and last time he seen him was in June who presented emergency department because of body jerking. He stated that yesterday around 3 PM he noticed that he his left foot uncontrollable shaking and then ascended up involved the entire left lower extremity then eventually to the right lower extremity then eventually bilateral upper extremity with numbness after that and the episode lasted 10 to 15 seconds. Then within 15 minutes she had another episode and was more violent. About 2 years ago he had an episode of left leg was completely weak of unknown etiology. He also presents with elevated blood pressure 2 episode of uncontrollable body shaking/jerking initially involving the left distal lower extremity ascending up to involve the right lower extremity then bilateral upper extremity with numbness: I am concerned about focal motor seizure without loss of consciousness (and seems patient has a july)--no further episode while in the hospital Hypertensive urgency Underlying melanoma involving different region of the body and he was notified he is in remission Chronic lower back pains and lumbar degenerative disease status post pain pump Hypertension Plan: Started the patient on Keppra 500 mg twice daily on 02/24/2024 especially since the patient has 2 episode and I am concerned about seizures. In addition I am concerned that his episode of left leg weakness could have been a seizure but not definitely He wants the EEG as outpatient so will have the EEG to coordinate it as outpatient but if not then to have performed by his outpatient neurologist. Recommend MRI of the brain with and without and that should be coordinated by his outpatient neurologist especially since the patient has a pain pump which she cannot have MRI in our facility. Patient stated that he is going to have MRI of the lumbar spine the end of this month and I notified him that he needs to speak with his neurologist to also obtain MRI of the brain in addition. Seizure precautions seizure pads Recommend the patient to follow-up with his oncology team over [facility] regarding his history of melanoma Per [place] [facility] because of the seizure, to avoid driving for 6 months until no further episode from the last event, avoid heights, avoid swimming assisted or using heavy machinery Will defer the rest of the medical management to primary and other specialist Patient follows-up with Dr. Hawkins's team for neurological care and he has an appointment at end of this month. The plan is discussed with patient and primary team. There is no further neurological work-up. Time with Patient: Less than 30
--- NOTE | 2024-02-25 12:34 | P.DS ---
Providers Date of admission: 02/23/24 21:01 Expected date of discharge: 02/25/24 Attending physician: Phillip Hill Consults: 02/23/24 21:06 Consult Physician Routine Consulting Provider: Nikita Bruce Consult Reason/Comments: dystonic rxn v other Do you want consulting provider notified?: Yes 02/24/24 10:12 Consult Physician Routine Consulting Provider: Emilia Lovell Consult Reason/Comments: hypertension Do you want consulting provider notified?: Yes Primary care physician: Olman Gonzales Hospital Course: Discharge diagnoses; Hypertensive urgency: #TAPAN: Cardiomyopathy Essential hypertension Seizures #Hypomagnesemia: #Hyperlipidemia: #Mood disorder: Hospital course; 58-year-old male with a past medical history of hypertension, hyperlipidemia, GERD, vertigo, mood disorder, and gout presents with complaints of shaking episodes. Patient reports yesterday he was outside mowing the lawn when he suddenly became very shaky. Patient reports the shaking started in his lower legs and slowly crept up his body. Patient reports he did fall but did not injure himself and reports no loss of consciousness. Patient found it very difficult to walk during this time due to weakness. Patient also reports he has been having moderate headaches, 5 or 6 out of 10 which she reports is not out of the ordinary for him as he has a history of chronic headaches. Patient reports this chronic headache different to previous ones. States he has started exercising again over the past week for up to 1 hour a day. Also reports he has started taking a testosterone supplement, otherwise patient denies taking new medications, denies weakness. Family history: Noncontributory Surgical history: Prostate removal and melanoma removal Social history: Noncontributory Initial lab work from the ER was significant for WBC 12.8, hemoglobin 19.7, MCV 92.9, creatinine 1.77--> 1.35, magnesium 1.3, and total bili 1.5. EKG done in the ER showed heart rate of 95 bpm, no ST segment elevation or depression seen, no T-wave inversions seen. Sinus rhythm, borderline left axis deviation. ER CT Head: No acute intracranial process Patient admitted to internal medicine service 02/24. Patient seen and examined. Patient was seen by neurology, started patient on Keppra, recommend outpatient EEG as patient cannot get an EEG till Monday and patient does not want to stay to in the hospital for that. Cardiology also just with patient medications, started on Coreg, lisinopril, Norvasc and HCTZ. Recommended patient to stop using testosterone. PHYSICAL EXAMINATION: GENERAL: The patient is alert and oriented x3, not in any acute distress. Well developed, well nourished. HEENT: Pupils are round and equally reacting to light. EOMI. No scleral icterus. No conjunctival pallor. Normocephalic, atraumatic. No pharyngeal erythema. No thyromegaly. CARDIOVASCULAR: S1 and S2 present. No murmurs, rubs, or gallops. PULMONARY: Chest is clear to auscultation, no wheezing or crackles. ABDOMEN: Soft, nontender, nondistended, normoactive bowel sounds. No palpable organomegaly. MUSCULOSKELETAL: No joint swelling or deformity. EXTREMITIES: No cyanosis, clubbing, or pedal edema. NEUROLOGICAL: Gross neurological examination did not reveal any focal deficits. SKIN: No rashes. Dictation was produced using [employer] dictation software. please excuse any grammatical, word or spelling errors. Plan - Discharge Summary Discharge Rx Participant: Yes New Discharge Prescriptions: New lisinopriL [Zestril] 40 mg PO DAILY 90 Days #90 tab levETIRAcetam [Keppra] 500 mg PO Q12HR 30 Days #60 tab Aspirin 81 mg PO DAILY 90 Days #90 tab carvediloL [Coreg] 6.25 mg PO BID-W/MEALS 90 Days #90 tab Dapagliflozin Propanediol [Farxiga] 10 mg PO DAILY 90 Days #90 tab hydroCHLOROthiazide [Hydrodiuril] 25 mg PO DAILY 90 Days #90 tab amLODIPine [Norvasc] 5 mg PO DAILY 30 Days #30 tab Continue Ascorbic Acid [Vitamin C] 1,000 mg PO DAILY traZODone HCL [Desyrel] 150 mg PO HS tab Cyclobenzaprine [Flexeril] 10 mg PO BID tab risperiDONE [RisperDAL] 0.5 mg PO HS tab Pantoprazole [Protonix] 40 mg PO DAILY Citalopram Hydrobromide [CeleXA] 10 mg PO DAILY Vitamin B Complex 1 cap PO DAILY Rosuvastatin [Crestor] 10 mg PO DAILY Multivitamins, Thera [Multivitamin (formulary)] 1 tab PO DAILY allopurinoL [Zyloprim] 100 mg PO DAILY Meclizine [Antivert] 25 mg PO DAILY Discontinued atenoloL [Tenormin] 100 mg PO DAILY lisinopriL [Zestril] 20 mg PO DAILY Discharge Medication List Ascorbic Acid [Vitamin C] 1,000 mg PO DAILY 11/13/15 [History] Cyclobenzaprine [Flexeril] 10 mg PO BID tab 03/05/20 [Rx] risperiDONE [RisperDAL] 0.5 mg PO HS tab 03/05/20 [Rx] traZODone HCL [Desyrel] 150 mg PO HS tab 03/05/20 [Rx] Citalopram Hydrobromide [CeleXA] 10 mg PO DAILY 02/23/24 [History] Meclizine [Antivert] 25 mg PO DAILY 02/23/24 [History] Multivitamins, Thera [Multivitamin (formulary)] 1 tab PO DAILY 02/23/24 [History] Pantoprazole [Protonix] 40 mg PO DAILY 02/23/24 [History] Rosuvastatin [Crestor] 10 mg PO DAILY 02/23/24 [History] Vitamin B Complex 1 cap PO DAILY 02/23/24 [History] allopurinoL [Zyloprim] 100 mg PO DAILY 02/23/24 [History] Aspirin 81 mg PO DAILY 90 Days #90 tab 02/25/24 [Rx] Dapagliflozin Propanediol [Farxiga] 10 mg PO DAILY 90 Days #90 tab 02/25/24 [Rx] amLODIPine [Norvasc] 5 mg PO DAILY 30 Days #30 tab 02/25/24 [Rx] carvediloL [Coreg] 6.25 mg PO BID-W/MEALS 90 Days #90 tab 02/25/24 [Rx] hydroCHLOROthiazide [Hydrodiuril] 25 mg PO DAILY 90 Days #90 tab 02/25/24 [Rx] levETIRAcetam [Keppra] 500 mg PO Q12HR 30 Days #60 tab 02/25/24 [Rx] lisinopriL [Zestril] 40 mg PO DAILY 90 Days #90 tab 02/25/24 [Rx] Follow up Appointment(s)/Referral(s): Olman Gonzales MD [Primary Care Provider] - 1-2 days Mathew Thomas MD [Medical Doctor] - 1 Week Merlin Mcneill MD [STAFF PHYSICIAN] - 1 Week Ambulatory/Diagnostic Orders: Ambulatory Miscellaneous Order [MISC.AMB] Location: None Selected Patient Instructions/Handouts: Mediterranean Diet (DC) Activity/Diet/Wound Care/Special Instructions: Patient instructed not to drive, operate heavy machinery or swim alone for 6 months Discharge Disposition: HOME SELF-CARE
[2024-02-25 13:17] VITALS: BP 133/84; PULSE 93; TEMP 98.3
[2024-02-25] MEDS ORDERED: amLODIPine 5 MG TAB PO SCH (14:00)
== END 2024-02-25 13:41 | disposition home or self-care (01) ==
LOC: EC 16:24 → 3SCARD 21:01
PROVIDERS: ADMIT Hospitalist; ATTEND Hospitalist
DX: I16.0 Hypertensive urgency (principal); I10 Essential (primary) hypertension; N17.9 Acute kidney failure, unspecified; I42.9 Cardiomyopathy, unspecified; D75.1 Secondary polycythemia; G47.33 Obstructive sleep apnea (adult) (pediatric); R56.9 Unspecified convulsions; E83.42 Hypomagnesemia; E78.5 Hyperlipidemia, unspecified; M10.9 Gout, unspecified; K21.9 Gastro-esophageal reflux disease without esophagitis; F39 Unspecified mood [affective] disorder; E66.9 Obesity, unspecified; G89.29 Other chronic pain; M54.50 Low back pain, unspecified; Z85.820 Personal history of malignant melanoma of skin; Z96.0 Presence of urogenital implants; Z86.718 Personal history of other venous thrombosis and embolism; Z85.46 Personal history of malignant neoplasm of prostate; Z82.49 Family history of ischemic heart disease and other diseases of the circulatory system; Z79.899 Other long term (current) drug therapy; Z87.891 Personal history of nicotine dependence; W19.XXXA Unspecified fall, initial encounter
CPT/HCPCS: 96376 ×2; 96365; 96366; 96375 ×2; 99285; 36415; 93005; 93306; 83880; 80061; 80053 ×3; 82550; 83735 ×3; 84443; 84484; 85025 ×3; 81001; 80306; 80320; 83036; 70450; G0378 ×3; J0360 ×2; J0780; J1940; Q9957; J3475

== ENCOUNTER → 2024-03-06 | Outpatient (CLI) | payer BC ==
--- NOTE | 2024-03-07 01:41 | EEG ---
ELECTROENCEPHALOGRAM REPORT CLINICAL HISTORY: This is a 58-year-old gentleman with reported leg shaken. The video EEG is obtained to evaluate for seizure epileptiform activity. RELEVANT MEDICATION: Risperdal. EEG TYPE: This is a routine 21-channel EEG with video using the 10/20 electrode placement system. DESCRIPTION: Wakefulness is only obtained. During awake state, the posterior-dominant rhythm consists of [id number] voltage of 10.5 to 11 hertz activity that is well modulated and well sustained. There is no physiological stage 2 sleep architecture. There is no focal slowing. Interictal and ictal is none. ACTIVATION PROCEDURE: Photic stimulation did not evoke a posterior driving response. There is no abnormality during the photic stimulation. Hyperventilation is not performed. CLINICAL INTERPRETATION: This is a normal routine EEG during awake state. There is no focal slowing, epileptiform discharge, or seizure on the EEG. A normal routine EEG does not rule out underlying epilepsy. Clinical correlation is recommended. TORRES / TA: [id number] /
== END ==
LOC: NEUROMAIN 08:22
PROVIDERS: ATTEND Student in an Organized Health Care Education/Training Program
DX: R56.9 Unspecified convulsions (principal); Z87.891 Personal history of nicotine dependence
CPT/HCPCS: 95816